=== PATIENT | female | born 1965 | race Caucasian/White ===

== ENCOUNTER 2019-06-07 14:12 | Emergency (ER) | payer OTHER, SELFPAY ==
--- NOTE | 2019-06-07 14:15 | ED.SKABFB ---
HPI - Skin/Abscess/Foreign Bdy General Chief complaint: Skin/Abscess/Foreign Body Stated complaint: Possible Shingles Time Seen by Provider: 06/07/19 14:25 Source: patient and RN notes reviewed Mode of arrival: ambulatory Limitations: no limitations History of Present Illness HPI narrative: 54-year-old female presents with concern for generalized itching. Reports rash to her groin area. Reports burning itching to the palms of her hands and the soles of her feet for 2 days. Reports some control with Benadryl that has stopped working. She denies nausea, vomiting, difficulty swallowing, swollen tongue, swollen lips, stridor, wheezing, difficulty breathing MD complaint: rash Related Data Home Medications Medication Instructions Recorded Confirmed hydrocodone-acetaminophen 1 tablet PO Q6H PRN 06/07/19 06/07/19 ustekinumab [Stelara] 260 mg IV ONCE 06/07/19 06/07/19 zolpidem [Ambien] 10 mg PO HS PRN 06/07/19 06/07/19 Allergies Allergy/AdvReac Type Severity Reaction Status Date / Time cholecalciferol (vitamin D3) Allergy Mild BROKE OUT Verified 11/25/17 19:25 WITH RASH folic acid Allergy Mild BROKE OUT Verified 11/25/17 19:25 WITH RASH codeine Allergy Unknown Verified 11/15/13 11:30 Penicillins Allergy Unknown Verified 11/15/13 11:30 pineapple AdvReac Severe THROAT Verified 11/25/17 19:25 CLOSED UP CALCIUM COMBINATION NO.1 Allergy Mild BROKE OUT Uncoded 11/25/17 19:25 WITH RASH CYANOCOBALAMIN Allergy Mild BROKE OUT Uncoded 11/25/17 19:25 WITH RASH PYRIDOXINE HCL Allergy Mild BROKE OUT Uncoded 11/25/17 19:25 WITH RASH Review of Systems Review of Systems: Narrative: CONSTITUTIONAL: Denies malaise, chills, sweats, or fever. ENT: Denies swollen lips, swollen tongue CARDIOVASCULAR: Denies chest pain, palpitations, or edema. RESPIRATORY: Denies cough or dyspnea. GASTROINTESTINAL: Denies abdominal pain, nausea, vomiting SKIN: Reports generalized itching, rash, burning palms of hands and soles of feet NEUROLOGIC: Denies headache. All systems reviewed & are unremarkable except as noted in HPI and below [facility] Social History Social History (Updated 01/28/19 @ 16:18 by Sebastien Rivers PA-C) Smoking status: Former smoker Alcohol intake: current Gender identity (if verbalized by the patient): Female Comments At time of signature, agree with nursing past medical, surgical, social and family history. There is no relevant family history pertinent to the presenting complaint Exam Narrative: Exam Narrative: GENERAL: Well-appearing, well-nourished, and in no acute distress. HEAD: Normocephalic EYES: PERRLA, conjunctivae clear ENT: Nares clear. Mucous membranes moist. Oropharynx without edema, erythema or lesions. NECK: Supple. CHEST: No respiratory distress. Clear to auscultation. No bony deformities, no asymmetry. Speaks in full sentences. HEART: Regular rate and rhythm. No murmur heard. SKIN: Warm, dry, no rash. Maculopapular rash noted to back, groin, arms NEURO: Alert and oriented x3. PSYCH: Normal mood and affect Course Course Emergency Course: Patient is aware of diagnosis, understands and agrees to treatment plan. Anticipatory guidance given. Patient agrees to follow-up as directed and is aware of reasons to seek care at the emergency department. Portions of this record may have been created with voice recognition software Vital Signs Vital signs: Vital Signs Temperature 98.2 F 06/07/19 14:21 Pulse Rate 81 06/07/19 14:21 Respiratory Rate 18 06/07/19 14:21 Blood Pressure 131/81 06/07/19 14:21 Pulse Oximetry 98 06/07/19 14:21 Temperature 98.2 F 06/07/19 14:21 Pulse Rate 81 06/07/19 14:21 Respiratory Rate 18 06/07/19 14:21 Blood Pressure 131/81 06/07/19 14:21 Pulse Oximetry 98 06/07/19 14:21 Reviewed. MDM - Skin/Abscess/Foreign Bdy MDM Narrative Medical decision making narrative: Does not appear at this time to be erythema multiforme,
[2019-06-07 14:21] VITALS: BP 131/81; PULSE 81; RESP 18; TEMP 36.8; O2SAT 98
== END 2019-06-07 14:41 | disposition home or self-care (01) ==
PROVIDERS: Emergency Provider Nurse Practitioner; PCP Family Medicine
DX: L50.9 Urticaria, unspecified (principal); Z87.891 Personal history of nicotine dependence; K50.90 Crohn's disease, unspecified, without complications
CPT/HCPCS: 99213; G0463

== ENCOUNTER 2019-06-09 06:15 | Emergency (ER) | payer OTHER, SELFPAY ==
--- NOTE | ~2019-06-09 | CT_ITS ---
EXAMINATION: CT abdomen pelvis w con DATE: 06/09/2019 07:31 INDICATION: Crohn's disease presenting with vomiting and abdominal pain TECHNIQUE: Computed tomography (CT) of the abdomen and pelvis was performed with 100 mL Omnipaque-350 intravenous contrast. Automated exposure control and iterative reconstruction technique were employe d. The dose-length product was 1512.57 mGy-cm. COMPARISON: 01/28/2019 and 12/11/2017 FINDINGS: Mild discoid atelectasis at the lingula. Heart size is normal. No pericardial or pleural effusion. Ch ronic wall thickening in the distal esophagus. Liver, gallbladder, spleen, pancreas, bilateral adrena l glands and right kidney are normal. 2 mm nonobstructing stone at a lower pole calyx of the left kid lucina. Change of likely prior terminal ileal and cecal resection with right lower quadrant ileocolic an astomosis. Remainder of the bowels are normal with no abnormal bowel wall thickening. Bladder, anteve rted uterus and bilateral adnexa are unremarkable. No free intraperitoneal gas or fluid. Unchanged mi ld likely reactive periportal lymphadenopathy. IMPRESSION: 1. Chronic wall thickening the distal esophagus which could be seen with esophagitis related to eithe r reflux or Crohn's disease. If not previously evaluated would consider endoscopy for further evaluat ion. 2. Nonobstructing left nephrolithiasis. Reviewed, dictated and finalized at location A. IMPRESSION: 1. Chronic wall thickening the distal esophagus which could be seen with esopha gitis related to either reflux or Crohn's disease. If not previously evaluated would consider endoscopy for further evaluation. 2. Nonobstructing left nephrolithiasis.
--- NOTE | 2019-06-09 06:21 | ED.ABDPAIN ---
HPI - Abdominal Pain General Chief Complaint: Abdominal Pain Stated Complaint: ABD PAIN Time Seen by Provider: 06/09/19 06:21 Source: patient Mode of arrival: ambulatory Limitations: no limitations History of Present Illness HPI narrative: Patient is a 54-year-old female with a history of Crohn's disease who presents for evaluation of upper abdominal pain. Pain has been severe this morning, sharp and stabbing in nature in the upper abdomen without radiation to the back, shoulder or lower abdomen. Patient reports a history of Crohn's disease, she follows with Dr. Roy at [facility], is taking Stelara, but has been unable to tolerate her medications this morning. Patient was seen yesterday at an urgent care for itching, hives and started on a steroid, but states she has been unable to take these medications due to the vomiting. No diarrhea, patient reports decreased amount of bowel movements. She denies abdominal distention. She denies fever, cough, congestion, chest pain or shortness of breath. Related Data Home Medications Medication Instructions Recorded Confirmed hydrocodone-acetaminophen 1 tablet PO Q6H PRN 06/07/19 06/07/19 ustekinumab [Stelara] 260 mg IV ONCE 06/07/19 06/07/19 zolpidem [Ambien] 10 mg PO HS PRN 06/07/19 06/07/19 Allergies Allergy/AdvReac Type Severity Reaction Status Date / Time folic acid Allergy Mild BROKE OUT Verified 11/25/17 19:25 WITH RASH codeine Allergy Unknown Rash Verified 06/09/19 06:28 Penicillins Allergy Unknown Rash Verified 06/09/19 06:28 pineapple AdvReac Severe THROAT Verified 11/25/17 19:25 CLOSED UP CALCIUM COMBINATION NO.1 Allergy Mild BROKE OUT Uncoded 11/25/17 19:25 WITH RASH PYRIDOXINE HCL Allergy Mild BROKE OUT Uncoded 11/25/17 19:25 WITH RASH Review of Systems Review of Systems: Narrative: CONSTITUTIONAL: Denies fever, chills, or sweats. ENT: Denies rhinorrhea, congestion, sore throat, or otalgia. CARDIOVASCULAR: Denies chest pain RESPIRATORY: Denies cough or dyspnea. GASTROINTESTINAL: Reports abdominal pain, nausea and vomiting GENITOURINARY: Denies dysuria or hematuria. SKIN: Denies rash, reports itching MUSCULOSKELETAL: Denies back pain, joint pain, or myalgia. NEUROLOGIC: Denies headache, numbness, or weakness. [facility] Past Medical History Medical History (Updated 06/09/19 @ 08:07 by Carol Freeman MD) Crohn's disease Normal colonoscopy Surgical History Surgical History (Updated 06/09/19 @ 06:29 by Carol Freeman MD) H/O colectomy Family History Family History Other Family history of arthritis Family history of mental disorder Social History Social History Smoking status: Former smoker Alcohol intake: current Gender identity (if verbalized by the patient): Female Exam Narrative: Exam Narrative: GENERAL: Awake, alert, conversant HEAD: Normocephalic, atraumatic. EYES: PERRLA and EOMI. ENT: Nares clear, no rhinorrhea or epistaxis. Mucous membranes dry NECK: Supple. CHEST: No acute distress, breathing even and nonlabored HEART: Regular rate, sinus rhythm ABDOMEN: Obese abdomen, nondistended, tender in the epigastric area EXTREMITIES: Normal range of motion. No edema. SKIN: Warm, dry, no rash. No urticaria appreciated to the arms, thorax, back, face today on exam. NEURO: No focal deficits. Alert and oriented x3 Course Course Emergency Course: Patient evaluated for abdominal pain in the setting of Crohn's disease. Patient with mild leukocytosis. On exam, she does have mild epigastric tenderness without EKG changes or other anginal equivalents. Lab and imaging evaluations are reviewed and patient is felt to be a reasonable candidate for outpatient management. Patient has no evidence of obstruction, abscess or perforation. Symptoms most consistent with esophagitis. Mild transaminitis, n
[2019-06-09 06:23] VITALS: BP 143/82; PULSE 76; RESP 18; TEMP 36.3; O2SAT 100
--- NOTE | 2019-06-09 06:28 | PC.NURSE ---
Patient attempted to urinate for sample, was not able to. Will retry.
[2019-06-09] MEDS: ONDANSETRON INJ 4 MG/2 ML VIAL IV PUSH (06:41)
[2019-06-09] MEDS: MORPHINE SULFATE 4 MG/ML INJ IV PUSH (06:41)
[2019-06-09] MEDS: SODIUM CHLORIDE 0.9% IV 1,000 ML 999 ML IV CONT (06:41)
[2019-06-09 06:46] LABS: Basophils Absolute Auto 0.1 K/mm3 (0.0-0.1); Basophils Percent Auto 0.5 % (0.2-1.2); Eosinophils Absolute Auto 0.2 K/mm3 (0-0.3); Eosinophils Percent Auto 1.2 % (0-4.4); Hematocrit 36.3 % (37.0-47.0); Hemoglobin 10.8 g/dL (12.0-15.0); Immature Granulocyte Absolute 0.07 K/mm3 (0.00-0.031); Immature Granulocyte Percent A 0.5 % (0-0.5); Lymphocytes Absolute Auto 2.78 K/mm3 (0.9-3.2); Lymphocytes Percent Auto 21.3 % (18.3-44.2); Mean Corpuscular HGB Conc 29.8 g/dl (32-36); Mean Corpuscular Hemoglobin 25.6 pg (26-34); Mean Platelet Volume 9.6 fl (7.4-10.4); Monocytes Absolute Auto 0.7 K/mm3 (0.1-0.6); Monocytes Percent Auto 5.4 % (2.6-8.5); Neutrophils Absolute Auto 9.3 K/mm3 (1.3-6.7); Neutrophils Percent Auto 71.1 % (45.5-73.1); Platelet Count Result 484 k/mm3 (150-375); Red Blood Count 4.22 M/mm3 (4.2-5.4); Red Cell Distribution Width 17.4 % (11.5-14.5); White Blood Count 13.1 K/mm3 (4.5-10.0)
[2019-06-09] MEDS: methylPREDNISolone SOD SUCC 125 MG VIAL IV PUSH (06:46)
[2019-06-09 06:48] LABS: Hypochromasia 1+ (NORMAL); Platelet Estimate Increased (Adequate)
[2019-06-09 07:00] LABS: Alkaline Phosphatase 72 U/L (38-126); Aspartate Amino Transferase 53 U/L (14-36); Bilirubin,Total 0.4 mg/dL (0.2-1.3); Blood Urea Nitrogen 10 mg/dL (7-17); Carbon Dioxide 24 mmol/L (22-30); Estimated CRCL calculation 129 ml/min; Estimated Glomerular Filt Rate > 60; Glucose 100 mg/dL (65-105)
[2019-06-09 07:37] LABS: Alanine Aminotransferase 61 U/L (4-35); Calcium 9.5 mg/dL (8.4-10.2); Chloride 110 mmol/L (98-107); Lipase 81 U/L (23-300); Sodium 140 mmol/L (137-145)
--- NOTE | 2019-06-09 08:08 | ECG_ITS ---
Measurements Intervals [place] Rate: 60 P: 10 PA: 167 QRS: -4 QRSD: 90 T: 26 QT: 402 QTc: 402 Interpretive Statements SINUS RHYTHM BASELINE WANDER- I, II NORMAL ECG Electronically Signed On 06-09-2019 9:00:57 CDT by Marcel Ortiz D.O.
[2019-06-09] MEDS: BELLADONNA ALK/PHENOB ELIX 10 ML, MAG HYDROX/ALUMINUM HYD/SIMETH 30 ML, LIDOCAINE HCL 2... PO (08:32)
[2019-06-09 08:35] VITALS: BP 137/81; PULSE 69; RESP 16; O2SAT 100
[2019-06-09 09:09] VITALS: BP 132/89
== END 2019-06-09 09:10 | disposition home or self-care (01) ==
PROVIDERS: Emergency Provider Emergency Medicine; PCP Family Medicine
DX: K20.9 Esophagitis, unspecified (principal); R10.10 Upper abdominal pain, unspecified; Z90.49 Acquired absence of other specified parts of digestive tract; K50.90 Crohn's disease, unspecified, without complications; Z87.891 Personal history of nicotine dependence; N20.0 Calculus of kidney
CPT/HCPCS: 36415; 74177; 80053; 83690; 85025; 93005; 96361; 96365; 96375; 99284; A9270; J0131; J2270; J2405; J2930; J7030; Q9967

== ENCOUNTER 2019-06-14 16:31 | Emergency (ER) | payer OTHER, SELFPAY ==
--- NOTE | ~2019-06-14 | CT_ITS ---
EXAMINATION: CT abdomen pelvis w con INDICATION: Abdominal pain, history of Crohn disease TECHNIQUE: Computed tomographic images of the abdomen and pelvis were obtained after the administrati on of 100 cc of Omnipaque 350 intravenous contrast. The dose-length product (DLP) was 1450.53 mGy-cm. Automated exposure control and iterative reconstruction technique were employed. COMPARISON: 06/09/2019 FINDINGS: Minimal dependent atelectasis is present in the lung bases. The heart size is normal. Circu mferential wall thickening of the distal esophagus is again noted. The liver, spleen, pancreas, gallb ladder, and adrenal glands are normal. The right kidney is unremarkable. There is a 2 mm nonobstructi ng stone of the left kidney. Surgical changes are noted near the terminal ileum. No pathologically en larged abdominal or pelvic lymph nodes are identified. Colonic diverticulosis is present without evid ence of diverticulitis. There is no free intraperitoneal gas or evidence of bowel obstruction. There is mild lumbar spondylosis. IMPRESSION: 1. No CT correlate for the patient's symptoms. 2. Unchanged mild wall thickening of the distal esophagus which could reflect esophagitis related to Crohn disease, consider follow-up endoscopy. 3. Nonobstructing left nephrolithiasis. Reviewed, dictated and finalized at location A. IMPRESSION: 1. No CT correlate for the patient's symptoms. 2. Unchanged mild wall thickening of the distal esophagus which could reflect e sophagitis related to Crohn disease, consider follow-up endoscopy. 3. Nonobstructing left nephrolithiasis.
[2019-06-14 16:40] VITALS: BP 127/115; PULSE 119; RESP 20; TEMP 36.4; O2SAT 98
--- NOTE | 2019-06-14 16:40 | ED_ITS ---
I attest that this documentation has been prepared under the direction and in the presence of . Osvaldo Munoz Scribe 06/14/19;16:40 HPI - Nausea/Vomiting/Diarrhea General Chief complaint: Abdominal Pain Stated complaint: vomiting and abdominal pain Time Seen by Provider: 06/14/19 16:34 History of Present Illness HPI Narrative: PCP said to come and titi bianchi- crohns doc cannot drink able to keep some things down no feve cough sore throat urinary sx diarrhea with mucous- had it before- unusual abd pain h/o pancreatitis no drinking drugs no smoking no blood thinners no cp sob swelling hives monday- went away slowly abd pain nml when she flares up Related Data Home Medications Medication Instructions Recorded Confirmed hydrocodone-acetaminophen 1 tablet PO Q6H PRN 06/07/19 06/07/19 ustekinumab [Stelara] 260 mg IV ONCE 06/07/19 06/07/19 zolpidem [Ambien] 10 mg PO HS PRN 06/07/19 06/07/19 Allergies Allergy/AdvReac Type Severity Reaction Status Date / Time folic acid Allergy Mild BROKE OUT Verified 06/14/19 16:46 WITH RASH codeine Allergy Unknown Rash Verified 06/14/19 16:46 Penicillins Allergy Unknown Rash Verified 06/14/19 16:46 pineapple AdvReac Severe THROAT Verified 06/14/19 16:46 CLOSED UP CALCIUM COMBINATION NO.1 Allergy Mild BROKE OUT Uncoded 11/25/17 19:25 WITH RASH PYRIDOXINE HCL Allergy Mild BROKE OUT Uncoded 11/25/17 19:25 WITH RASH PMFSH Past Medical History Medical History (Updated 06/10/19 @ 00:00 by Ashkan Borjas) Crohn's disease Normal colonoscopy Surgical History Surgical History (Updated 06/09/19 @ 06:29 by Carol Freeman MD) H/O colectomy Social History Social History Smoking status: Former smoker Alcohol intake: current Gender identity (if verbalized by the patient): Female Discharge Plan Discharge Prescriptions: No Action zolpidem [Ambien] 10 mg Tablet 10 mg PO HS PRN (Reason: Sleep) RF: 0 Stelara 130 mg/26 mL Solution 260 mg IV ONCE RF: 0 hydrocodone-acetaminophen 2.5-325 mg Tablet 1 tablet PO Q6H PRN (Reason: Pain, Moderate) RF: 0 prednisone 20 mg tablet 40 mg PO DAILY 5 Days Qty: 10 RF: 0 dicyclomine 20 mg tablet 20 mg PO BID Qty: 10 RF: 0 ondansetron HCl [Zofran] 4 mg tablet 4 mg PO Q8H PRN (Reason: nausea and vomiting) Qty: 7 RF: 0 methocarbamol [Robaxin-750] 750 mg tablet 750 mg PO TID Qty: 5 RF: 0 metoclopramide HCl [Reglan] 10 mg tablet 10 mg PO Q6H PRN (Reason: nausea and vomiting) Qty: 14 RF: 0
--- NOTE | 2019-06-14 16:47 | ED.ABDPAIN ---
HPI - Abdominal Pain General Chief Complaint: Abdominal Pain Stated Complaint: vomiting and abdominal pain Time Seen by Provider: 06/14/19 16:34 History of Present Illness HPI narrative: Pt is a 54 y/o female who presents to the ED with c/o generalized ABD pain that is consistent with her Crohn's disease. Her GI specialist, Dr. Roy talked to her on the phone and recommended she come to the ED. She states that she was in the ED 3 days ago with the same Sx and was Rx Zofran and D/C home. Pt notes that she has been having N/V/D, and is only able to keep some things down. She states that her BM's have mucous in them which is not unusual when she has a Crohn's flare up. Pt denies fever, cough, sore throat, urinary Sx, CP, SOB, or swelling. She notes that she had a hives breakout on Monday (5 days ago) that went away slowly. Pt has a H/O pancreatitis. She denies being on any blood thinners. MD elicited complaint: abdominal pain Pertinent past history: other (Crohn's disease) Location: diffuse Relieving factors: nothing Context: confirms history of similar episodes (Crohn's disease) Associated symptoms: nausea, vomiting and diarrhea Related Data Home Medications Medication Instructions Recorded Confirmed hydrocodone-acetaminophen 1 tablet PO Q6H PRN 06/07/19 06/07/19 ustekinumab [Stelara] 260 mg IV ONCE 06/07/19 06/07/19 zolpidem [Ambien] 10 mg PO HS PRN 06/07/19 06/07/19 Allergies Allergy/AdvReac Type Severity Reaction Status Date / Time folic acid Allergy Mild BROKE OUT Verified 06/14/19 16:46 WITH RASH codeine Allergy Unknown Rash Verified 06/14/19 16:46 Penicillins Allergy Unknown Rash Verified 06/14/19 16:46 pineapple AdvReac Severe THROAT Verified 06/14/19 16:46 CLOSED UP CALCIUM COMBINATION NO.1 Allergy Mild BROKE OUT Uncoded 11/25/17 19:25 WITH RASH PYRIDOXINE HCL Allergy Mild BROKE OUT Uncoded 11/25/17 19:25 WITH RASH Review of Systems Review of Systems: All systems reviewed & are unremarkable except as noted in HPI and below Constitutional: Constitutional: Denies fever(s) ENT: Denies sore throat Cardiovascular: Cardiovascular: Denies chest pain Respiratory: Respiratory: Denies cough and Denies dyspnea Gastrointestinal: Gastrointestinal: Reports abdominal pain, Reports diarrhea (with mucous), Reports nausea and Reports vomiting Genitourinary: Genitourinary: Denies other (urinary Sx) Integumentary/Breasts: Skin/Breast: Denies swelling and Reports rash (resolved) [facility] Past Medical History Medical History Anxiety Arthritis Bipolar 1 disorder Bronchitis Crohn's disease DDD (degenerative disc disease) Depression Fibromyalgia Normal colonoscopy Pancreatitis Shingles UTI (urinary tract infection) Surgical History Surgical History H/O bilateral cataract extraction H/O colectomy H/O dilation and curettage H/O tubal ligation History of bowel resection Hx of appendectomy Social History Social History Smoking status: Former smoker Alcohol intake: current Gender identity (if verbalized by the patient): Female Exam Narrative: Exam Narrative: GENERAL: Well-appearing, well-nourished, and in no acute distress. HEAD: Normocephalic, atraumatic. EYES: PERRLA and EOMI. ENT: Nares clear, no rhinorrhea or epistaxis. Mucous membranes moist. Oropharynx without tonsillar hypertrophy exudate or other lesions. NECK: Supple. No adenopathy or masses. CHEST: Clear to auscultation. No respiratory distress. No wheezes rales or rhonchi HEART: Regular rate and rhythm. No murmur heard. Normal peripheral pulses. ABDOMEN: Soft, diffusely tender with voluntary guarding, nondistended EXTREMITIES: Normal range of motion. No edema. SKIN: Warm, dry, no rash. NEURO: No focal deficits. Alert and oriented x3. Cranial nerves II th
[2019-06-14] MEDS: PROMETHAZINE HCL 25 MG/ML AMPUL 12.5 MG IV PUSH (17:09)
[2019-06-14] MEDS: FAMOTIDINE 20 MG/2 ML VIAL IV PUSH (17:10)
[2019-06-14] MEDS: SODIUM CHLORIDE 0.9% IV 1,000 ML 999 ML IV CONT ×2 (17:10→18:42)
[2019-06-14 17:23] LABS: Basophils Percent Auto 0.4 % (0.2-1.2); Eosinophils Absolute Auto 0.4 K/mm3 (0-0.3); Eosinophils Percent Auto 3.3 % (0-4.4); Hematocrit 38.5 % (37.0-47.0); Hemoglobin 11.7 g/dL (12.0-15.0); Immature Granulocyte Absolute 0.06 K/mm3 (0.00-0.031); Immature Granulocyte Percent A 0.5 % (0-0.5); Lymphocytes Absolute Auto 1.38 K/mm3 (0.9-3.2); Lymphocytes Percent Auto 12.3 % (18.3-44.2); Mean Corpuscular HGB Conc 30.4 g/dl (32-36); Mean Corpuscular Hemoglobin 25.3 pg (26-34); Mean Corpuscular Volume 83.3 fl (80-100); Mean Platelet Volume 9.2 fl (7.4-10.4); Monocytes Absolute Auto 0.7 K/mm3 (0.1-0.6); Monocytes Percent Auto 6.4 % (2.6-8.5); Neutrophils Absolute Auto 8.6 K/mm3 (1.3-6.7); Neutrophils Percent Auto 77.1 % (45.5-73.1); Platelet Count Result 437 k/mm3 (150-375); Red Blood Count 4.62 M/mm3 (4.2-5.4); Red Cell Distribution Width 17.2 % (11.5-14.5); White Blood Count 11.2 K/mm3 (4.5-10.0)
[2019-06-14 17:25] LABS: Add Urine Microscopic? NO; Appearance Urine Clear (Clear); Bilirubin Urine Negative (Negative); Blood Urine Negative (Negative); Color Urine Yellow (Yellow); Glucose Urine UA Negative (Negative); Ketones Urine Negative (Negative); Leukocyte Esterase Ur Negative LEU/UL (Negative); Nitrate Urine Negative (Negative); Protein Urine Negative (Negative); Specific Grav Ur 1.016 (1.001-1.035); Urobilinogen Urine Negative mg/dL (<2.0)
[2019-06-14 17:40] LABS: Alanine Aminotransferase 41 U/L (4-35); Albumin Level 4.2 g/dL (3.5-5.1); Alkaline Phosphatase 77 U/L (38-126); Aspartate Amino Transferase 51 U/L (14-36); Bilirubin,Total 0.7 mg/dL (0.2-1.3); Blood Urea Nitrogen 11 mg/dL (7-17); Calcium 9.3 mg/dL (8.4-10.2); Carbon Dioxide 24 mmol/L (22-30); Chloride 103 mmol/L (98-107); Estimated CRCL calculation 108 ml/min; Estimated Glomerular Filt Rate > 60; Glucose 136 mg/dL (65-105); Lactic Acid Reflex 2.4 mmol/L (0.7-2.1); Lipase 88 U/L (23-300); Potassium 4.1 mmol/L (3.4-5.0); Sodium 136 mmol/L (137-145)
[2019-06-14 18:13] LABS: Lactate Dehydrogenase 372 U/L (313-618)
[2019-06-14] MEDS: MORPHINE SULFATE 4 MG/ML INJ IV PUSH (18:49)
--- NOTE | 2019-06-14 18:56 | ECG_ITS ---
Measurements Intervals [place] Rate: 72 P: 31 [place]: 167 QRS: 2 QRSD: 90 T: 32 QT: 367 QTc: 404 Interpretive Statements SINUS RHYTHM NORMAL ECG Electronically Signed On 06-15-2019 7:58:12 CDT by Marcel Ortiz D.O.
[2019-06-14 19:05] VITALS: BP 116/72; PULSE 70; RESP 12; O2SAT 98
[2019-06-14 19:31] LABS: Troponin I < 0.012 ng/mL (0.000-0.034)
[2019-06-14 20:21] LABS: Reflex Lactic Acid Yes or No Add Lactic
== END 2019-06-14 20:00 | disposition home or self-care (01) ==
PROVIDERS: Emergency Medicine Emergency Medical Services; Emergency Provider Emergency Medicine; PCP Family Medicine
DX: R10.84 Generalized abdominal pain (principal); K50.90 Crohn's disease, unspecified, without complications; M19.90 Unspecified osteoarthritis, unspecified site; F41.9 Anxiety disorder, unspecified; F31.9 Bipolar disorder, unspecified; M79.7 Fibromyalgia; Z87.440 Personal history of urinary (tract) infections; Z98.42 Cataract extraction status, left eye; Z98.41 Cataract extraction status, right eye; Z90.49 Acquired absence of other specified parts of digestive tract; Z87.891 Personal history of nicotine dependence; N20.0 Calculus of kidney; R93.3 Abnormal findings on diagnostic imaging of other parts of digestive tract
CPT/HCPCS: 36415; 74177; 80053; 81003; 83605; 83615; 83690; 84484; 85025; 86140; 93005; 96361; 96365; 96375; 99284; J0131; J2270; J2550; J7030; Q9967

== ENCOUNTER 2019-08-01 08:41 | Emergency (ER) | payer OTHER, SELFPAY ==
--- NOTE | ~2019-08-01 | XR_ITS ---
EXAMINATION: XR shoulder LT min 2V DATE: 08/01/2019 09:12 INDICATION: Left shoulder pain and limited range of motion TECHNIQUE: AP internally and externally rotated, AP oblique externally rotated and transscapular Y vi ews of the left shoulder were obtained. COMPARISON: None FINDINGS: Normal alignment. No fracture.Mild osteoarthritis at the left acromioclavicular and glenohumeral yovany nts with small marginal osteophytes and minimal joint space narrowing. No erosions. Soft tissues are unremarkable. Visualized portions of the left lung are clear. IMPRESSION: Mild left acromioclavicular and glenohumeral osteoarthritis. Reviewed, dictated and finalized at location A.
[2019-08-01 08:52] VITALS: BP 128/81; PULSE 75; RESP 16; TEMP 36.6; O2SAT 99
--- NOTE | 2019-08-01 09:09 | ED.UPPEXIN ---
HPI - Extremity Injury (Upper) General Chief Complaint: Extremity Injury, Upper Stated Complaint: L arm pain/ headache Time Seen by Provider: 08/01/19 08:52 Source: patient Mode of arrival: ambulatory Limitations: no limitations History of Present Illness HPI narrative: This patient is a 54 year old female who presents with c/o left shoulder pain. She states she has been having pain to her left shoulder for over 1 month. She has pain with lifting her left arm. She denies focal numbness or weakness to left shoulder. She take chronic narcotics for chronic pain already. she takes ibuprofen once daily . She denies injury. Patient has been referred to physical therapy by her PCP. She has only gone to one treatment and she cancelled her treatment yesterday. complaint: injury to: left and shoulder Onset (ago): month(s) Related Data Home Medications Medication Instructions Recorded Confirmed hydrocodone-acetaminophen 1 tablet PO Q6H PRN 06/07/19 06/07/19 ustekinumab [Stelara] 260 mg IV ONCE 06/07/19 06/07/19 zolpidem [Ambien] 10 mg PO HS PRN 06/07/19 06/07/19 Allergies Allergy/AdvReac Type Severity Reaction Status Date / Time folic acid Allergy Mild BROKE OUT Verified 08/01/19 08:57 WITH RASH codeine Allergy Unknown Rash Verified 08/01/19 08:57 Penicillins Allergy Unknown Rash Verified 08/01/19 08:57 pineapple AdvReac Severe THROAT Verified 08/01/19 08:57 CLOSED UP CALCIUM COMBINATION NO.1 Allergy Mild BROKE OUT Uncoded 11/25/17 19:25 WITH RASH PYRIDOXINE HCL Allergy Mild BROKE OUT Uncoded 11/25/17 19:25 WITH RASH Review of Systems Review of Systems: All systems reviewed & are unremarkable except as noted in HPI and below PMFSH Social History Social History Smoking status: Former smoker Alcohol intake: current Gender identity (if verbalized by the patient): Female Exam Narrative: Exam Narrative: GENERAL: Well-appearing, well-nourished, and in no acute distress. HEAD: Normocephalic, atraumatic EYES: PERRLA and EOMI, conjunctiva clear without discharge THROAT:Mucous membranes moist, Oropharynx normal without erythema, exudate, peritonsillar swelling or fluctuance NECK: Supple, without lymphadenopathy or mass RESPIRATORY: No respiratory distress, Airway patent, Respirations non-labored, Clear to auscultation without rales, rhonchi or wheeze HEART: Regular rate and rhythm. No murmur heard. Normal peripheral pulses. ABDOMEN: Soft, nontender, nondistended, normal active bowel sounds. No masses. No rebound or guarding, No organomegaly. SKIN: Warm, dry, normal color without rash NEURO: Alert and oriented x3. CN 2-12 grossly intact. No focal deficits. PSYCH: Normal mood and affect. Cardio: Other: bilateral strong radial pulses Extrem: Other: TTP left anterior shoulder, no swelling, pain with abduction of left shoulder Course Vital Signs Vital signs: Vital Signs Temperature 97.8 F 08/01/19 08:52 Pulse Rate 75 08/01/19 08:52 Respiratory Rate 16 08/01/19 08:52 Blood Pressure 128/81 08/01/19 08:52 Pulse Oximetry 99 08/01/19 08:52 Temperature 97.8 F 08/01/19 08:52 Pulse Rate 75 08/01/19 08:52 Respiratory Rate 16 08/01/19 08:52 Blood Pressure 128/81 08/01/19 08:52 Pulse Oximetry 99 08/01/19 08:52 MDM - Extremity Injury (Upper) Imaging Data Radiologist's impression: ITS Impressions Shoulder X-Ray 08/01/19 09:14 IMPRESSION: Mild left acromioclavicular and glenohumeral osteoarthritis. Discharge Plan Discharge Clinical Impression: Acute pain of left shoulder Osteoarthritis Qualifiers: Osteoarthritis location: shoulder Osteoarthritis type: unspecified Laterality: left Qualified Code(s): M19.012 - Primary osteoarthritis, left shoulder Patient Disposition: Home, Self-Care Condition: Stable Instructions: Shoulder Pain (ED), Exercises for Shoulder Ab
[2019-08-01] MEDS: KETOROLAC (*BKC) 60 MG/2 ML VIAL IM (09:16)
== END 2019-08-01 11:02 | disposition home or self-care (01) ==
PROVIDERS: Emergency Provider General Practice; PCP Family Medicine
DX: M19.012 Primary osteoarthritis, left shoulder (principal); Z87.891 Personal history of nicotine dependence
CPT/HCPCS: 73030; 96372; 99283; A4565; J1885

== ENCOUNTER 2019-08-08 12:42 | Outpatient (CLI) | payer OTHER, SELFPAY ==
--- NOTE | ~2019-08-08 | XR_ITS ---
[id number] 08/08/2019 13:05 Indication: Cervicalgia. Pain radiating to left arm. Procedure: 3 views cervical spine Comparison: No prior studies for comparison. Findings: There is straightening of cervical lordosis. There is disc narrowing and endplate degenerat nathen change at C4-5, C5-6,, C6-7. No prevertebral soft tissue swelling. There is mild multilevel uncin ate hypertrophy. Lung apices are unremarkable. Odontoid process within normal limits. Impression: 1: Moderate cervical spondylosis. Reviewed, dictated and finalized at location A. Impression: 1: Moderate cervical spondylosis.
== END 2019-08-08 12:43 | disposition home or self-care (01) ==
PROVIDERS: PCP Family Medicine; Visit Provider Family Medicine
DX: M47.892 Other spondylosis, cervical region (principal)
CPT/HCPCS: 72040

== ENCOUNTER 2019-08-19 10:00 | Outpatient (RCR) | payer OTHER, SELFPAY ==
[2019-07-25 08:33] VITALS: BP_SYST 30
--- NOTE | 2019-07-25 09:37 | PTOPEVAL ---
PHYSICAL THERAPY EVALUATION AND PLAN OF CARE 07-25-2019 The PT evaluation was completed for the diagnosis of L shoulder pain. The plan of treatment is for 2x/week for 3 weeks. Thank you for referring Melania Laboy to [facility]. Please review, sign, date and return this plan of care [facility]. I agree with and certify that the following plan of care is medically necessary. Referring Physician Date Attending Provider: Melissa Connell, MD *PT Outpatient Evaluation Start: 07/25/19 08:33 Document 07/25/19 08:33 OSCAR (Rec: 07/25/19 09:29 OSCAR [id number]) Therapy Assessment Status Assessment Status Assessment Status Evaluation Outpatient Past Medical History Past Medical History Source of Past Medical History Patient Neurological History Hx Neurological Disorders No Significant History Cardiovascular History Hx Cardiac Disorders No Significant History Respiratory History Hx Respiratory Disorders No Significant History Gastrointestinal History Hx Crohn's Disease Yes: surgical removal of intestines Hx Ulcerative Colitis Yes: CHRONS DISEASE Genitourinary History Hx Genitourinary Disorders No Significant History Musculoskeletal History Hx Back Pain Yes: B hips Hx Fibromyalgia Yes Hx Other Musculoskeletal Disorders Yes: joint pain-UE and LE-pt reports ? due to meds Hematological History Hx Hematological Disorders No Significant History Endocrine History Hx Endocrine Disorders No Significant History HEENT History Hx HEENT Disorders No Significant History Reproductive History Hx Tubal Ligation Yes Psychosocial History Hx Anxiety Yes Hx Bipolar Disorder Yes: does not like how the meds make her feel-not taking Hx Other Psychiatric Disorders Yes: reports just try to stay away from people & do OK Evaluation Information Problem Diagnosis L shoulder pain Onset May 2019 Subjective Information just woke up one morning and Query Text:As Reported By Patient/ could not use arm; no trauma Family or injury to shoulder; no testing or imaging; Prior Level of Function Medications Home Meds (Include: OTC, RX, Vitamins, baclofen, folic acid, Herbals, Dose, Route,and Frequency) hydrocodone--back and joint Query Text:Home Med Entries Will No pain; ibuprofen, ambien Longer Recall From Past Visits. Home Meds Must Be Re-entered With Each Visit. Home Setting Living Situation With Friend Mobility Assistive Devices (Used Last 3 None,Cane,Walker, Standard Months) Comments Additional Prior Level of Function live with boy friend; have
--- NOTE | 2019-07-31 15:24 | PCPTNOTE ---
Patient called & cancelled scheduled appointment this date due to illness
[2019-08-16 10:00] VITALS: BP_SYST 45
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
--- NOTE | 2019-08-28 09:37 | PCPTNOTE ---
Patient did not show up for scheduled appointment this date.
--- NOTE | 2019-09-17 10:11 | PCPTNOTE ---
PHYSICAL THERAPY DISCHARGE 09-17-2019 Attending Provider: Melissa Connell MD Patient:Melania Laboy Date of :1965 Ms. Laboy has not returned for any further treatments since 08/19/2019, therefore she will be discharged at this time. She has received 5 PT sessions, from July 24 to August 18, for the diagnosis of neck and L shoulder pain. She then stopped attending therapy. The goals were not assessed. Thank you for referring Melania to [facility]. Please review, sign, date and return this discharge summary SHENA. I have been updated about the patient's current status and I agree with discharge from the above service at this time. Referring Physician Date
== END 2019-10-08 10:38 | disposition home or self-care (01) ==
LOC: ANHPT 10:00
PROVIDERS: PCP Family Medicine; Visit Provider Family Medicine
DX: M25.512 Pain in left shoulder (principal)
CPT/HCPCS: 97014; 97110; 97140; 97161; G0283

== ENCOUNTER 2019-09-29 12:58 | Outpatient (CLI) | payer OTHER, SELFPAY ==
--- NOTE | ~2019-09-29 | MR_ITS ---
EXAMINATION: MR shoulder LT wo con DATE: 09/29/2019 13:57 INDICATION: Left shoulder pain. TECHNIQUE: Magnetic resonance imaging (MRI) of the left shoulder was performed without intravenous co ntrast. Sequences included axial PD-weighted FS FSE, coronal oblique PD-weighted FS FSE and T2-weight ed FS FSE, and sagittal oblique T2-weighted FS FSE and T1-weighted FSE. COMPARISON: Left shoulder radiographs 08/01/2019 FINDINGS: Coracoacromial arch: The acromion undersurface is curved in morphology (type II). Subacromial spurring is noted. There is mild acromioclavicular joint osteoarthritis. There is mild subacromial/subdeltoid bursitis. Rotator cuff: Motion artifact decreases sensitivity. There is moderate supraspinatus and infraspinatus tendinopathy . Teres minor tendon is normal. There is mild subscapularis tendinopathy. There is no asymmetric fatt y atrophy of the rotator cuff muscle bellies. Biceps tendon and glenoid labrum: Biceps tendon is in bicipital groove. Intra-articular biceps tendon is normal. The glenoid labrum is intact, but motion artifact decreases sensitivity. Fluid: There is no glenohumeral joint effusion. Bones/cartilage: Glenoid cartilage is normal. Humeral head cartilage is normal. IMPRESSION: 1. Moderate rotator cuff tendinopathy. No tear. Motion artifact decreases sensitivity. 2. Mild subacromial/subdeltoid bursitis. 3. Mild acromioclavicular joint osteoarthritis. Reviewed, dictated and finalized at location A. IMPRESSION: 1. Moderate rotator cuff tendinopathy. No tear. Motion artifact decreases sensi tivity. 2. Mild subacromial/subdeltoid bursitis. 3. Mild acromioclavicular joint osteoarthritis.
== END 2019-09-29 12:59 | disposition home or self-care (01) ==
PROVIDERS: PCP Family Medicine; Visit Provider Orthopaedic Surgery
DX: M75.52 Bursitis of left shoulder (principal); M19.012 Primary osteoarthritis, left shoulder
CPT/HCPCS: 73221

== ENCOUNTER 2019-11-15 10:30 | Outpatient (RCR) | payer OTHER, SELFPAY ==
[2019-10-18 08:05] VITALS: BP_SYST 70
--- NOTE | 2019-10-18 08:53 | PTOPEVAL ---
PHYSICAL THERAPY EVALUATION AND PLAN OF CARE 10-18-2019 The PT evaluation was completed for the diagnosis of L shoulder pain. The plan of treatment is scheduled for 2x/wk for 4 weeks. Thank you for referring Melania Laboy to [facility]. Please review, sign, date and return this plan of care SHENA. I agree with and certify that the following plan of care is medically necessary. Referring Physician Date Attending Provider: Gregory Triana MD *PT Outpatient Evaluation Start: 10/18/19 08:12 Document 10/18/19 08:05 OSCAR (Rec: 10/18/19 08:48 OSCAR [id number]) Therapy Assessment Status Assessment Status Assessment Status Evaluation Outpatient Past Medical History Past Medical History Source of Past Medical History Patient Neurological History Hx Neurological Disorders No Significant History Cardiovascular History Hx Cardiac Disorders No Significant History Respiratory History Hx Respiratory Disorders No Significant History Gastrointestinal History Hx Crohn's Disease Yes: surgical removal of intestines Hx Ulcerative Colitis Yes: CHRONS DISEASE Genitourinary History Hx Genitourinary Disorders No Significant History Musculoskeletal History Hx Back Pain Yes: B hips Hx Fibromyalgia Yes Hx Other Musculoskeletal Disorders Yes: joint pain-UE and LE's; neck pain-L 3,4,5 fingers numb Hematological History Hx Hematological Disorders No Significant History Endocrine History Hx Endocrine Disorders No Significant History HEENT History Hx HEENT Disorders No Significant History Reproductive History Hx Tubal Ligation Yes Psychosocial History Hx Anxiety Yes Hx Bipolar Disorder Yes: does not like how the meds make her feel-not taking Hx Other Psychiatric Disorders Yes: reports just try to stay away from people & do OK Evaluation Information Problem Diagnosis L shoulder pain Onset May 2019 Subjective Information gradual increase in shoulder Query Text:As Reported By Patient/ pain; no trauma or injury to Family shoulder; Diagnostic Tests MRI For This Problem Yes: mod rot cuff tendonitis, mild subdeltoid bursitis,mild OA A-C jt Previous Treatments Previous Treatments For This Problem July 2019 to September 2019;doing band exercises at home from prev PT Prior Level of Function Activity Level (Last 3 Months) Occupation not working outside home Hand Dominance Right Activity of Daily Living Ability Independent Indoor/Home Mobility Indepe
--- NOTE | 2019-11-08 09:09 | PCPTNOTE ---
pt called and canceled due to not feeling well;
--- NOTE | 2019-11-12 11:49 | PCPTNOTE ---
pt did not show for today's treatment session.
--- NOTE | 2019-11-15 11:05 | PTOPEVAL ---
PHYSICAL THERAPY DISCHARGE 11-15-2019 Ms. Laboy has received 5 PT sessions, from October 17 to today, for the diagnosis of L shoulder pain. She called and canceled one and did not show for one appointment. The goals were achieved-- except reported tolerance for lying on her L side and posture of her L shoulder--she continues to have rounded positioning. Thank you for referring Melania Laboy to [facility] Please review, sign, date and return this discharge SHENA. I agree with and certify that the following plan of care is medically necessary. Referring Physician Date Attending Provider: Gregory Triana MD *PT Outpatient Discharge Start: 10/18/19 08:12 Document 11/15/19 10:36 OSCAR (Rec: 11/15/19 11:01 OSCAR [id number]) Subjective Information Melania reports:Chron's disease Query Text:As Reported By Patient/ is flaring up--about time for Family her injection; have been using heat and hand massager over shoulder- helps pain; doing exercises at home;doing everything that she normally does at home with her L arm; agrees to d/c from PT. Pain Assessment Timing of Pain Assessment Timing of Pain Assessment Assessment Pain Scale Pain Scale Used Numeric (1 - 10) Self Report Pain Assessment Left Shoulder(s) Reported Pain Level 3 Other Pain Description stabbing at anterior shoulder Lowest Pain Intensity 3 Greatest Pain Intensity 4 Pain Aggravating Factors Exercise/Activity Other Pain Aggravating Factors cooler weather; Additional Pain Comments been using arm,past few days hurting more- ? colder weather Pain Score Pain Score 3: Self Report Additional Pain Score Comments can lie on L shoulder for few minutes then pain increases; no headaches; Upper Extremity Range of Motion General Upper Extremity Range of Motion Gross Upper Extremity Range of Motion active L shoulder ROM in Comments standing: flexion 140', abduct 140', IR- reach behind back, fingers to lower edge scapula; ER- reach palm to back of head; Upper Extremity Muscle Strength Testing General Upper Extremity Strength Gross Upper Extremity Strength Comments standing L shoulder resisted with green theraband exercises : flexion, abduction, IR and ER motions, elbow flexion and extension motions; Palpation Assessment Palpation Palpation tenderness and pt jumped with light pressure over anterior
== END 2020-01-02 09:47 | disposition home or self-care (01) ==
LOC: ANHPT 10:30
PROVIDERS: PCP Family Medicine; Visit Provider Orthopaedic Surgery
DX: M25.512 Pain in left shoulder (principal)
CPT/HCPCS: 97035; 97110; 97140; 97161

== ENCOUNTER 2020-01-14 20:43 | Observation (INO) | payer OTHER, SELFPAY ==
--- NOTE | ~2020-01-14 | CT_ITS ---
EXAMINATION: CT abdomen pelvis w con DATE: 01/14/2020 22:14 INDICATION: Epigastric abdominal pain. TECHNIQUE: Computed tomography (CT) of the abdomen and pelvis was performed with 100 mL Omnipaque 350 intravenous contrast. Automated exposure control and iterative reconstruction technique were employe d. The dose-length product was 1480.64 mGy-cm. COMPARISON: CT abdomen and pelvis 06/14/19 FINDINGS: The visualized portions of the lung bases demonstrate minimal atelectasis. A calcified left lung nodule is consistent with old granulomatous disease. No pleural effusion. The heart size is nor mal. No pericardial effusion. There is a small sliding hiatal hernia. The liver and spleen are normal . The gallbladder is distended. The pancreas, adrenal glands, and kidneys are normal. There are surgi connor changes at the ileocolic junction. There are changes of ileocolic anastomosis. 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 There is mild periportal lymphadenopathy . There is no free intraperitoneal fluid. There is severe degenerative disc disease at L5-S1. There i s bilateral sacroiliitis, consistent with inflammatory bowel disease associated arthritis. IMPRESSION: 1. Small sliding hiatal hernia. 2. Gallbladder distention, which may secondary to fasting or acute cholecystitis. Correlate with phys ical exam. 3. 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 4. Mild periportal lymphadenopathy, likely reactive. Reviewed, dictated and finalized at location A. OTAPE OPERATOR IMPRESSION: 1. Small sliding hiatal hernia. 2. Gallbladder distention, which may secondary to fasting or acute cholecystiti s. Correlate with physical exam. 3. 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 4. Mild periportal lymphadenopathy, likely reactive.
--- NOTE | ~2020-01-14 | US_ITS ---
EXAMINATION: US right upper quadrant DATE: 01/15/2020 07:38 INDICATION: Right upper quadrant pain TECHNIQUE: Multiple grayscale and Doppler ultrasound images of the abdomen were obtained. COMPARISON: 09/07/[address] from yesterday FINDINGS: The head and body of the pancreas are normal. The pancreatic tail is obscured by bowel gas. The liver demonstrates increased echogenicity, heterogenous echotexture, and decreased through trans mission. No surface nodularity. Normal hepatopetal flow in the main portal vein. The gallbladder is d istended. There is sludge in the gallbladder. No gallbladder wall thickening or pericholecystic fluid are identified. The normal common bile duct measures 6 mm. There was no sonographic Newton sign. IMPRESSION: 1. Gallbladder distention and gallbladder sludge without additional findings of cholecystitis. 2. Diffuse hepatic steatosis. Reviewed, dictated and finalized at location A. ING CREW SUPERVISOR
--- NOTE | 2020-01-14 20:47 | ED.ABDPAIN ---
HPI - Abdominal Pain General Chief Complaint: Abdominal Pain Stated Complaint: abd pain Time Seen by Provider: 01/14/20 20:47 Source: patient and EMS Mode of arrival: EMS Limitations: no limitations History of Present Illness HPI narrative: Patient is a 54-year-old female with a history of Crohn's disease, pancreatitis who presents for evaluation of upper abdominal pain. Patient reports generalized abdominal pain around the past 4 to 5 days, worsening in severity tonight after the patient had a milkshake. She states pain is epigastric in nature without radiation to the chest. No lower abdominal pain. Pain is sharp, stabbing in nature. She reports associated nausea and multiple episodes of vomiting. Patient denies fever, chills, cough. Pt with Stelara injection at her GI physician's office yesterday. Related Data Home Medications Medication Instructions Recorded Confirmed hydrocodone-acetaminophen 1 tablet PO Q6H PRN 06/07/19 12/30/19 ustekinumab [Stelara] 260 mg IV ONCE 06/07/19 12/30/19 zolpidem [Ambien] 10 mg PO HS PRN 06/07/19 12/30/19 Allergies Allergy/AdvReac Type Severity Reaction Status Date / Time folic acid Allergy Mild BROKE OUT Verified 12/30/19 09:44 WITH RASH codeine Allergy Unknown Rash Verified 12/30/19 09:44 Penicillins Allergy Unknown Rash Verified 12/30/19 09:44 pyridoxine Allergy Unknown Rash Verified 01/14/20 21:29 pineapple AdvReac Severe THROAT Verified 12/30/19 09:44 CLOSED UP CALCIUM COMBINATION NO.1 Allergy Mild BROKE OUT Uncoded 12/30/19 09:44 WITH RASH PYRIDOXINE HCL Allergy Mild BROKE OUT Uncoded 12/30/19 09:44 WITH RASH Review of Systems Review of Systems: Narrative: CONSTITUTIONAL: Denies fever, chills, or sweats. ENT: Denies rhinorrhea, congestion, sore throat, or otalgia. CARDIOVASCULAR: Denies chest pain, palpitations, or edema. RESPIRATORY: Denies cough or dyspnea. GASTROINTESTINAL: Reports abdominal pain, nausea and vomiting GENITOURINARY: Denies dysuria or hematuria. SKIN: Denies rash or itching. MUSCULOSKELETAL: Denies back pain, joint pain, or myalgia. NEUROLOGIC: Denies headache, numbness, or weakness. [facility] Past Medical History Medical History (Updated 01/15/20 @ 01:00 by Carol Freeman MD) Anxiety Arthritis Bipolar 1 disorder Bronchitis Crohn's disease DDD (degenerative disc disease) Depression Diarrhea Fibromyalgia Nausea & vomiting Normal colonoscopy Pancreatitis Shingles Sleep disorder Stomach pain Stomach ulcer UTI (urinary tract infection) Weight gain Surgical History Surgical History H/O bilateral cataract extraction H/O colectomy H/O dilation and curettage H/O tubal ligation History of bowel resection Hx of appendectomy Family History Family History Other Family history of arthritis Family history of mental disorder Hypertension Nerve disorder Social History Social History Smoking status: Former smoker Alcohol intake: never Gender identity (if verbalized by the patient): Female Exam Narrative: Exam Narrative: GENERAL: Awake, alert, actively vomiting in the room HEAD: Normocephalic, atraumatic. EYES: PERRLA and EOMI. ENT: Nares clear, no rhinorrhea or epistaxis. Mucous membranes moist. NECK: Supple. CHEST: No respiratory distress, breathing even and non labored HEART: Regular rate, sinus rhythm ABDOMEN: Obese, Non distended, tender in the epigastric area, RUQ tenderness, LLQ tenderness, positive guarding, no rebound, non rigid EXTREMITIES: Normal range of motion. No edema. SKIN: Warm, dry, no rash. NEURO:No focal deficits. Alert and oriented x3 Course Vital Signs Vital signs: Vital Signs Temperature 36.9 C 01/14/20 20:48 Pulse Rate 91 01/14/20 20:48 Respiratory Rate 22 H 01/14/20 20:48 Blood Pressure 139/87 01/14/20
[2020-01-14 20:48] VITALS: BP 139/87; PULSE 91; RESP 22; TEMP 36.9; O2SAT 94
--- NOTE | 2020-01-14 21:09 | ECG_ITS ---
Measurements Intervals [place] Rate: 71 P: 39 WA: 180 QRS: -1 QRSD: 91 T: 31 QT: 380 QTc: 415 Interpretive Statements SINUS RHYTHM BASELINE ARTIFACT- I, II NORMAL ECG Electronically Signed On 01-15-2020 6:58:56 TRUST ADMINISTRATIVE ASSISTANT by Marcel Ortiz D.O.
[2020-01-14 21:30] LABS: Basophils Absolute Auto 0.1 K/mm3 (0.0-0.1); Basophils Percent Auto 0.6 % (0.2-1.2); Eosinophils Absolute Auto 0.5 K/mm3 (0-0.3); Eosinophils Percent Auto 5.6 % (0-4.4); Hematocrit 37.2 % (37.0-47.0); Hemoglobin 12.4 g/dL (12.0-15.0); Immature Granulocyte Absolute 0.03 K/mm3 (0.00-0.031); Immature Granulocyte Percent A 0.4 % (0-0.5); Lymphocytes Absolute Auto 1.62 K/mm3 (0.9-3.2); Mean Corpuscular HGB Conc 33.3 g/dl (32-36); Mean Corpuscular Hemoglobin 28.7 pg (26-34); Mean Corpuscular Volume 86.1 fl (80-100); Mean Platelet Volume 9.3 fl (7.4-10.4); Monocytes Absolute Auto 0.5 K/mm3 (0.1-0.6); Monocytes Percent Auto 5.7 % (2.6-8.5); Neutrophils Absolute Auto 5.5 K/mm3 (1.3-6.7); Neutrophils Percent Auto 67.7 % (45.5-73.1); Platelet Count Result 285 k/mm3 (150-375); Red Blood Count 4.32 M/mm3 (4.2-5.4); Red Cell Distribution Width 14.9 % (11.5-14.5); White Blood Count 8.1 K/mm3 (4.5-10.0)
[2020-01-14] MEDS: FAMOTIDINE 20 MG/2 ML VIAL IV PUSH (21:37)
[2020-01-14] MEDS: ONDANSETRON INJ 4 MG/2 ML VIAL IV PUSH (21:37)
[2020-01-14] MEDS: MORPHINE SULFATE (*CRX) 4 MG/ML INJ IV PUSH (21:37)
[2020-01-14] MEDS: SODIUM CHLORIDE 0.9% IV 2,000 ML 999 ML IV CONT (21:38)
[2020-01-14 21:41] LABS: Prothrombin Time 14.2 Seconds (11.1-14.7)
[2020-01-14 21:42] LABS: Partial Thromboplastin Time 33.7 SECONDS (22.3-36.8)
[2020-01-14 21:43] LABS: Alanine Aminotransferase 19 U/L (4-35); Albumin Level 4.2 g/dL (3.5-5.1); Alkaline Phosphatase 76 U/L (38-126); Anion Gap 10 mmol/L (8-16); Aspartate Amino Transferase 30 U/L (14-36); Bilirubin,Total 0.5 mg/dL (0.2-1.3); Blood Urea Nitrogen 13 mg/dL (7-17); Calcium 9.1 mg/dL (8.4-10.2); Carbon Dioxide 29 mmol/L (22-30); Chloride 104 mmol/L (98-107); Estimated CRCL calculation 107 ml/min; Estimated Glomerular Filt Rate > 60; Glucose 104 mg/dL (65-105); Lipase 169 U/L (23-300); Potassium 3.8 mmol/L (3.4-5.0); Sodium 143 mmol/L (137-145)
[2020-01-14 21:55] LABS: Troponin I < 0.012 ng/mL (0.000-0.034)
[2020-01-14 22:33] VITALS: BP 130/71; PULSE 73; RESP 20; O2SAT 95
[2020-01-14] MEDS: HYDROmorphone HCL INJ (*CRX) 1 MG/ML SYR 0.5 MG IV PUSH (22:50)
[2020-01-14 23:17] VITALS: BP 122/78; PULSE 79; RESP 20; O2SAT 97
[2020-01-14 23:32] LABS: Add Urine Microscopic? NO; Appearance Urine Clear (Clear); Bilirubin Urine Negative (Negative); Blood Urine Negative (Negative); Color Urine Yellow (Yellow); Glucose Urine UA Negative (Negative); Ketones Urine Negative (Negative); Leukocyte Esterase Ur Negative LEU/UL (Negative); Nitrate Urine Negative (Negative); Protein Urine Negative (Negative); Urobilinogen Urine Negative mg/dL (<2.0)
[2020-01-14 23:39] LABS: Specific Grav Ur > 1.060 (1.001-1.035)
[2020-01-14 23:54] LABS: CRP 0.8 mg/dL (<1.0)
[2020-01-15] MEDS: METOCLOPRAMIDE HCL INJ 10 MG/2 ML VIAL IV PUSH (01:07)
[2020-01-15 01:10] VITALS: BP 132/79; PULSE 79; RESP 20; O2SAT 96
[2020-01-15] MEDS: HYDROmorphone HCL INJ (*CRX) 1 MG/ML SYR 0.5 MG IV PUSH ×6 (01:19→20:38)
[2020-01-15] MEDS: SODIUM CHLORIDE 0.9% IV 1,000 ML 999 ML IV CONT (01:24)
[2020-01-15] MEDS: DICYCLOMINE HCL INJ 20 MG/2 ML VIAL IM (01:24)
--- NOTE | 2020-01-15 01:45 | ADMGEN ---
This patient, Melania Laboy, was admitted to Medical Room 250-01. Patient/family oriented to hospital policies and general routines including ID bracelet, bed and alarms, visiting hours, pain management, procedures, bathroom and other care routines, personal items, smoking policy, room service/diet, and visiting hours. Information on how to activate the Rapid Response Team has been discussed. Patient/Family are encouraged to report perceived risks to care and to ask questions if they do not understand what they are told or what they should do.
[2020-01-15] MEDS: SODIUM CHLORIDE 0.9% IV 1,000 ML 125 ML IV CONT ×3 (02:13→18:27)
[2020-01-15 02:27] VITALS: BP 117/63; PULSE 69; RESP 18; TEMP 36.2; O2SAT 97
[2020-01-15 02:28] VITALS: BMI 41.6
--- NOTE | 2020-01-15 05:02 | PM.IMHP ---
H&P: HPI History of Present Illness Date/Time: 01/15/20 05:02 Chief complaint: RUQ abd pain, intractable nausea and vomiting Narrative: Melania Laboy is a 54 year old female with past medical history of Crohn's disease, bipolar disorder, anxiety/ depression who presents to the ED with complaints of nausea/ vomiting /abdominal pain. She states the symptom onset was after having a milkshake. She does not lactose intolerant and can have cheese and milk in small quantities however this large quantity milkshake pushed over the edge. patient is unsure if her abdominal pain episodes are associated with fatty meals , she still has her gallbladder. Patient is noncompliant with her psych psychiatric medications and does not take anything currently. Patient also has a lot of anxiety /depression, recently many neighbors have left her neighborhood. She is also concerned about a lady that lives next door that she may fall and break a hip. patient's anxiety is untreated Previously was on Ativan and Xanax. 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 ER doctor discussed with GI primary who asked to hold off on steroids and give Reglan. ER doc discussed with surgery for consult for possible cholecystectomy and ordered limited abdominal ultrasound to rule out cholecystitis. Patient has IV pain medication and IV fluids while being kept NPO. Patient admitted for observation. Review of Systems Review of Systems: Narrative: Constitutional: No Fever, No Chills, No Night Sweats, No Fatigue, No Malaise ENT/Mouth: No Hearing Changes, No Ear Pain, No Nasal Congestion, No Sinus Pain, No Hoarseness, No sore throat, No Rhinorrhea, No Swallowing Difficulty Eyes: No Eye Pain, No Redness, No Vision Changes Cardiovascular: No Chest Pain, No Palpitations, No Dyspnea on Exertion, No Orthopnea, No Claudication, No Edema Respiratory: No Cough, No Sputum, No Wheezing, No Shortness of Breath Gastrointestinal: endorses abdominal pain, nausea /vomiting. Patient states she has chronic loose stools and bowels are at baseline from crohns Genitourinary: No Dysuria, No Urinary Frequency, No Hematuria, No Urinary Incontinence, No Urgency Musculoskeletal: No Arthralgias, No Myalgias, No Joint Swelling, No Joint Stiffness, No Back Pain Skin: No Skin Lesions, No Pruritis, No Hair Changes Neuro: No Weakness, No Numbness, No Paresthesias, No Loss of Consciousness, No Syncope, No Dizziness, No Headache Psych: No Anxiety/Panic, No Depression, No Insomnia Heme: No Bruising, No Bleeding Lymph: No Adenopathy Endocrine: No Polyuria, No Polydipsia, No Temperature Intolerance [facility] Past Medical History Medical History (Updated 01/15/20 @ 05:07 by Tristan Armstrong DO) Anxiety Arthritis Bipolar 1 disorder Bronchitis Crohn's disease DDD (degenerative disc disease) Depression Diarrhea Fibromyalgia Nausea & vomiting Normal colonoscopy Pancreatitis Shingles Sleep disorder Stomach pain Stomach ulcer UTI (urinary tract infection) Weight gain Surgical History Surgical History H/O bilateral cataract extraction H/O colectomy H/O dilation and curettage H/O tubal ligation History of bowel resection Hx of appendectomy Family History Family History (Updated 01/15/20 @ 05:40 by Tristan Armstrong DO) Mother Depression Suicide Father Gastric artery aneurysm Other Family history of arthritis Family history of mental disorder Hypertension Nerve disorder Social History Social History Smoking status: Current some day smoker Tobacco type: cigarettes Alcohol intake: former Substance use: never Substance use type: does not use Gender identity (if verbalized by the patient): Female Spiritual care concerns: No Meds Home Medications and Allergies Home Medications Medicatio
[2020-01-15 08:04] VITALS: RESP 16; O2SAT 98
[2020-01-15] MEDS: ONDANSETRON INJ 4 MG/2 ML VIAL IV PUSH ×4 (08:04→20:40)
[2020-01-15] MEDS: diphenhydrAMINE HCl CAP 25 MG CAPSULE PO (08:11)
[2020-01-15] MEDS: ENOXAPARIN 40 MG/0.4 ML SYRINGE SUB-Q (08:28)
[2020-01-15 09:30] VITALS: BP 117/68; PULSE 57; RESP 16; TEMP 36.3; O2SAT 98
--- NOTE | 2020-01-15 09:49 | PM.IMPN ---
Progress Note: A&P Assessment and Plan (1) Intractable nausea and vomiting: Code(s): R11.2 - Nausea with vomiting, unspecified Status: Acute Assessment and Plan: Continue zofran as needed. Begin reglan per GI recommendations. Add protonix IV. Discussed with Dr. Martin. Will allow pt to advance diet as tolerated to clear liquids if her nausea improves. She has not had any vomiting today. Continue supportive care with IV fluid hydration and antiemetics. Continue to monitor. (2) Right upper quadrant abdominal pain: Code(s): R10.11 - Right upper quadrant pain Status: Acute Assessment and Plan: The patient has abdominal tenderness to light palpation with guarding in anticipation of palpation. CT abd/pelvis demonstrated gallbladder distention, chronic fistula between terminal ileum and ileocolonic anastomosis, likely reactive periportal lymphadenopathy. Lipase is normal. LFTs and bilirubin are normal. RUQ US was ordered and shows gallbladder distention and sludge without acute findings of cholecystitis. WBC is normal today and she is afebrile so antibiotics are not felt indicated. Dr. Martin was consulted and input is greatly appreciated. Continue supportive care with antiemetics and analgesics as needed, bentyl for spasms, and protonix. Begin trial of reglan to see if this offers any benefit. Await further recommendations from general surgery. (3) Gallbladder sludge: Onset Date: ~01/15/20 Code(s): K82.8 - Other specified diseases of gallbladder Status: Acute Assessment and Plan: Visualized on RUQ US. General surgery has been consulted and input is greatly appreciated. (4) Crohn's disease: Onset Date: ~2007 Qualifiers: Digestive disease complication type: with fistula Gastrointestinal tract location: small and large intestine Qualified Code(s): K50.813 - Crohn's disease of both small and large intestine with fistula Code(s): K50.90 - Crohn's disease, unspecified, without complications Status: Chronic Assessment and Plan: She follows with Dr. Kaela Roy, GI at [facility]. Her imaging findings do not suggest acute Chron's flare. The ER provider spoke with [facility] GI who did not recommend steroids as this does not appear to be Chron's flare. She has a chronic fistula, stable and unchanged from prior imaging. She received her stelara injection 01/12. [facility] GI recently recommended reglan during her last follow-up as gastroparesis was felt to be contributing to her sx but she had not filled the prescription yet. Continue GI recommendations. (5) Insomnia: Code(s): G47.00 - Insomnia, unspecified Status: Chronic Assessment and Plan: Continue prior to admission ambkristie. (6) Bipolar 1 disorder: Onset Date: Unknown Code(s): F31.9 - Bipolar disorder, unspecified Status: Chronic Assessment and Plan: She reports a hx of bipolar disorder, anxiety, and depression. She is not currently taking any medications as she felt that the medications were making things worse. She no longer follows with psychiatry. She will need to follow-up outpatient with her PCP. Subjective Date/time seen: 01/15/20 09:49 Mrs. Laboy is a 54 y.o. female with PMH significant Chron's disease, bipolar disorder, anxiety, and depression who is seen in follow-up for nausea, vomiting, and abdominal pain. She reports several episodes of vomiting yesterday. She has not had any further vomiting today. She reports mild nausea. She is still having epigastric and RUQ discomfort. She has not eaten anything yet. She denies subjective fever and chills. She had one loose bowel movement today which is regular for her with Chron's disease. She is established with Kaela Roy GI at [facility]. She had a hx of bowel resection at [facility]. She had her stelara injection yesterday per GI 01/12. Review of Systems Review of Systems: All systems
[2020-01-15] MEDS: METOCLOPRAMIDE HCL INJ 10 MG/2 ML VIAL 5 MG IV PUSH ×3 (12:06→23:58)
--- NOTE | 2020-01-15 13:40 | PM.CNGS ---
Assessment and Plan Assessment and plan (1) Epigastric abdominal pain: Onset Date: ~01/14/20 Code(s): R10.13 - Epigastric pain Status: Acute Assessment and Plan: Patient presented to the emergency room last night with this. She is known to have gastritis from a recent upper GI endoscopy. She is also known to have Crohn's disease and follows with a leadlighter at [facility]. I have discussed my recommendations with both the patient and hospitalist. Since there is no signs of acute cholecystitis I would recommend consideration for Actigall once the patient's nausea and vomiting is under control. For now the patient needs to get on the recommended medications from her gastrologist which includes Reglan and Bentyl to control what was felt to be some element of gastritis and possible moderate gastroparesis. She may benefit from a proton pump inhibitor. ( apparently gets itching to H2 blockers --- Pepcid) . She may have to be monitored closely when given the 1st dose of this. This is because she thinks that she is allergic to multiple different drugs used for reflux. I have discussed with her that I believe that the Actigall should not specifically interact with the immune modulating biologic (Srelara) that she takes for her Crohn's disease but that she should discuss this thoroughly with her GI doctor at her next visit. Since our CT scan did show a chronic fistula at her old ileocolonic anastomotic site she may be fisher to consider surgical consultation in concert with a GI surgeon who her leadlighter feels comfortable will with at [facility]. We should provide her with a disc containing the images of the CT scan from last night in the ultrasound from today when she is discharged. If surgical intervention is considered then they may be able to do laparoscopic cholecystectomy at the same time that they operate on her area of inflammation related to her Crohn's disease at the old ileocolic colonic anastomotic site. I believe that if this is to be done she would be best served by being at [facility] with both her leadlighter and the GI surgeon working in concert. She seems understand and believes this is a good plan. We will try to get her nausea, vomiting, and abdominal pain under control and see if we can discharge her to be followed up by them as outpatient. Will follow with you for few days as we try to control this problem for her. (2) Gallbladder sludge: Onset Date: ~01/15/20 Code(s): K82.8 - Other specified diseases of gallbladder Status: Acute Assessment and Plan: As recommended above under epigastric abdominal pain. (3) Bipolar 1 disorder: Onset Date: Unknown Code(s): F31.9 - Bipolar disorder, unspecified Status: Chronic Assessment and Plan: Will leave this to hospitalist discretion as to her resuming meds for this since it may be serious of the patient is now off of these without MD consent. (4) Crohn's disease: Onset Date: ~2007 Qualifiers: Gastrointestinal tract location: small and large intestine Digestive disease complication type: with fistula Qualified Code(s): K50.813 - Crohn's disease of both small and large intestine with fistula Code(s): K50.90 - Crohn's disease, unspecified, without complications Status: Chronic Assessment and Plan: Patient has had 1 previous surgery for this which sounds as if it was a standard right hemicolectomy for Crohn's disease which included the appendix back in 2007 at [facility]. She could not remember the surgeon's name the did it. She now has evidence for some continuing inflammation at the ileocolonic anastomotic site with a possible fistula between bowel loops. (5) Rotator cuff tendinitis: Onset Date: ~11/2019 Qualifiers: Laterality: left Qualified Code(s): M75.82 - Other shoulder lesions, left shoulder Code(s): M75.80 - Othe
[2020-01-15 14:12] VITALS: BP 101/58; PULSE 60; RESP 16; TEMP 36.5; O2SAT 99
--- NOTE | 2020-01-15 15:03 | PC.NURSE ---
On 01/15/20, the student, Luisana Lemon, provided care and completed [facility] documentation on this patient. I have reviewed the student's documentation and agree with the findings.
[2020-01-15] MEDS: DICYCLOMINE HCL 10 MG CAPSULE 20 MG PO ×2 (17:58→20:40)
[2020-01-15 20:00] VITALS: BP 107/54; PULSE 58; RESP 18; TEMP 36.3; O2SAT 95
[2020-01-15] MEDS: ZOLPIDEM TARTRATE (*CRX) 5 MG TABLET 10 MG PO (20:39)
[2020-01-15] MEDS: PANTOPRAZOLE SODIUM IV 40 MG VIAL IV PUSH (20:40)
[2020-01-16] MEDS: SODIUM CHLORIDE 0.9% IV 1,000 ML 125 ML IV CONT (02:29)
[2020-01-16] MEDS: HYDROmorphone HCL INJ (*CRX) 1 MG/ML SYR 0.5 MG IV PUSH ×2 (02:30→06:28)
[2020-01-16] MEDS: ONDANSETRON INJ 4 MG/2 ML VIAL IV PUSH ×2 (02:33→06:28)
[2020-01-16 04:00] VITALS: BP 91/40; PULSE 77; RESP 20; TEMP 36.6; O2SAT 93
[2020-01-16 06:01] LABS: Basophils Percent Auto 0.7 % (0.2-1.2); Eosinophils Absolute Auto 0.3 K/mm3 (0-0.3); Eosinophils Percent Auto 5.3 % (0-4.4); Hematocrit 31.1 % (37.0-47.0); Hemoglobin 9.7 g/dL (12.0-15.0); Immature Granulocyte Absolute 0.03 K/mm3 (0.00-0.031); Immature Granulocyte Percent A 0.5 % (0-0.5); Lymphocytes Absolute Auto 1.26 K/mm3 (0.9-3.2); Lymphocytes Percent Auto 20.8 % (18.3-44.2); Mean Corpuscular HGB Conc 31.2 g/dl (32-36); Mean Corpuscular Volume 89.9 fl (80-100); Mean Platelet Volume 9.5 fl (7.4-10.4); Monocytes Absolute Auto 0.4 K/mm3 (0.1-0.6); Monocytes Percent Auto 6.1 % (2.6-8.5); Neutrophils Absolute Auto 4.1 K/mm3 (1.3-6.7); Neutrophils Percent Auto 66.6 % (45.5-73.1); Platelet Count Result 192 k/mm3 (150-375); Red Blood Count 3.46 M/mm3 (4.2-5.4); Red Cell Distribution Width 15.2 % (11.5-14.5); White Blood Count 6.1 K/mm3 (4.5-10.0)
[2020-01-16 06:13] LABS: Alanine Aminotransferase 13 U/L (4-35); Albumin Level 3.1 g/dL (3.5-5.1); Alkaline Phosphatase 60 U/L (38-126); Anion Gap 3 mmol/L (8-16); Aspartate Amino Transferase 27 U/L (14-36); Bilirubin,Total 0.5 mg/dL (0.2-1.3); Blood Urea Nitrogen 9 mg/dL (7-17); Calcium 8.2 mg/dL (8.4-10.2); Carbon Dioxide 28 mmol/L (22-30); Chloride 108 mmol/L (98-107); Estimated CRCL calculation 94 ml/min; Estimated Glomerular Filt Rate > 60; Glucose 88 mg/dL (65-105); Lipase 107 U/L (23-300); Potassium 3.9 mmol/L (3.4-5.0); Sodium 139 mmol/L (137-145)
[2020-01-16] MEDS: METOCLOPRAMIDE HCL INJ 10 MG/2 ML VIAL 5 MG IV PUSH (06:27)
[2020-01-16] MEDS: DICYCLOMINE HCL 10 MG CAPSULE 20 MG PO ×2 (08:21→12:57)
[2020-01-16] MEDS: ENOXAPARIN 40 MG/0.4 ML SYRINGE SUB-Q (08:21)
[2020-01-16] MEDS: PANTOPRAZOLE SODIUM IV 40 MG VIAL IV PUSH (08:21)
[2020-01-16 09:00] VITALS: BP 120/62
--- NOTE | 2020-01-16 10:14 | PM.PNGS ---
Progress Note: A&P Assessment and Plan (1) Epigastric abdominal pain: Onset Date: ~01/14/20 Code(s): R10.13 - Epigastric pain Status: Acute Assessment and Plan: This seems to be improving with the use of Reglan, Bentyl, and Protonix. Have discussed with her hospitalist's, Reina, and we will plan to switch all these to oral and see if we can get the patient discharged. She would then follow up with her usual [facility] doctor [facility] and discuss further steps. Since she has a chronic fistula rlated to Crohn's, I think she should consider having a consultation at [facility] with a GI surgeon who might be able to do both laparoscopic cholecystectomy and a resection of the area of fistulization at her ileal-colic anastomotic site in the future if necessary. For now I would suggest sending her home on Actigall with these other medications and then be seen by her usual GI MD over there. for now continue a low-fat diet upon discharge to avoid problems with her gallbladder sludge. Home with a disc containing the CT scan and ultrasound images to be shared with her nursing care partner at [facility]. (2) Gallbladder sludge: Onset Date: ~01/15/20 Code(s): K82.8 - Other specified diseases of gallbladder Status: Acute Assessment and Plan: Start Actigall upon discharge and continue with permission from her GI doctor at [facility] then consider consultation with the GI physician at [facility] regarding whether not combined surgery for the gallbladder and ileocolic inflammation is reasonable. (3) Bipolar 1 disorder: Onset Date: Unknown Code(s): F31.9 - Bipolar disorder, unspecified Status: Chronic (4) Crohn's disease: Onset Date: ~2007 Qualifiers: Gastrointestinal tract location: small and large intestine Digestive disease complication type: with fistula Qualified Code(s): K50.813 - Crohn's disease of both small and large intestine with fistula Code(s): K50.90 - Crohn's disease, unspecified, without complications Status: Chronic Assessment and Plan: continue her usual biologic on schedule for this. Subjective Subjective Date/Time Seen: 01/16/20 09:14 Patient states she is having no abdominal pain right now. She was lying in bed when I entered the room. She did take some IV pain medicine earlier this morning because she could not tell whether she was going to have pain or not. She has had breakfast now with a full liquid breakfast tolerated that well. She has not yet had a bowel movement today but did have 1 yesterday. She is feeling significantly better than when she came to the ER. Review of Systems Constitutional: Constitutional: Reports no additional constitutional complaints ENT: Reports other (Mucous Membranes moist.) Cardiovascular: Cardiovascular: Denies dyspnea Respiratory: Respiratory: Denies pain on inspiration and Denies dyspnea Gastrointestinal: Gastrointestinal: Denies abdominal pain, Denies bloating and Denies vomiting Musculoskeletal: Musculoskeletal: Reports other (No calf swelling or edema) Integumentary/Breasts: Skin/Breast: Reports system reviewed and no additional complaints, except as docu Exam Const: General: cooperative, no acute distress, alert and awake Orientation/consciousness: patient oriented x3 HENMT: Mouth: Yes moist mucous membranes Neck: Neck: normal visual inspection Chest: Chest palpation & inspection: normal inspection of the chest Resp: Effort & Inspection: normal respiratory effort Auscultation: clear to auscultation bilaterally Cardio: Jugular venous distension: no JVD Rate: regular rate Rhythm: regular rhythm GI: Inspection: scar ( Supraumbilical without hernia) GI Palp: No abdominal tenderness, Yes Soft to palpation and No Tenderness to palpation present (GI) Rectal Exam: deferred Neuro: General: patient oriented x3 and moves all extremities Speech: normal speech Extrem: General: normal exam except as n
[2020-01-16] MEDS: ACETAMINOPHEN 325 MG TABLET 650 MG PO (12:56)
[2020-01-16] MEDS: METOCLOPRAMIDE HCL 5 MG TABLET PO (12:56)
[2020-01-16 14:29] VITALS: BP 126/68; PULSE 63; RESP 14; TEMP 36.8; O2SAT 97
--- NOTE | 2020-01-16 15:57 | PM.DS ---
DS: Admitting Diagnosis Admitting Diagnosis Admitting Diagnosis: RUQ abd pain, intractable nausea and vomiting DS: Discharge Diagnosis Discharge Diagnosis (1) Right upper quadrant abdominal pain: Code(s): R10.11 - Right upper quadrant pain Status: Acute Assessment and Plan: Discharge Summary (Date of service 01/16/20): Mrs. Laboy is a 54 y.o. female with PMH significant Chron's disease, bipolar disorder, anxiety, and depression who presented to the emergency department for the evaluation of nausea, vomiting, Initial workup in the emergency department included CT abd/pelvis which showed gallbladder distention, which may secondary to fasting or acute cholecystitis and chronic fistula between the terminal ileum and the ileocolic anastomosis, consistent with Crohn disease. She was admitted to the hospitalist service under observation and general surgery was consulted. She is established with RIVAS Mccall at [facility]. She had a hx of bowel resection at [facility] due to her Chron's disease. She had her stelara injection yesterday per GI 01/12. RUQ US was ordered and showed gallbladder distention and sludge without acute findings of cholecystitis. Hepatic steatosis was present. Bentyl and reglan were initiated and her symptoms resolved. Dr. Martin recommended she follow-up with her GI team at [facility] outpatient for consideration of laparoscopic cholecystectomy and resection of her fistula at the ileo-colic anastomosis. She was discharged on actigall. I did call her GI office to ensure they were aware of this as well. She felt much better and was tolerating her diet. She requested to go home. She was discharged on reglan, bentyl, and actigall per GI and general surgery recommendations. I advised close follow-up with Dr. Roy's office within 1 week. She verbalized understanding. She was discharged in stable condition on the afternoon of 01/16/20. (2) Intractable nausea and vomiting: Code(s): R11.2 - Nausea with vomiting, unspecified Status: Acute Assessment and Plan: Resolved. She was given zofran as needed and reglan was initiated per GI and general surgery recommendations. Her diet was advanced and she tolerated this well. She did not have any further nausea or vomiting. (3) Gallbladder sludge: Onset Date: ~01/15/20 Code(s): K82.8 - Other specified diseases of gallbladder Status: Acute Assessment and Plan: Visualized on RUQ US. General surgery was consulted and recommended supportive care. Dr. Martin recommended she follow-up with her GI team at [facility] outpatient for consideration of laparoscopic cholecystectomy and resection of her fistula at the ileo-colic anastomosis. She was discharged on actigall. I did call her GI office to ensure they were aware of this as well. (4) Crohn's disease: Onset Date: ~2007 Qualifiers: Gastrointestinal tract location: small and large intestine Digestive disease complication type: with fistula Qualified Code(s): K50.813 - Crohn's disease of both small and large intestine with fistula Code(s): K50.90 - Crohn's disease, unspecified, without complications Status: Chronic Assessment and Plan: She follows with Dr. Kaela Roy, GI at [facility]. Her imaging findings did not suggest acute Chron's flare. The ER provider spoke with [facility] GI who did not recommend steroids as this does not appear to be Chron's flare. She has a chronic fistula, stable and unchanged from prior imaging. She received her stelara injection 01/12. [facility] GI recently recommended reglan during her last follow-up as gastroparesis was felt to be contributing to her sx but she had not filled the prescription yet. GI recommendations were continued. (5) Insomnia: Code(s): G47.00 - Insomnia, unspecified Status: Chronic Assessment and Plan: Prior to admission ambien was continued. (6) Bipolar 1 disorder: Onset Date: Unknown
[2020-01-16 19:12] LABS: Iron 64 ug/dL (37-170)
[2020-01-16 19:21] LABS: Percent Iron Saturation 14 % (20-50)
[2020-01-16 20:19] LABS: Folic Acid 7.9 ng/mL (2.76->20)
== END 2020-01-16 16:26 | disposition home or self-care (01) ==
LOC: ANHED 01-15 01:00 → ANH2MED 01-15 01:13
PROVIDERS: Physician Assistant; Admitting Provider Student in an Organized Health Care Education/Training Program; Emergency Provider Emergency Medicine; PCP Family Medicine; Visit Provider Family Medicine
DX: R10.13 Epigastric pain (principal); R10.11 Right upper quadrant pain; K50.813 Crohn's disease of both small and large intestine with fistula; R11.2 Nausea with vomiting, unspecified; F41.9 Anxiety disorder, unspecified; F31.9 Bipolar disorder, unspecified; M79.7 Fibromyalgia; K85.90 Acute pancreatitis without necrosis or infection, unspecified; K44.9 Diaphragmatic hernia without obstruction or gangrene; R59.0 Localized enlarged lymph nodes; K82.8 Other specified diseases of gallbladder; K29.70 Gastritis, unspecified, without bleeding; F17.210 Nicotine dependence, cigarettes, uncomplicated; K76.0 Fatty (change of) liver, not elsewhere classified; G47.00 Insomnia, unspecified; M75.82 Other shoulder lesions, left shoulder; Z90.49 Acquired absence of other specified parts of digestive tract
CPT/HCPCS: 36415; 74177; 76705; 80053; 81003; 82607; 82728; 82746; 83540; 83550; 83690; 84484; 85025; 85610; 85730; 86140; 93005; 96361; 96372; 96374; 96375; 96376; 99285; A9270; C9113; G0378; G0379; J0500; J1170; J1650; J2270; J2405; J2765; J7030; Q9967

== ENCOUNTER 2020-11-22 00:05 | Emergency (ER) | payer OTHER, SELFPAY ==
--- NOTE | ~2020-11-22 | XR_ITS ---
EXAMINATION: XR ankle RT min 3V EXAM DATE: 11/22/2020 00:36 INDICATION: Initial encounter following injury, with pain of the right ankle. TECHNIQUE: Right ankle frontal, lateral and oblique projections obtained and reviewed. Comparison is made to prior examination from 07/09/2013. FINDINGS: The right ankle mortise appears intact. There are no acute small inferior calcaneal spur. fractures or dislocations identified. There is no subcutaneous gas. The soft tissue is unremarkabl e. There are no radiopaque foreign bodies. IMPRESSION: No acute osseous findings. Reviewed, dictated and finalized at location A. IMPRESSION: No acute osseous findings.
[2020-11-22 00:11] VITALS: BP 121/81; PULSE 101; RESP 16; TEMP 36.3; O2SAT 96
--- NOTE | 2020-11-22 01:13 | ED.GENADULT ---
HPI - General Adult General Chief complaint: Extremity Injury, Lower Stated complaint: fell down steps, right foot pain Time Seen by Provider: 11/22/20 00:49 History of Present Illness HPI narrative: Patient is a 55-year-old female presents the emerge department chief complaint of right ankle and foot pain. Patient reports that her foot gave out on her recently and she fell today she had the same episode happened and she fell down several steps. Patient reports she has abrasions on her other extremities but reports that she has pain in her right ankle and the dorsum of the foot. The patient denies loss of consciousness denies head injury. Related Data Home Medications Medication Instructions Recorded Confirmed Stelara 260 mg IV ONCE 06/07/19 04/20/20 hydrocodone-acetaminophen 1 tablet PO Q6H PRN 06/07/19 04/20/20 zolpidem [Ambien] 10 mg PO HS PRN 06/07/19 04/20/20 Allergies Allergy/AdvReac Type Severity Reaction Status Date / Time folic acid Allergy Mild BROKE OUT Verified 11/22/20 00:27 WITH RASH pyridoxine Allergy Mild Rash Verified 11/22/20 00:27 codeine Allergy Unknown Rash Verified 11/22/20 00:27 Penicillins Allergy Unknown Rash Verified 11/22/20 00:27 famotidine [From Pepcid] Allergy Itching Verified 11/22/20 00:27 pineapple AdvReac Severe THROAT Verified 11/22/20 00:27 CLOSED UP CALCIUM COMBINATION NO.1 Allergy Mild BROKE OUT Uncoded 11/22/20 00:27 WITH RASH Review of Systems Review of Systems: A 10 system review of systems was completed on the patient and is negative except for what is stated in the HPI. Nursing and ancillary documentation was reviewed. [facility] Past Medical History Medical History Anxiety Arthritis Bipolar 1 disorder (Unknown) Bronchitis Crohn's disease (~2007) DDD (degenerative disc disease) Depression Diarrhea Fibromyalgia Nausea & vomiting Normal colonoscopy Pancreatitis Shingles Sleep disorder Stomach pain Stomach ulcer UTI (urinary tract infection) Weight gain Surgical History Surgical History H/O bilateral cataract extraction H/O colectomy H/O dilation and curettage H/O tubal ligation History of bowel resection Hx of appendectomy Family History Family History Mother Depression Suicide Father Gastric artery aneurysm Other Family history of arthritis Family history of mental disorder Hypertension Nerve disorder Social History Social History Tobacco type: cigarettes Alcohol intake: former Substance use: never Substance use type: does not use Gender identity (if verbalized by the patient): Female Spiritual care concerns: No Exam Narrative: GENERAL: Well-appearing, well-nourished, and in no acute distress. HEAD: Normocephalic, atraumatic. EYES: PERRLA and EOMI. ENT: Nares clear, no rhinorrhea or epistaxis. Mucous membranes moist. NECK: Supple. CHEST: Clear to auscultation. No respiratory distress. HEART: Regular rate and rhythm. No murmur heard. Normal peripheral pulses. ABDOMEN: Soft, nontender, nondistended, normal active bowel sounds. EXTREMITIES: Normal range of motion. No edema. There is tenderness to palpation in the right ankle and the anterior portion of the right ankle SKIN: Warm, dry, no rash. NEURO: No focal deficits. Alert and oriented x3. PSYCH: Normal mood and affect. Course Vital Signs Vital signs: Vital Signs Temperature 36.3 C L 11/22/20 00:11 Pulse Rate 101 H 11/22/20 00:11 Respiratory Rate 16 11/22/20 00:11 Blood Pressure 121/81 11/22/20 00:11 Pulse Oximetry 96 11/22/20 00:11 Temperature 36.3 C L 11/22/20 00:11 Pulse Rate 101 H 11/22/20 00:11 Respiratory Rate 16 11/22/20 00:11 Blood Pressure 121/81 11/22/20 00:11 Pulse
[2020-11-22 01:35] VITALS: BP 136/78; RESP 18; O2SAT 100
[2020-11-22] MEDS: HYDROcodone/acetaminophen (*CRX) 5-325 MG TABLET 1 TAB PO (01:35)
== END 2020-11-22 01:36 | disposition home or self-care (01) ==
LOC: ANHED 01:18
PROVIDERS: Emergency Provider Emergency Medicine; PCP Family Medicine
DX: S93.401A Sprain of unspecified ligament of right ankle, initial encounter (principal); M19.90 Unspecified osteoarthritis, unspecified site; M79.7 Fibromyalgia; Z87.891 Personal history of nicotine dependence; F41.9 Anxiety disorder, unspecified; F31.9 Bipolar disorder, unspecified; W10.9XXA Fall (on) (from) unspecified stairs and steps, initial encounter
CPT/HCPCS: 73610; 99283; A9270

== ENCOUNTER 2021-09-09 19:05 | Emergency (ER) | payer OTHER, SELFPAY ==
--- NOTE | ~2021-09-09 | XR_ITS ---
EXAMINATION: XR ankle LT min 3V DATE: 09/09/2021 19:58 INDICATION: Left ankle pain TECHNIQUE: Anteroposterior, lateral, mortise, and additional oblique view of the ankle were obtained. COMPARISON: None. FINDINGS: Bone alignment is normal. There is no fracture. There is mild soft tissue swelling of ankle . The ankle mortise is intact. No osteochondral lesion is identified. IMPRESSION: 1. Soft tissue swelling without acute osseous abnormality. Reviewed, dictated and finalized at location F.
[2021-09-09 19:24] VITALS: BP 132/76; PULSE 80; RESP 16; TEMP 36.8; O2SAT 99
--- NOTE | 2021-09-09 20:19 | ED.LOWEXIN ---
HPI - Extremity Injury (Lower) General Chief Complaint: Extremity Injury, Lower Stated Complaint: L ankle pain Time Seen by Provider: 09/09/21 19:28 Source: patient Mode of arrival: ambulatory Limitations: no limitations History of Present Illness HPI Narrative: 56-year-old with a history of fibromyalgia, bipolar disorder here with complaints of left ankle pain and swelling. Patient states that she was sitting on the porch chair when she got up from the chair she felt a pop in her left ankle she states that she is unable to bear weight she denies any other injuries MD complaint: ankle injury Onset (ago): minute(s) (45) Injury: Left: ankle Type of Injury: unknown Place: home Severity: moderate Relieving factors: nothing Exacerbating factors: weight bearing Context: other (Unsure) Associated symptoms: snap/pop sensation and swelling Related Data Home Medications Medication Instructions Recorded Confirmed hydrocodone 2.5 mg-acetaminophen 1 tablet PO Q6H PRN Pain, Moderate 06/07/19 01/05/21 325 mg tablet ustekinumab 130 mg/26 mL 260 mg IV ONCE 06/07/19 01/05/21 intravenous solution (Stelara) zolpidem 10 mg tablet (Ambien) 10 mg PO HS PRN Sleep 06/07/19 01/05/21 Allergies Allergy/AdvReac Type Severity Reaction Status Date / Time folic acid Allergy Mild BROKE OUT Verified 01/05/21 10:52 WITH RASH pyridoxine Allergy Mild Rash Verified 01/05/21 10:52 codeine Allergy Unknown Rash Verified 01/05/21 10:52 Penicillins Allergy Unknown Rash Verified 01/05/21 10:52 famotidine [From Pepcid] Allergy Itching Verified 01/05/21 10:52 pineapple AdvReac Severe THROAT Verified 01/05/21 10:52 CLOSED UP CALCIUM COMBINATION NO.1 Allergy Mild BROKE OUT Uncoded 01/05/21 10:52 WITH RASH Review of Systems Review of Systems: All systems reviewed & are unremarkable except as noted in HPI and below Constitutional: Constitutional: Reports no additional constitutional complaints Eyes: Eyes: Reports no additional eye complaints ENT: Reports system reviewed and no additional complaints, except as documented Cardiovascular: Cardiovascular: Reports no additional cardiovascular complaints Respiratory: Respiratory: Reports no additional respiratory complaints Musculoskeletal: Musculoskeletal: Reports as per HPI Neurologic: Reports system reviewed and no additional complaints, except as documented Psychiatric: Psychiatric: Reports no additional psychiatric complaints Endocrine: Endocrine: Reports no additional endocrine complaints PMFSH Past Medical History Medical History Anxiety Arthritis Bipolar 1 disorder (Unknown) Bronchitis Crohn's disease (~2007) DDD (degenerative disc disease) Depression Diarrhea Fibromyalgia Nausea & vomiting Normal colonoscopy Pancreatitis Right ankle sprain Shingles Sleep disorder Stomach pain Stomach ulcer UTI (urinary tract infection) Weight gain Surgical History Surgical History H/O bilateral cataract extraction H/O colectomy H/O dilation and curettage H/O tubal ligation History of bowel resection Hx of appendectomy Family History Family History Mother Depression Suicide Father Gastric artery aneurysm Other Family history of arthritis Family history of mental disorder Hypertension Nerve disorder Social History Social History Tobacco type: cigarettes Alcohol intake: former Substance use: never Substance use type: does not use Gender identity (if verbalized by the patient): Female Spiritual care concerns: No Exam Narrative: GENERAL: Well-appearing, well-nourished, and in no acute distress. HEAD: Normocephalic, atraumatic. EYES: PERRLA and EOMI. NECK: Supple. CHEST: Clear to auscultation. No respiratory distress. HEART: Regular
== END 2021-09-09 21:05 | disposition home or self-care (01) ==
PROVIDERS: Emergency Provider Family Medicine
DX: S93.402A Sprain of unspecified ligament of left ankle, initial encounter (principal); K50.90 Crohn's disease, unspecified, without complications; G47.9 Sleep disorder, unspecified; M79.7 Fibromyalgia; M19.90 Unspecified osteoarthritis, unspecified site; F41.9 Anxiety disorder, unspecified; F31.9 Bipolar disorder, unspecified; Z87.440 Personal history of urinary (tract) infections; Z98.42 Cataract extraction status, left eye; Z98.41 Cataract extraction status, right eye; Z90.49 Acquired absence of other specified parts of digestive tract; F17.200 Nicotine dependence, unspecified, uncomplicated; X50.9XXA Other and unspecified overexertion or strenuous movements or postures, initial encounter
CPT/HCPCS: 73610; 99283

== ENCOUNTER 2022-05-29 00:27 | Inpatient (IN) | payer OTHER, SELFPAY ==
[2022-05-29] VITALS (30 sets, daily range): BP systolic 109–167; BP diastolic 58–132; PULSE 74–141; RESP 12–24; TEMP 36.4–36.8; O2SAT 93–100; BMI 46.0
--- NOTE | ~2022-05-29 | XR_ITS ---
XR ankle RT min 3V 05/29/2022 03:41 Indication: Right ankle fracture post reduction Procedure: 2 views right ankle performed in the fiberglass cast Comparison: 05/29/2022 Findings: There is significantly improved alignment of trimalleolar fracture post reduction. Talar do me is unremarkable. There is degenerative calcaneal enthesophyte. Impression: 1: Significantly improved alignment of displaced trimalleolar fracture post reduction. Reviewed, dictated and finalized at location A. Impression: 1: Significantly improved alignment of displaced trimalleolar fracture post red uction.
--- NOTE | ~2022-05-29 | XR_ITS ---
XR ankle RT min 3V 05/29/2022 03:40 Indication: Right ankle pain and swelling Procedure: 2 views right ankle Comparison: Comparison to multiple prior studies sequentially, with oldest reviewed study dated 07/09. Findings: There is a displaced trimalleolar fracture with posterior-lateral displacement. There are d egenerative calcaneal enthesophytes. Talar dome is grossly normal. Impression: 1: Displaced trimalleolar fracture. Reviewed, dictated and finalized at location A. Impression: 1: Displaced trimalleolar fracture.
--- NOTE | ~2022-05-29 | XR_ITS ---
EXAMINATION: XR surgery orthopedic DATE: 05/30/2022 12:25 INDICATION: ORIF right ankle fracture TECHNIQUE: 4 fluoroscopic spot images of the right ankle were obtained during procedure performed by Dr. Ryan. Radiologist was not present for the imaging or procedure. The amount of fluoroscopy time used during this procedure was 0.7 minutes. COMPARISON: Right ankle radiographs dated 05/29/2022 FINDINGS: Interval open reduction and internal fixation of a trimalleolar fracture of the right ankle. This inc ludes a lateral plate and screw fixation of the lateral malleolar fracture, fixation of the medial ma lleolar fracture with a pair of cannulated lag screws. There is also a tightrope type syndesmotic fix ation with metallic buttons along the medial side of a pair of lucent tunnels extend across the dista l metaphyses of the tibia and fibula. The posterior malleolar fracture remains without fixation. Alig nment appears near-anatomic with a congruent ankle mortise joint spaces appear normal. Small amount o f enthesopathic ossification at the distal Achilles tendon. IMPRESSION: 1. Near-anatomic alignment post open reduction internal fixation of a right ankle trimalleolar fractu re. See procedure note for further detail. Reviewed, dictated and finalized at location A. IMPRESSION: 1. Near-anatomic alignment post open reduction internal fixation of a right ank le trimalleolar fracture. See procedure note for further detail.
[2022-05-29] MEDS: SODIUM CHLORIDE 0.9% IV 1,000 ML 999 ML (02:29)
--- NOTE | 2022-05-29 02:35 | ED.GENADULT ---
HPI - General Adult General Chief complaint: Extremity Injury, Lower <Frank Streeter PA-C - Last Filed: 05/29/22 04:38> Stated complaint: RIGHT ankle pain <RAIZA Jay Last Filed: 05/29/22 04:38> Time Seen by Provider: 05/29/22 02:01 <RAIZA Jay Last Filed: 05/29/22 04:38> Source: patient <RAIZA Jay Last Filed: 05/29/22 04:38> Mode of arrival: wheelchair <Frank Streeter PA-C - Last Filed: 05/29/22 04:38> Limitations: no limitations <RAIZA Jay Last Filed: 05/29/22 04:38> History of Present Illness HPI narrative: This is a 57-year-old female with PMH of Crohn's presents the ED with chief complaint of right ankle injury occurring just prior to arrival in the ED. Patient reports she has been drinking since about 1230 yesterday. Patient reports she got up from her chair and started to walk and her foot slipped and she went down. Reports pain, swelling, deformity to the ankle. Denies any further sites of pain or injury. Denies LOC. Denies alteration in sensation. She has been taking Stelara for Crohn's. <RAIZA Jay Last Filed: 05/29/22 04:38> Related Data Home medications: Home Medications Medication Instructions Recorded Confirmed ustekinumab 90 mg/mL subcutaneous See Rx Instructions .Route .COMPLEX 05/29/22 05/29/22 syringe (Stelara) <RAIZA Jay Last Filed: 05/29/22 04:38> Allergies/adverse reactions: Allergies Allergy/AdvReac Type Severity Reaction Status Date / Time folic acid Allergy Mild BROKE OUT Verified 05/29/22 06:30 WITH RASH pyridoxine Allergy Mild Rash Verified 05/29/22 06:30 codeine Allergy Unknown Rash Verified 05/29/22 06:30 Penicillins Allergy Unknown Rash Verified 05/29/22 06:30 famotidine [From Pepcid] Allergy Itching Verified 05/29/22 06:30 pineapple AdvReac Severe THROAT Verified 05/29/22 06:30 CLOSED UP CALCIUM COMBINATION NO.1 Allergy Mild BROKE OUT Uncoded 05/29/22 00:28 WITH RASH <RAIZA Jay Last Filed: 05/29/22 04:38> Review of Systems Review of Systems: CONSTITUTIONAL: Denies fever, chills, or sweats. EYES: Denies visual changes, redness, or discharge. ENT: Denies rhinorrhea, congestion, sore throat, or otalgia. CARDIOVASCULAR: Denies chest pain, palpitations, or edema. RESPIRATORY: Denies cough or dyspnea. GASTROINTESTINAL: Denies abdominal pain, nausea, vomiting, or diarrhea. GENITOURINARY: Denies dysuria or hematuria. SKIN: Denies rash or itching. MUSCULOSKELETAL: Endorses right ankle pain and swelling. Denies back pain, other joint pain, or myalgia. NEUROLOGIC: Denies headache, numbness, dizziness, or weakness. PSYCHIATRIC: Denies anxiety or depression. <RAIZA Jay Last Filed: 05/29/22 04:38> [facility] Past Medical History Medical History: Medical History Anxiety Arthritis Bipolar 1 disorder (Unknown) Bronchitis Crohn's disease (~2007) DDD (degenerative disc disease) Depression Diarrhea Fibromyalgia Nausea & vomiting Normal colonoscopy Pancreatitis Right ankle sprain Shingles Sleep disorder Stomach pain Stomach ulcer UTI (urinary tract infection) Weight gain <RAIZA Jay Last Filed: 05/29/22 04:38> Surgical History Surgical History: Surgical History H/O bilateral cataract extraction H/O colectomy H/O dilation and curettage H/O tubal ligation History of bowel resection Hx of appendectomy <RAIZA Jay Last Filed: 05/29/22 04:38> Family History Family History: Family History Mother Depression Suicide Nerve disorder Family history of mental disorder Bipolar disorder Father Gastric artery aneurysm Hypertension Sibling Hypertension <Frank Streeter PA-C - Last Filed: 03/19/23 04:38> Social History So
[2022-05-29] MEDS: fentaNYL CITRATE INJ (*CRX) 100 MCG/2 ML VIAL 50 MCG IV PUSH ×2 (02:43→04:35)
[2022-05-29] MEDS: ETOMIDATE 20 MG/10 ML AMPUL 17.1 MG IV PUSH (03:02)
[2022-05-29] MEDS: ETOMIDATE 40 MG/20 ML VIAL 10 MG IV PUSH (03:06)
[2022-05-29] MEDS: SODIUM CHLORIDE 0.9% IV 1,000 ML 999 ML IV CONT (03:41)
[2022-05-29] MEDS: MORPHINE SULFATE (*CRX) 4 MG/ML INJ IV PUSH ×3 (06:26→11:11)
--- NOTE | 2022-05-29 06:30 | ADMGEN ---
This patient, Melania Laboy, was admitted to Medical Room 251-01. Patient/family oriented to hospital policies and general routines including ID bracelet, bed and alarms, visiting hours, pain management, procedures, bathroom and other care routines, personal items, smoking policy, room service/diet, and visiting hours. Information on how to activate the Rapid Response Team has been discussed. Patient/Family are encouraged to report perceived risks to care and to ask questions if they do not understand what they are told or what they should do.
[2022-05-29 06:31] LABS: Basophils Absolute Auto 0.1 K/mm3 (0.0-0.1); Basophils Percent Auto 0.5 % (0.2-1.2); Eosinophils Absolute Auto 0.1 K/mm3 (0-0.3); Eosinophils Percent Auto 0.9 % (0-4.4); Hematocrit 36.3 % (37.0-47.0); Hemoglobin 11.9 g/dL (12.0-15.0); Immature Granulocyte Absolute 0.05 K/mm3 (0.00-0.031); Immature Granulocyte Percent A 0.4 % (0-0.5); Lymphocytes Absolute Auto 2.16 K/mm3 (0.9-3.2); Lymphocytes Percent Auto 15.9 % (18.3-44.2); Mean Corpuscular HGB Conc 32.8 g/dl (32-36); Mean Corpuscular Hemoglobin 29.7 pg (26-34); Mean Corpuscular Volume 90.5 fl (80-100); Mean Platelet Volume 9.1 fl (7.4-10.4); Monocytes Percent Auto 7.6 % (2.6-8.5); Neutrophils Absolute Auto 10.2 K/mm3 (1.3-6.7); Neutrophils Percent Auto 74.7 % (45.5-73.1); Platelet Count Result 328 k/mm3 (150-375); Red Blood Count 4.01 M/mm3 (4.2-5.4); Red Cell Distribution Width 13.8 % (11.5-14.5); White Blood Count 13.6 K/mm3 (4.5-10.0)
[2022-05-29 06:40] LABS: Ethanol 98 mg/dL (<10)
[2022-05-29 06:42] LABS: Alanine Aminotransferase 22 U/L (6-35); Albumin Level 4.1 g/dL (3.5-5.1); Alkaline Phosphatase 67 U/L (38-126); Anion Gap 10 mmol/L (8-16); Aspartate Amino Transferase 41 U/L (14-36); Bilirubin,Total 0.7 mg/dL (0.2-1.3); Blood Urea Nitrogen 6 mg/dL (7-17); Calcium 7.8 mg/dL (8.4-10.2); Carbon Dioxide 19 mmol/L (22-30); Chloride 111 mmol/L (98-107); Estimated CRCL calculation 130 ml/min; Estimated Glomerular Filt Rate > 60; Glucose 123 mg/dL (65-110); INR 1.2; Potassium 4.1 mmol/L (3.4-5.0); Prothrombin Time 15.1 Seconds (11.1-14.7); Sodium 140 mmol/L (137-145)
[2022-05-29 06:43] LABS: Partial Thromboplastin Time 32.7 SECONDS (22.3-36.8)
[2022-05-29] MEDS: SODIUM CHLORIDE 0.9% IV 1,000 ML 100 ML IV CONT (08:23)
--- NOTE | 2022-05-29 12:32 | PM.IMHP ---
H&P: HPI History of Present Illness Date/Time: 05/29/22 12:32 Chief Complaint: Right ankle fracture Narrative: This is a 57-year-old female with a past medical history significant for Crohn's disease and bipolar disorder presented to the ED on 05/29/2022 Which is complaint right ankle pain. Patient was had gotten up out of a chair and a couple steps when her ankle twisted. She states that she was not using any stairs or tripped over anything. She has had multiple ankle sprains and attributes this to her Crohn's disease medication, Stelara. Patient states that she did have 2 alcoholic beverages before this happened and when asking her about drinking she states that she drinks maybe once a year. Patient states that after she twisted her ankle it had immediately swelled and bruised. Patient unable to walk after this happen. When patient fell she denies hitting her head or losing consciousness. X-rays of the right ankle revealed distal tibia -fibular fracture with significant dorsal displacement. Patient was given fentanyl for pain control followed by procedural sedation and the ankle was reduced in the ED. repeat x-ray showed successful reduction. Orthopedics consulted. Patient denies other muscular/ joint pain. Patient does have chronic abdominal pain due to Crohn's disease. patient's only complaint is right ankle pain and she is receiving analgesics for this. Review of Systems Review of Systems: All systems reviewed & are unremarkable except as noted in HPI and below PMFSH Past Medical History Medical History Anxiety Arthritis Bipolar 1 disorder (Unknown) Bronchitis Crohn's disease (~2007) DDD (degenerative disc disease) Depression Diarrhea Fibromyalgia Nausea & vomiting Normal colonoscopy Pancreatitis Right ankle sprain Shingles Sleep disorder Stomach pain Stomach ulcer UTI (urinary tract infection) Weight gain Surgical History Surgical History H/O bilateral cataract extraction H/O colectomy H/O dilation and curettage H/O tubal ligation History of bowel resection Hx of appendectomy Family History Family History (Updated 05/29/22 @ 06:41 by Louis Gutierres RN) Mother Depression Suicide Nerve disorder Family history of mental disorder Bipolar disorder Father Gastric artery aneurysm Hypertension Sibling Hypertension Social History Social History (Updated 05/29/22 @ 12:43 by Julianne Richardson PA-C) Social History: Patient currently lives with her boyfriend, daughter and grand kid at home. Patient states that she smokes a half a pack a day and has smoked since she has been 13 years old. She really uses alcohol and denies drug use. Smoking packs per day: 1 Smoking cigarettes per day: 20.0 Years smoked: 46 Smoking pack-years: 46.00 Smoking status: Current every day smoker Tobacco type: cigarettes Alcohol intake: current Drinks per week: 1 Substance use: never Substance use type: does not use Lack of Transportation: No Lack of Food: Never True Current Housing: I Have Housing Concerned About Future Housing: No Difficulty Paying Gas/Electric Bills: No Difficulty Paying for Meds: No Currently Unemployed: No Education: High School Diploma/GED Difficulty w/ Childcare or Family Care: No Gender identity (if verbalized by the patient): Female Spiritual care concerns: No Meds Home Medications and Allergies Home Medications Medication Instructions Recorded Confirmed Type ustekinumab 90 mg/mL subcutaneous See Rx Instructions .Route .COMPLEX 05/29/22 05/29/22 History syringe (Stelara) Allergies Allergy/AdvReac Type Severity Reaction Status Date / Time folic acid Allergy Mild BROKE OUT Verified 05/29/22 06:30 WITH RASH pyridoxine Allergy Mild Rash Verified 05/29/22 06:30 codeine Allergy Unknown Rash Verifie
--- NOTE | 2022-05-29 14:22 | PCPTNOTE ---
has orders, but no weight bearing restrictions or note from ortho doc. Will wait to see tomorrow
[2022-05-29] MEDS: ONDANSETRON INJ 4 MG/2 ML VIAL IV PUSH (15:30)
[2022-05-29] MEDS: MORPHINE SULFATE (*CRX) 2 MG/ML INJ IV PUSH ×2 (15:50→19:59)
[2022-05-30] VITALS (15 sets, daily range): BP systolic 102–131; BP diastolic 48–84; PULSE 61–76; RESP 12–20; TEMP 35.6–36.9; O2SAT 92–100
[2022-05-30] MEDS: MORPHINE SULFATE (*CRX) 2 MG/ML INJ IV PUSH ×5 (00:01→21:49)
--- NOTE | 2022-05-30 07:07 | PCOTNOTE ---
Will complete OT evaluation following ortho consult/recommendations and WB status.
--- NOTE | 2022-05-30 08:02 | PCPTNOTE ---
Will complete PT evaluation following ortho consult/recommendations and WB status.
--- NOTE | 2022-05-30 08:52 | PM.CNOR ---
Assessment and Plan Assessment and plan (1) Closed trimalleolar fracture of ankle: Qualifiers: Encounter type: initial encounter Laterality: right Qualified Code(s): S82.851A - Displaced trimalleolar fracture of right lower leg, initial encounter for closed fracture <Coleen Rivero, PLACEMENT COORDINATOR - Last Filed: 05/30/22 09:06> Code(s): S82.853A - Displaced trimalleolar fracture of unspecified lower leg, initial encounter for closed fracture <Coleen Rivero, PLACEMENT COORDINATOR - Last Filed: 05/30/22 09:06> Status: Acute <Coleen Rivero, PLACEMENT COORDINATOR - Last Filed: 05/30/22 09:06> Assessment and Plan: History, exam and radiographs reviewed with the patient. Radiographs of the right ankle reveal a post reduction trimalleolar ankle fracture. The fracture type and injury as well as radiographs discussed with the patient. Operative and nonoperative treatment options reviewed. The patient elects for operative treatment. Discussed Closed Reduction vs. ORIF of the Right Ankle Risks of surgery including but not limited to neurovascular damage, wound complications, blood clot, pulmonary embolus, stroke, myocardial infarction, anesthetic risks up to and including were reviewed. Continued pain and possible dysfunction were explained. No guarantees were offered. Definitive surgical intervention will be determined based on the level of swelling at the time of surgery. Patient may require return to the OR in 1 weeks time if the extent of swelling poses risk for poor incisional wound healing. The patient understands and wishes to proceed. Plan: Closed Reduction Vs. ORIF of the Right Ankle Fracture NPO at this time pending surgery scheduling. Pain control. Ice. Elevate. Maintain Splint. Keep Dry. Hold anticoagulation. <Coleen Rivero, PLACEMENT COORDINATOR - Last Filed: 05/30/22 09:06> (2) Bipolar 1 disorder: Onset Date: Unknown <OSCAR WeissP - Last Filed: 05/30/22 09:06> Code(s): F31.9 - Bipolar disorder, unspecified <Coleen Rivero, PLACEMENT COORDINATOR - Last Filed: 05/30/22 09:06> Status: Chronic <Coleen Rivero, PLACEMENT COORDINATOR - Last Filed: 05/30/22 09:06> (3) Crohn's disease: Onset Date: ~2007 <Coleen DeeMoon JordonDAMON sidhu - Last Filed: 05/30/22 09:06> Qualifiers: Digestive disease complication type: with fistula Gastrointestinal tract location: small and large intestine Qualified Code(s): K50.813 - Crohn's disease of both small and large intestine with fistula <Coleen DeeDAMON Gilbert - Last Filed: 05/30/22 09:06> Code(s): K50.90 - Crohn's disease, unspecified, without complications <Coleen DeeMoon JordonDAMON sidhu - Last Filed: 05/30/22 09:06> Status: Chronic <Coleen DeeDAMON Gilbert - Last Filed: 05/30/22 09:06> Assessment and Plan: Patient seen and examined. Chart reviewed. agree with orthopedic consultation. Radiographs reviewed with patient. Unstable right ankle trimalleolar fracture dislocation. Operative and non operative treatment options including risks, benefits and alternatives discussed in detail. Patient desires operative treatment. Plan for open reduction internal fixation of right ankle fracture versus closed reduction and splint if soft tissue does not allow operative treatment at this time. <Romie Ryan MD - Last Filed: 05/30/22 10:37> History of Present Illness HPI Consult date: 05/30/22 <DAMON Weiss - Last Filed: 05/30/22 09:06> 05/30/22 <Romie Ryan MD - Last Filed: 05/30/22 10:37> Chief complaint: trimalleolar fracture <ColeenDAMON Holland - Last Filed: 05/30/22 09:06> Narrative: 57-year-old female admitted after a fall which she reports occurred at a bar where she was playing pool. Patient states she went to stand up out of a chair and take a couple of steps when her right ankle gave way and she fell. Patient is known to the orthopedic service for an ankle sprain of the ATFL in December of 2020. She progressed well at
--- NOTE | 2022-05-30 09:32 | PM.IMPN ---
Progress Note: A&P Assessment and Plan (1) Closed trimalleolar fracture of ankle: Qualifiers: Encounter type: initial encounter Laterality: right Qualified Code(s): S82.851A - Displaced trimalleolar fracture of right lower leg, initial encounter for closed fracture Code(s): S82.853A - Displaced trimalleolar fracture of unspecified lower leg, initial encounter for closed fracture Status: Acute Assessment and Plan: x-ray of right ankle revealed distal to be filled the fracture with significant dorsal displacement. Ankle was reduced in the ED and repeat x-ray with successful reduction. Patient's right ankle splinted Orthopedics consulted and appreciate recommendations PT consulted Analgesics as needed, ice and elevate Patient elected for surgical intervention is planned to have ORIF right ankle fracture on 05/30/2022 (2) Crohn's disease: Onset Date: ~2007 Qualifiers: Digestive disease complication type: with fistula Gastrointestinal tract location: small and large intestine Qualified Code(s): K50.813 - Crohn's disease of both small and large intestine with fistula Code(s): K50.90 - Crohn's disease, unspecified, without complications Status: Chronic Assessment and Plan: Patient taking Stelara. Subjective Date/time seen: 05/30/22 09:32 Interval history: Patient lying in bed with at bedside. Patient consented to discussing medical treatment in front of the . Patient with minimal complaints other than right ankle pain. patient scheduled for surgery today. Review of Systems Review of Systems: All systems reviewed & are unremarkable except as noted in HPI and below Exam Narrative: GENERAL: Comfortable, no acute distress HENMT: moist mucous membranes EYES: EOM intact b/l RESPIRATORY: clear to auscultation CARDIO: RRR GI: Tender, soft, bowel sounds present SKIN: no rashes EXTREMITIES: Splint over the right ankle present Objective Data Vital Signs Vital Signs: Vital Signs - 24 hr 05/29/22 14:00 05/29/22 19:54 05/30/22 04:57 Temperature 98.1 F 97.8 F 98.2 F Pulse Rate 80 74 70 Respiratory Rate 20 16 16 Blood Pressure 143/78 H 121/58 L 128/58 L Pulse Oximetry 93 96 96 Intake/Output Intake/Output: Intake & Output 05/27/22 05/28/22 05/29/22 05/30/22 23:59 23:59 23:59 23:59 Intake Total 2890 400 Output Total 200 650 Balance 2690 -250 Meds/Results Medications: Active Medications Generic Name Dose Route Start Last Admin Trade Name Freq PRN Reason Stop Dose Admin Hydrocodone Bitart/Acetaminophen 1 tab 05/29/22 12:47 Hydrocodone/Acetaminophen (*Crx) 5-325 Mg Tablet PO Q6H PRN Pain Rated 4-6 Docusate Sodium 100 mg 05/29/22 12:48 Docusate Sodium 100 Mg Capsule PO Q12H PRN Constipation Acetaminophen 1,000 mg in 100 mls @ 400 mls/hr 05/29/22 18:00 05/30/22 05:47 Ofirmev 1,000 Mg Ivpb IVPB 05/30/22 17:59 Infused Q6HR [facility] Infusion Morphine Sulfate 2 mg 05/29/22 12:47 05/30/22 08:29 Morphine Sulfate (*Crx) 2 Mg/Ml Inj IV PUSH 2 mg Q4H PRN Administration Pain Rated 7-10 Ondansetron HCl 4 mg 05/29/22 04:28 05/29/22 15:30 Ondansetron Inj 4 Mg/2 Ml Vial IV PUSH 4 mg Q4H PRN Administration Nausea Polyethylene Glycol 17 gm 05/30/22 09:00 05/30/22 08:38 Polyethylene Glycol 3350 17 Gm Powd.Pack PO Not Given [facility] Radiology Results: ITS Impressions Ankle X-Ray 05/29/22 07:53 Impression: 1: Displaced trimalleolar fracture.
--- NOTE | 2022-05-30 09:54 | PCPTNOTE ---
Pt to have an Ortho surgery. Therapy to see pt post-op when weight bearing status is given. Will follow.
--- NOTE | 2022-05-30 10:37 | WPDHPUPDATE1 ---
History and Physical Update Update Date/Time: 05/30/22 10:37 History and Physical has been reviewed, including an updated exam of the patient. There are NO changes in the patient's condition. Risks, benefits, and alternatives have been discussed and questions answered. Patient agrees to proceed with procedure.
--- NOTE | 2022-05-30 10:48 | WPDANESEPPF ---
Anes - Initial Pre Proc Eval Procedure: Operation Date: 05/30/22 10:00 Proposed Procedures p Closed Reduction, Possible Open Reduction Internal Fixation Right Ankle Fracture - Romie Ryan MD Date/Time: 05/30/22 10:48 Surgeon: Jammie Jon DO Pre Op Diagnosis: trimalleolar fracture Patient Data Age: 57 Gender: F Height: 1.63 m Weight: 121.6 kg Last Vital Signs Temp 36.8 C 05/30/22 04:57 Pulse 70 05/30/22 04:57 Resp 16 05/30/22 04:57 BP 128/58 L 05/30/22 04:57 Pulse Ox 96 05/30/22 04:57 O2 Del Method Room Air 05/30/22 08:00 O2 Flow Rate 2 05/29/22 03:45 Allergies Allergy/AdvReac Type Severity Reaction Status Date / Time folic acid Allergy Mild BROKE OUT Verified 05/29/22 06:30 WITH RASH pyridoxine Allergy Mild Rash Verified 05/29/22 06:30 codeine Allergy Unknown Rash Verified 05/29/22 06:30 Penicillins Allergy Unknown Rash Verified 05/29/22 06:30 famotidine [From Pepcid] Allergy Itching Verified 05/29/22 06:30 pineapple AdvReac Severe THROAT Verified 05/29/22 06:30 CLOSED UP CALCIUM COMBINATION NO.1 Allergy Mild BROKE OUT Uncoded 05/29/22 00:28 WITH RASH Home Medications Medication Instructions Recorded Confirmed Type ustekinumab 90 mg/mL subcutaneous See Rx Instructions .Route .COMPLEX 05/29/22 05/29/22 History syringe (Stelara) Patient hx anesthesia problems: none Family hx anesthesia problems: none Results Review: All pre-operative results and documents have been reviewed as part of the pre-operative evaluation. [facility] Past Medical History Medical History Anxiety Arthritis Bipolar 1 disorder (Unknown) Bronchitis Crohn's disease (~2007) DDD (degenerative disc disease) Depression Diarrhea Fibromyalgia Nausea & vomiting Normal colonoscopy Pancreatitis Right ankle sprain Shingles Sleep disorder Stomach pain Stomach ulcer UTI (urinary tract infection) Weight gain Surgical History Surgical History H/O bilateral cataract extraction H/O colectomy H/O dilation and curettage H/O tubal ligation History of bowel resection Hx of appendectomy Family History Family History Mother Depression Suicide Nerve disorder Family history of mental disorder Bipolar disorder Father Gastric artery aneurysm Hypertension Sibling Hypertension Social History Social History Social History: Patient currently lives with her boyfriend, daughter and grand kid at home. Patient states that she smokes a half a pack a day and has smoked since she has been 13 years old. She reports rarely using alcohol but when she does drink she drinks [employer] [place] and orange juice. She denies drug use. Smoking packs per day: 1 Smoking cigarettes per day: 20.0 Years smoked: 46 Smoking pack-years: 46.00 Smoking status: Current every day smoker Tobacco type: cigarettes Alcohol intake: current Drinks per week: 1 Substance use: never Substance use type: does not use Lack of Transportation: No Lack of Food: Never True Current Housing: I Have Housing Concerned About Future Housing: No Difficulty Paying Gas/Electric Bills: No Difficulty Paying for Meds: No Currently Unemployed: No Education: High School Diploma/GED Difficulty w/ Childcare or Family Care: No Gender identity (if verbalized by the patient): Female Spiritual care concerns: No Anes - Eval Final PreProcedure Day of Procedure 05/30/22 10:48 Patient weight: morbidly obese Heart: regular rate and rhythm Lungs: clear to auscultation Airway: Mallampati scale class II and other (dentures) Neurological: alert and oriented Last oral intake: >/= 8 hours Emergent: no Anesthetic plan: proceed Anesthesia type and monitoring: general ETT and standard mo
[2022-05-30] MEDS: LACTATED RINGERS 1,000 ML 30 ML IV CONT (10:58)
[2022-05-30] MEDS: ceFAZolin 3 GM/D5W 100 ML 100 ML IVPB (11:04)
[2022-05-30] MEDS: KETOROLAC 15 MG/ML VIAL (*BKC) IV PUSH (11:04)
[2022-05-30] MEDS: ACETAMINOPHEN 500 MG TABLET 1000 MG PO (11:04)
[2022-05-30] MEDS: BUPIVACAINE/EPINEPHRINE 0.25% 50 ML VIAL INFILTRATE (12:30)
--- NOTE | 2022-05-30 13:05 | W.PM.PROC2 ---
Procedure Note - Detailed Date of Procedure 05/30/22 Pre-op Diagnosis trimalleolar fracture Post-op Diagnosis Same Procedure Performed Open reduction internal fixation right trimalleolar ankle fracture with with fixation of medial and lateral malleolus. Surgeon Romie Ryan MD Program Checker 1St assistant drafter Anesthesia General Indications 57-year-old woman who fell and sustained right ankle fracture with dislocation. Presents now for operative stabilization. Description of Procedure After informed consent, the operative extremity was marked in the preoperative holding area. Patient received intravenous antibiotics. Patient was then taken to the operating room and underwent general anesthesia by the anesthesia team. Positioned supine on the operating room table with a soft bump under the ipsilateral hip. A time-out was performed confirming the patient, site of the surgery, operative plan. right Lower extremity then prepped and draped in the usual sterile surgical fashion using ChloraPrep skin solution. Foot and ankle exsanguinated and a thigh tourniquet inflated to 250 mmHg. Longitudinal incision made over the lateral ankle distal fibula with a 15 blade knife. Hemostasis controlled with electrocautery. Full-thickness soft tissue flaps developed and the fascia was incised in line with the skin incision. Fracture identified and cleared with a dental pick, irrigation and rongeur. Fracture reduced and held with bone-holding clamp. Image intensification confirmed reduction of the fracture and the ankle mortise. Fixation achieved with Neutralization with a lateral plate with unicortical screws distal to fracture and bicortical screws proximal to the fracture. Good alignment and stability of the fracture noted. Image intensification used to confirm reduction of the fracture and placement of the hardware. Medial side then addressed. Longitudinal incision made with a 15 blade knife over the medial malleolus fracture. Hemostasis controlled with electrocautery. Fascia incised in line with skin incision. Periosteum cleared from the medial malleolus fracture. Medial side of the joint inspected and noted to have mild amount of trauma to the chondral surface. Thorough irrigation of the ankle joint and suctioned out. Fracture reduced and provisionally pinned. Fixation achieved with 4.0 mm partially threaded cancellous screws x2 placed in cannulated screw fashion. Image intensification confirmed reduction of the fracture and placement of the hardware. Stress of the ankle performed with instability of the ankle mortise and syndesmosis noted. Posterior malleolus noted to be reduced and stable. syndesmosis fixation then achieved with the Arthrex tight rope assistant drafter. Guide through the lateral plate across the syndesmosis into the tibia verified with image intensification. This was then drilled. Tight rope past and tight laterally. 2 of these systems utilized through the 2 open holes in the plate. Final image intensification show good alignment and stability of the ankle mortise And syndesmosis. Wounds thoroughly irrigated with antibiotic solution. Fascia repaired with 00 Vicryl interrupted suture. Subcutaneous tissue repaired with 000 Monocryl interrupted suture and Skin approximated with 3-0 nylon interrupted suture. Sterile dressings applied followed by bulky dressing and splint. Patient awoken from anesthesia, extubated and taken to the recovery room in stable condition. All sponge, needle and instrument counts correct at the end of the case. Palpable dorsalis pedis pulse noted prior to dressing. Implants Arthrex distal fibular plate with 2.7 mm locking screws distally, 3.5 and 4.0 mm screws proximally. Syndesmosis tightrope x2. Medial 4.0 mm cannulated screw x2 Estimated Blood Loss 20 Tourniquet Time 4 Urine Output 650 Drains No Packing No Pathology None sent Complications None Condition Stable Disposition PACU [facility] Surgery - Charge
[2022-05-30] MEDS: fentaNYL CITRATE INJ (*CRX) 100 MCG/2 ML VIAL 25 MCG IV PUSH (13:47)
[2022-05-30] MEDS: SENNA/DOCUSATE SODIUM TABLET 2 TAB PO (17:13)
[2022-05-30] MEDS: ceFAZolin 2 GM/D5W 50 ML 2 GM/50 ML BAG IVPB (18:16)
[2022-05-30] MEDS: diazePAM (*CRX) 5 MG TABLET PO (20:04)
[2022-05-31] VITALS (8 sets, daily range): BP systolic 100–136; BP diastolic 49–76; PULSE 61–69; RESP 19–20; TEMP 35.6–35.8; O2SAT 96–100
[2022-05-31] MEDS: MORPHINE SULFATE (*CRX) 2 MG/ML INJ IV PUSH ×4 (02:02→18:57)
[2022-05-31] MEDS: ceFAZolin 2 GM/D5W 50 ML 2 GM/50 ML BAG IVPB ×2 (02:02→10:38)
[2022-05-31 05:38] LABS: Hematocrit 30.6 % (37.0-47.0); Hemoglobin 9.6 g/dL (12.0-15.0); Mean Corpuscular HGB Conc 31.4 g/dl (32-36); Mean Corpuscular Hemoglobin 28.5 pg (26-34); Mean Corpuscular Volume 90.8 fl (80-100); Mean Platelet Volume 9.5 fl (7.4-10.4); Platelet Count Result 235 k/mm3 (150-375); Red Blood Count 3.37 M/mm3 (4.2-5.4); Red Cell Distribution Width 13.8 % (11.5-14.5); White Blood Count 11.3 K/mm3 (4.5-10.0)
[2022-05-31 05:54] LABS: Anion Gap -1 mmol/L (8-16); Blood Urea Nitrogen 14 mg/dL (7-17); Calcium 8.2 mg/dL (8.4-10.2); Carbon Dioxide 31 mmol/L (22-30); Chloride 107 mmol/L (98-107); Estimated CRCL calculation 130 ml/min; Estimated Glomerular Filt Rate > 60; Glucose 136 mg/dL (65-110); Potassium 4.2 mmol/L (3.4-5.0); Sodium 137 mmol/L (137-145)
--- NOTE | 2022-05-31 07:43 | WPDANESPN ---
Anes - Prog Note Post-Op Date/Time: 05/31/22 07:43 Cardiovascular status: normal Respiratory status: normal Airway patency: baseline Mental status: baseline Post-Op hydration status: normal Vital Signs: Last Vital Signs Temp 35.6 C L 05/31/22 03:12 Pulse 61 05/31/22 03:12 Resp 20 05/31/22 03:12 BP 100/49 L 05/31/22 03:12 Pulse Ox 97 05/31/22 03:12 O2 Del Method Room Air 05/30/22 15:08 O2 Flow Rate 3 05/30/22 14:14 Pain Score (VAS): 04/22 I/O: Intake & Output 05/30/22 05/30/22 05/31/22 15:59 23:59 07:59 Intake Total 900 50 540 Output Total 650 Balance 250 50 540 Laboratory Tests 05/31/22 05:24 05/31/22 05:24 05/31/22 05/31/22 05:24 05:24 WBC 11.3 H RBC 3.37 L Hgb 9.6 L Hct 30.6 L MCV 90.8 MCH 28.5 MCHC 31.4 L RDW 13.8 Plt Count 235 MPV 9.5 Sodium 137 Potassium 4.2 Chloride 107 Carbon Dioxide 31 H Anion Gap -1 L BUN 14 D Creatinine 0.50 L Estim Creat Clear Calc 130 Estimated GFR > 60 Glucose 136 H Calcium 8.2 L Post-procedural complaints: none Patient Feedback: Patient satisfied with anesthetic care.
[2022-05-31] MEDS: HYDROcodone/acetaminophen (*CRX) 5-325 MG TABLET 1 TAB PO ×2 (09:17→16:47)
[2022-05-31] MEDS: polyethylene glycoL 3350 17 GM POWD.PACK PO (09:18)
[2022-05-31] MEDS: SENNA/DOCUSATE SODIUM TABLET 2 TAB PO ×2 (09:18→16:43)
--- NOTE | 2022-05-31 15:29 | PM.PNORT ---
Progress Note: A&P Assessment and Plan (1) Closed trimalleolar fracture of ankle: Qualifiers: Encounter type: subsequent encounter Laterality: right Fracture healing: with routine healing Qualified Code(s): S82.851D - Displaced trimalleolar fracture of right lower leg, subsequent encounter for closed fracture with routine healing Code(s): S82.853A - Displaced trimalleolar fracture of unspecified lower leg, initial encounter for closed fracture Status: Acute Assessment and Plan: Postoperative day 1 open reduction internal fixation right ankle fracture. Splint in place. Pain relatively well controlled. Tolerating regular diet. Continue PT/ OT with nonweightbearing. Crutch/ walker training and stairs. Disposition home versus penitentiary when medically stable. Subjective Subjective Date/Time Seen: 05/31/22 15:29 Post Op day: 1 Principal diagnosis: Right ankle fracture Interval history: patient awake and alert. Complains of lateral ankle pain right side. Tolerating regular food. Exam Const: General: comfortable; No acute distress Resp: Effort & Inspection: normal respiratory effort and no audible wheezes Extrem: Left lower extremity: normal to inspection, ankle Details: normal ROM and foot Details: vascular exam Details: dorsalis pedis pulse present and normal capillary refill and motor-sensory exam light-touch normal in all toes; no edema Other: Splint in place right ankle. Toes with good capillary refill. Able to move toes, good sensation to touch. Objective Data Vital Signs Vital Signs: Vital Signs - 24 hr 05/30/22 16:15 05/30/22 19:43 05/30/22 23:41 Temperature 96.2 F L 96.4 F L 96.0 F L Pulse Rate 67 64 61 Respiratory Rate 16 20 20 Blood Pressure 120/55 L 113/58 L 112/75 Pulse Oximetry 97 98 95 Oxygen Delivery 05/31/22 03:12 05/31/22 08:04 05/31/22 09:18 Temperature 96.0 F L 96.1 F L Pulse Rate 61 62 Respiratory Rate 20 20 20 Blood Pressure 100/49 L 118/60 Pulse Oximetry 97 96 96 Oxygen Delivery Room Air 05/31/22 12:59 Temperature Pulse Rate Respiratory Rate Blood Pressure Pulse Oximetry 99 Oxygen Delivery Room Air Intake/Output Intake/Output: Intake & Output 05/28/22 05/29/22 05/30/22 05/31/22 23:59 23:59 23:59 23:59 Intake Total 2890 1350 946 Output Total 200 1300 Balance 2690 50 946 Meds/Results Medications: Active Medications Generic Name Dose Route Start Last Admin Trade Name Freq PRN Reason Stop Dose Admin Acetaminophen 650 mg 05/30/22 14:19 Acetaminophen 325 Mg Tablet PO Q6H PRN Fever Hydrocodone Bitart/Acetaminophen 1 tab 05/29/22 12:47 05/31/22 09:17 Hydrocodone/Acetaminophen (*Crx) 5-325 Mg Tablet PO 1 tab Q6H PRN Administration Pain Rated 4-6 Diazepam 5 mg 05/30/22 14:19 05/30/22 20:04 Diazepam (*Crx) 5 Mg Tablet PO 5 mg Q8H PRN Administration Muscle Spasm Docusate Sodium 100 mg 05/29/22 12:48 Docusate Sodium 100 Mg Capsule PO Q12H PRN Constipation Heparin Sodium (Porcine) 5,000 units 05/31/22 21:00 Heparin Sodium 5,000 Units/Ml Vial SUB-Q Q12HR [facility] Morphine Sulfate 2 mg 05/29/22 12:47 05/31/22 10:40 Morphine Sulfate (*Crx) 2 Mg/Ml Inj IV PUSH 2 mg Q4H PRN Administration Pain Rated 7-10 Naloxone HCl 0.1 mg 05/30/22 14:19 Naloxone Hcl 0.4 Mg/Ml Vial IV PUSH Q2M PRN Opiate Reversal Ondansetron HCl 4 mg 05/29/22 04:28 05/29/22 15:30 Ondansetron Inj 4 Mg/2 Ml Vial IV PUSH 4 mg Q4H PRN Administration Nausea Polyethylene Glycol 17 gm 05/30/22 09:00 05/31/22 09:18 Polyethylene Glycol 3350 17 Gm Powd.Pack PO 17 gm QAM MARIANN Administration Senna/Docusate Sodium 2 tab 05/30/22 17:00 05/31/22 09:18 Senna/Docusate Sodium Tablet PO 2 tab BID MARIANN Administration Radiology Results: ITS Impressions Ankle X-Ray 05/29/22 07:53 Impression: 1: Displaced
--- NOTE | 2022-05-31 16:13 | PM.IMPN ---
Progress Note: A&P Assessment and Plan (1) Closed trimalleolar fracture of ankle: Qualifiers: Encounter type: subsequent encounter Fracture healing: with routine healing Laterality: right Qualified Code(s): S82.851D - Displaced trimalleolar fracture of right lower leg, subsequent encounter for closed fracture with routine healing Code(s): S82.853A - Displaced trimalleolar fracture of unspecified lower leg, initial encounter for closed fracture Status: Acute Assessment and Plan: x-ray of right ankle revealed distal to be filled the fracture with significant dorsal displacement. Ankle was reduced in the ED and repeat x-ray with successful reduction. Patient's right ankle splinted Orthopedics consulted and appreciate recommendations PT consulted Analgesics as needed, ice and elevate Patient elected for surgical intervention is planned to have ORIF right ankle fracture on 05/30/2022 05/31/2022 patient continue to work with therapy. Per Ortho does recommendations patient's stay 1 more day and if unable to walk up stairs, maintain pain control, etcetera she will need to go to acute rehab rehab. (2) Crohn's disease: Onset Date: ~2007 Qualifiers: Gastrointestinal tract location: small and large intestine Digestive disease complication type: with fistula Qualified Code(s): K50.813 - Crohn's disease of both small and large intestine with fistula Code(s): K50.90 - Crohn's disease, unspecified, without complications Status: Chronic Assessment and Plan: Patient taking Stelara. Subjective Date/time seen: 05/31/22 16:13 Interval history: Patient up to the chair and just got done working with therapy when I walked in the room. Patient still having pretty significant right ankle pain. Patient with no other complaints at this time. Patient is continue to work with therapy. Orthopedics wanting patient to stay 1 more day to work with therapy although if she is unable to succeed with that she will have to be sent to an acute rehab. Review of Systems Review of Systems: All systems reviewed & are unremarkable except as noted in HPI and below Exam Narrative: GENERAL: Comfortable, no acute distress HENMT: moist mucous membranes EYES: EOM intact b/l RESPIRATORY: clear to auscultation CARDIO: RRR GI: Tender, soft, bowel sounds present SKIN: no rashes EXTREMITIES: Splint over the right ankle present Objective Data Vital Signs Vital Signs: Vital Signs - 24 hr 05/30/22 16:15 05/30/22 19:43 05/30/22 23:41 Temperature 96.2 F L 96.4 F L 96.0 F L Pulse Rate 67 64 61 Respiratory Rate 16 20 20 Blood Pressure 120/55 L 113/58 L 112/75 Pulse Oximetry 97 98 95 Oxygen Delivery 05/31/22 03:12 05/31/22 08:04 05/31/22 09:18 Temperature 96.0 F L 96.1 F L Pulse Rate 61 62 Respiratory Rate 20 20 20 Blood Pressure 100/49 L 118/60 Pulse Oximetry 97 96 96 Oxygen Delivery Room Air 05/31/22 12:59 05/31/22 14:00 Temperature 96.4 F L Pulse Rate 63 Respiratory Rate 19 Blood Pressure 120/62 Pulse Oximetry 99 96 Oxygen Delivery Room Air Intake/Output Intake/Output: Intake & Output 05/28/22 05/29/22 05/30/22 05/31/22 23:59 23:59 23:59 23:59 Intake Total 2890 1350 946 Output Total 200 1300 Balance 2690 50 946 Meds/Results Medications: Active Medications Generic Name Dose Route Start Last Admin Trade Name Freq PRN Reason Stop Dose Admin Acetaminophen 650 mg 05/30/22 14:19 Acetaminophen 325 Mg Tablet PO Q6H PRN Fever Hydrocodone Bitart/Acetaminophen 1 tab 05/29/22 12:47 05/31/22 09:17 Hydrocodone/Acetaminophen (*Crx) 5-325 Mg Tablet PO 1 tab Q6H PRN Administration Pain Rated 4-6 Diazepam 5 mg 05/30/22 14:19 05/30/22 20:04 Diazepam (*Crx) 5 Mg Tablet PO 5 mg Q8H PRN Administration Muscle Spasm Docusate Sodium 100 mg 05/29/22 12:48 Docusate Sodium 100 Mg Capsule PO
[2022-05-31] MEDS: diazePAM (*CRX) 5 MG TABLET PO (20:27)
[2022-05-31] MEDS: HEPARIN SODIUM 5,000 UNITS/ML VIAL 5000 UNITS SUB-Q (20:27)
[2022-06-01] VITALS: BP 114/63; PULSE 69; RESP 20; TEMP 35.8; O2SAT 99
[2022-06-01] MEDS: MORPHINE SULFATE (*CRX) 2 MG/ML INJ IV PUSH (00:22)
[2022-06-01 02:49] VITALS: BP 130/66; PULSE 64; RESP 20; TEMP 36.1; O2SAT 98
[2022-06-01 05:54] LABS: Hematocrit 29.4 % (37.0-47.0); Hemoglobin 9.2 g/dL (12.0-15.0); Mean Corpuscular HGB Conc 31.3 g/dl (32-36); Mean Corpuscular Hemoglobin 28.9 pg (26-34); Mean Corpuscular Volume 92.5 fl (80-100); Mean Platelet Volume 9.5 fl (7.4-10.4); Platelet Count Result 251 k/mm3 (150-375); Red Blood Count 3.18 M/mm3 (4.2-5.4); Red Cell Distribution Width 13.9 % (11.5-14.5); White Blood Count 7.4 K/mm3 (4.5-10.0)
[2022-06-01 06:08] LABS: Alanine Aminotransferase 14 U/L (6-35); Albumin Level 3.3 g/dL (3.5-5.1); Alkaline Phosphatase 58 U/L (38-126); Anion Gap 3 mmol/L (8-16); Aspartate Amino Transferase 22 U/L (14-36); Bilirubin,Total 0.5 mg/dL (0.2-1.3); Blood Urea Nitrogen 16 mg/dL (7-17); Calcium 7.9 mg/dL (8.4-10.2); Carbon Dioxide 30 mmol/L (22-30); Chloride 107 mmol/L (98-107); Estimated CRCL calculation 130 ml/min; Estimated Glomerular Filt Rate > 60; Glucose 88 mg/dL (65-110); Potassium 3.8 mmol/L (3.4-5.0); Sodium 140 mmol/L (137-145)
[2022-06-01] MEDS: HYDROcodone/acetaminophen (*CRX) 5-325 MG TABLET 1 TAB PO ×2 (06:11→11:43)
[2022-06-01] MEDS: polyethylene glycoL 3350 17 GM POWD.PACK PO (08:13)
[2022-06-01] MEDS: SENNA/DOCUSATE SODIUM TABLET 2 TAB PO (08:13)
[2022-06-01] MEDS: HEPARIN SODIUM 5,000 UNITS/ML VIAL 5000 UNITS SUB-Q (08:13)
[2022-06-01 10:00] VITALS: BP 147/78; PULSE 62; RESP 19; TEMP 36.4; O2SAT 100
--- NOTE | 2022-06-01 13:02 | PCPTNOTE ---
Attempted to see patient for PT, however patient declined at this time due to patient wanting to wait until her pain medication starts working. Patient's pain 08/20.
--- NOTE | 2022-06-01 14:04 | PM.DS ---
DS: Admitting Diagnosis Discharge Date 06/01/2022 Admitting Diagnosis closed right trimalleolar fracture h/o Crohn's disease DS: Discharge Diagnosis Discharge Diagnosis (1) Closed trimalleolar fracture of ankle: Qualifiers: Encounter type: subsequent encounter Fracture healing: with routine healing Laterality: right Qualified Code(s): S82.851D - Displaced trimalleolar fracture of right lower leg, subsequent encounter for closed fracture with routine healing Code(s): S82.853A - Displaced trimalleolar fracture of unspecified lower leg, initial encounter for closed fracture Status: Acute Assessment and Plan: x-ray of right ankle revealed distal fracture with significant dorsal displacement. Ankle was reduced in the ED and repeat x-ray with successful reduction. Patient's right ankle splinted Orthopedics consulted and appreciate recommendations. Patient elected for surgical intervention is planned to have ORIF right ankle fracture on 05/30/2022 PT consulted- patient had some difficulty with therapy and going upstairs. Patient adamant about not going to rehab. She reported having her spouse and daughter available at home. She does not know her PCP's name, but has it at home and will contact the office to arrange home health. Analgesics as needed, ice and elevate NWB RLE (2) Crohn's disease: Onset Date: ~2007 Qualifiers: Digestive disease complication type: with fistula Gastrointestinal tract location: small and large intestine Qualified Code(s): K50.813 - Crohn's disease of both small and large intestine with fistula Code(s): K50.90 - Crohn's disease, unspecified, without complications Status: Chronic Assessment and Plan: Patient taking Stelara. DS: Summary Hospital Course Reason for hospitalization: Right ankle pain Hospital Course: Melania Laboy is a 57-year-old female with Crohn's disease and bipolar disorder who presented to the ED on 05/29/2022?for evaluation of right ankle pain.? She reported twisting her ankle after getting up from her chair and taking a few steps on the day of admission. She denied using stairs or tripped over anything.? She has had multiple ankle sprains and?attributes this to her Crohn's disease medication, Stelara. ?She reported having 2 alcoholic beverages before this happened and when asking her about drinking she states that she drinks maybe once a year.? She had immediate swelling and bruising to her ankle.? Patient was unable to walk after this happened.? No head injury or losing consciousness.? X-rays of the right ankle revealed distal tibia -fibular fracture with significant dorsal displacement.? Patient was given fentanyl for pain control followed by procedural sedation and the ankle was reduced in the ED. repeat x-ray showed successful reduction.? Orthopedics was consulted.? She was admitted to the medical floor for further management and elected to have right ankle ORIF on 05/30/22. She participated in PT following surgery, however, was noted to have difficulty with weight bearing restrictions and stairs. The patient was adamant about not going to rehab. I discussed with PT and the patient was able to scoot herself up stairs and stand with 2 person assistance during therapy. The patient reported her spouse and daughter would be available for assistance almost all day at home. She was discharged home in stable condition. Pain was treated with oral Dustin PRN. Attempts to arrange home health were made, however, the patient did not know her PCP's name. She reported the information was at home and she would contact the office to have home health arranged. She verbalized understanding of need for home health. She will follow up with Ortho outpatient. Status at Discharge Cognitive/behavioral status at discharge: AOx4, pleasant. Functional status at discharge: uses cane/walker Overall status at discharge: patient is progressing back to
[2022-06-01 14:10] VITALS: BP 130/60; PULSE 68; RESP 18; TEMP 36.4; O2SAT 99
== END 2022-06-01 15:29 | disposition home or self-care (01) | DRG 313 ==
LOC: ANHED 04:34 → ANH2MED 05:56
PROVIDERS: Internal Medicine Critical Care Medicine; Orthopaedic Surgery; Admitting Provider Internal Medicine; Emergency Provider Physician Assistant; Visit Provider Nurse Practitioner Family
PROC: 0QSJ04Z Reposition Right Fibula with Internal Fixation Device, Open Approach (ICD-10-PCS; principal; 2022-05-30 10:00)
DX: S82.851A Displaced trimalleolar fracture of right lower leg, initial encounter for closed fracture (principal); K50.813 Crohn's disease of both small and large intestine with fistula; Z88.0 Allergy status to penicillin; Z88.5 Allergy status to narcotic agent; Z87.891 Personal history of nicotine dependence; W01.0XXA Fall on same level from slipping, tripping and stumbling without subsequent striking against object, initial encounter
CPT/HCPCS: 27818; 36415; 73610; 80048; 80053; 80307; 85025; 85027; 85610; 85730; 96361; 96365; 96374; 96375; 96376; 97110; 97116; 97161; 97165; 97530; 97535; 99199; 99285; A9270; C1713; C1769; G0378; G0379; J0131; J0330; J0690; J1100; J1170; J1644; J1885; J2250; J2270; J2405; J2704; J3010; J7030; J7120

== ENCOUNTER 2022-09-20 21:42 | Emergency (ER) | payer OTHER, SELFPAY ==
[2022-09-20 21:55] VITALS: BP 122/84; PULSE 98; RESP 16; TEMP 36.5; O2SAT 100
[2022-09-21] VITALS: BP 145/84; PULSE 70; RESP 14; O2SAT 99
[2022-09-21 01:06] VITALS: BP 135/82; PULSE 71; RESP 14; O2SAT 99
--- NOTE | 2022-09-21 01:11 | ED.GENADULT ---
HPI - General Adult General Chief complaint: Extremity Problem,Nontraumatic Stated complaint: right ankle issue Time Seen by Provider: 09/21/22 00:08 History of Present Illness HPI narrative: This is a 57-year-old female presenting ED for a wound check. Patient was seen earlier today at Dr. Ryan's office. She has a nickel sized ulceration on the medial aspect of her right ankle. Mild erythema around wound. She was started on Bactrim and silver carbonate 0.11%. She was able to fill the Bactrim but has not been able to get the silver carbonate. She tried to call the office but it was closed. She then came here to be evaluated. Patient is scheduled for a surgical debridement on . She denies fever chills nausea vomiting diarrhea. No significant change from this morning. Related Data Home Medications Medication Instructions Recorded Confirmed ustekinumab 90 mg/mL subcutaneous See Rx Instructions .Route .COMPLEX 05/29/22 09/20/22 syringe (Stelara) Allergies Allergy/AdvReac Type Severity Reaction Status Date / Time folic acid Allergy Mild BROKE OUT Verified 09/20/22 21:43 WITH RASH pyridoxine Allergy Mild Rash Verified 09/20/22 21:43 codeine Allergy Unknown Rash Verified 09/20/22 21:43 Penicillins Allergy Unknown Rash Verified 09/20/22 21:43 famotidine [From Pepcid] Allergy Itching Verified 09/20/22 21:43 pineapple AdvReac Severe THROAT Verified 09/20/22 21:43 CLOSED UP CALCIUM COMBINATION NO.1 Allergy Mild BROKE OUT Uncoded 09/20/22 21:43 WITH RASH PMFSH Past Medical History Medical History Anxiety Arthritis Bipolar 1 disorder (Unknown) Bronchitis Crohn's disease (~2007) DDD (degenerative disc disease) Depression Diarrhea Fibromyalgia Nausea & vomiting Normal colonoscopy Pancreatitis Right ankle sprain Shingles Sleep disorder Stomach pain Stomach ulcer Ulcer of ankle UTI (urinary tract infection) Weight gain Surgical History Surgical History H/O bilateral cataract extraction H/O colectomy H/O dilation and curettage H/O tubal ligation History of bowel resection History of right hip replacement (~2006) Hx of appendectomy Family History Family History Mother Depression Suicide Nerve disorder Family history of mental disorder Bipolar disorder Father Gastric artery aneurysm Hypertension Sibling Hypertension Social History Social History Social History: Patient currently lives with her boyfriend, daughter and grand kid at home. Patient states that she smokes a half a pack a day and has smoked since she has been 13 years old. She reports rarely using alcohol but when she does drink she drinks [place] and orange juice. She denies drug use. Smoking packs per day: 1 Smoking cigarettes per day: 20.0 Years smoked: 46 Smoking pack-years: 46.00 Smoking status: Current every day smoker Tobacco type: cigarettes Alcohol intake: current Drinks per week: 1 Substance use: never Substance use type: does not use Lack of Transportation: No Lack of Food: Never True Current Housing: I Have Housing Concerned About Future Housing: No Difficulty Paying Gas/Electric Bills: No Difficulty Paying for Meds: No Currently Unemployed: No Education: High School Diploma/GED Difficulty w/ Childcare or Family Care: No Gender identity (if verbalized by the patient): Female Spiritual care concerns: No Exam Narrative: APPEARANCE: No apparent distress. Head: atraumatic. EYES: EOMI, NOSE: Atraumatic NECK: Trachea midline RESPIRATORY: No increased rate of breathing CARDIOVASCULAR: RRR, ABDOMINAL: Non-distended MUSCULOSKELETAl: No obvious deformities NEURO: Alert. Moving 4/4 extremities SKIN:: Nickel sized area of ulceration
== END 2022-09-21 01:20 | disposition home or self-care (01) ==
PROVIDERS: Emergency Provider Emergency Medicine
DX: L98.499 Non-pressure chronic ulcer of skin of other sites with unspecified severity (principal); K50.90 Crohn's disease, unspecified, without complications; M19.90 Unspecified osteoarthritis, unspecified site; M79.7 Fibromyalgia; Z96.641 Presence of right artificial hip joint; Z87.440 Personal history of urinary (tract) infections; Z98.42 Cataract extraction status, left eye; Z98.41 Cataract extraction status, right eye; Z90.49 Acquired absence of other specified parts of digestive tract; F17.210 Nicotine dependence, cigarettes, uncomplicated
CPT/HCPCS: 99281

== ENCOUNTER 2022-09-22 03:30 | Day surgery (SDC) | payer OTHER, SELFPAY ==
[2022-09-21 08:34] VITALS: BMI 44.6
--- NOTE | 2022-09-21 08:43 | PC.NURSE ---
Report to the Outpatient Waiting Room, entrance under the green pavilion located off [facility], at time 1030 on date 09/22/22. Planned Procedure Time: 1230. Time changes happen often and if your time is changed the preop area will call you the afternoon before. - You and your visitor will be asked to self-screen and do not enter if you have any COVID symptoms. - A mask is optional within the hospital at this time. Patients may have clear liquids (water, carbonated beverages, clear teas, apple juice) until 3 hours prior to surgery with a maximum of 20 ounces. - No food from midnight until time of surgery Take the following medications with a SIP of water the morning of surgery: ANTIBIOTIC, PAIN PILL IF NEEDED DO NOT STOP ANY OF YOUR OTHER PRESCRIPTION MEDICATIONS PRIOR TO SURGERY ?EXCEPT THE FOLLOWING Medications to discontinue per physician: N/A Date to take last dose: N/A Please no make-up, nail latvian, hairspray, perfume, deodorant, or body powder the day of surgery. No jewelry (including any body piercings) or valuables the day of surgery, leave them at home. Please take a shower or bath the night before, or the morning of, surgery with an antibacterial soap. Wear comfortable, loose fitting clothing. - Jewelry must be removed prior to entering the operating room. Rings and piercings that are not removed may be cut off. - The hospital will not accept responsibility for valuables. - Please leave all valuables, including medications, at home the day of surgery. If you are going home after surgery, a licensed dedicated local truck driver must drive you home. - NO public transportation without another adult if you receive anesthesia. - We recommend that an adult stay with you for 24 hours following discharge. - We also recommend that you do not drive, make important decision, drink alcoholic beverages, or take any drugs that were not prescribed by your health care provider for at least 24 hours after your discharge time. Follow any additional instructions given to you from your surgeon. If you or anyone in your household have experienced Covid symptoms in the past week, please notify your surgeon or the nurse liaison at the phone number below for possible testing. Telephone instructions given to DILEEP BEE and asked if any additional questions and then verbalized understanding. Patient advised to call surgeon office or pre surgery nurse liaison [phone] if any additional questions.
[2022-09-22] VITALS (8 sets, daily range): BP systolic 114–136; BP diastolic 56–89; PULSE 64–94; RESP 14–19; TEMP 36.3–36.4; O2SAT 95–99
--- NOTE | ~2022-09-22 | XR_ITS ---
EXAMINATION: XR surgery orthopedic DATE: 09/22/2022 14:20 INDICATION: Right ankle debridement and grafting TECHNIQUE: 3 fluoroscopic images of the right ankle were obtained during procedure performed by Dr. Phillip rosario. Radiologist was not present for the imaging or procedure. The amount of fluoroscopy time used during this procedure was 0.1 minutes. COMPARISON: Radiographs dated between 09/20/2022 and 05/29/2022 FINDINGS: Images demonstrate no interval change in a lateral and screw fixation along the distal fibula or a pa ir of cannulated lag screws spanning the medial malleolus. There is been associated tightrope type sy ndesmotic fixation with the cephalad most of the 2 previously seen metallic buttons along the medial side of the distal tibia remaining in place. The second more caudal button lung with overlying small bone fragment appear to have been resected. The medial and lateral malleolar fractures. Healing in es sentially anatomic alignment. Unchanged minimal posterior displacement of a small posterior malleolar fragment which is not included within the fixation. IMPRESSION: 1. Internal fixation of a trimalleolar fracture at the right ankle which is in near-anatomic alignmen t with removal of one of the two medial sided buttons for a distal tibiofibular syndesmotic fixation as well as of a small overlying bone fragment. Correlate with procedure note for further detail. Reviewed, dictated and finalized at location A. IMPRESSION: 1. Internal fixation of a trimalleolar fracture at the right ankle which is in near-anatomic alignment with removal of one of the two medial sided buttons for a distal tibiofibular syndesmotic fixation as well as of a small overlying bon e fragment. Correlate with procedure note for further detail.
--- NOTE | 2022-09-22 07:03 | WPDHPUPDATE1 ---
History and Physical Update Update Date/Time: 09/22/22 07:03 History and Physical has been reviewed, including an updated exam of the patient. There are NO changes in the patient's condition. Risks, benefits, and alternatives have been discussed and questions answered. Patient agrees to proceed with procedure.
--- NOTE | 2022-09-22 11:16 | ECG_ITS ---
Measurements Intervals [place] Rate: 72 P: 43 MN: 167 QRS: -1 QRSD: 94 T: 48 QT: 375 QTc: 412 Interpretive Statements SINUS RHYTHM BASELINE WANDER- I, II, AVR, AVF NORMAL ECG COMPARED TO ECG 01/14/2020 22:40:40 NO SIGNIFICANT CHANGES Electronically Signed On 09-22-2022 11:58:17 CDT by Marcel Ortiz D.O.
[2022-09-22] MEDS: KETOROLAC 15 MG/ML VIAL (*BKC) IV PUSH (11:24)
[2022-09-22] MEDS: ACETAMINOPHEN 500 MG TABLET 1000 MG PO (11:24)
[2022-09-22] MEDS: LACTATED RINGERS 1,000 ML 30 ML IV CONT ×2 (11:34→14:45)
--- NOTE | 2022-09-22 12:04 | WPDANESEPPF ---
Anes - Initial Pre Proc Eval Procedure: Operation Date: 09/22/22 12:30 Proposed Procedures p Debridement of Right Ankle with Graft Application - Romie Ryan MD Date/Time: 09/22/22 12:04 Surgeon: Romie Ryan MD Pre Op Diagnosis: Right Ankle Ulcer Patient Data Age: 57 Gender: F Height: 1.63 m Weight: 110.6 kg Last Vital Signs Temp 36.4 C 09/22/22 11:28 Pulse 83 09/22/22 11:28 Resp 14 09/22/22 11:28 BP 136/78 09/22/22 11:28 Pulse Ox 97 09/22/22 11:28 O2 Del Method Room Air 09/22/22 11:28 Allergies Allergy/AdvReac Type Severity Reaction Status Date / Time folic acid Allergy Mild BROKE OUT Verified 09/22/22 11:35 WITH RASH pyridoxine Allergy Mild Rash Verified 09/22/22 11:35 codeine Allergy Unknown Rash Verified 09/22/22 11:35 Penicillins Allergy Unknown Rash Verified 09/22/22 11:35 famotidine [From Pepcid] Allergy Itching Verified 09/22/22 11:35 pineapple AdvReac Severe THROAT Verified 09/22/22 11:35 CLOSED UP CALCIUM COMBINATION NO.1 Allergy Mild BROKE OUT Uncoded 09/22/22 11:35 WITH RASH Home Medications Medication Instructions Recorded Confirmed Type ustekinumab 90 mg/mL subcutaneous See Rx Instructions .Route .COMPLEX 05/29/22 09/21/22 History syringe (Stelara) docusate sodium 100 mg capsule 100 mg PO Q12H PRN Constipation 30 05/31/22 09/21/22 Rx days #60 caps gabapentin 300 mg capsule 300 mg PO QHS #30 caps 07/04/22 09/21/22 Rx hydrocodone 7.5 mg-acetaminophen 1 tablet PO Q6H PRN pain #30 tabs 09/20/22 09/21/22 Rx 325 mg tablet sulfamethoxazole 800 1 tablet PO Q12H #10 tabs 09/20/22 09/21/22 Rx mg-trimethoprim 160 mg tablet (Bactrim DS) silver carbonate 0.11 % topical 1 applic topical BID #45 grams 09/21/22 Rx gel (Normlgel Ag) Patient hx anesthesia problems: none Family hx anesthesia problems: none Results Review: All pre-operative results and documents have been reviewed as part of the pre-operative evaluation. [facility] Past Medical History Medical History Anxiety Arthritis Bipolar 1 disorder (Unknown) Bronchitis Crohn's disease (~2007) DDD (degenerative disc disease) Depression Diarrhea Fibromyalgia Nausea & vomiting Normal colonoscopy Pancreatitis Right ankle sprain Shingles Sleep disorder Stomach pain Stomach ulcer Ulcer of ankle UTI (urinary tract infection) Weight gain Surgical History Surgical History H/O bilateral cataract extraction H/O colectomy H/O dilation and curettage H/O tubal ligation History of bowel resection History of right hip replacement (~2006) Hx of appendectomy Family History Family History Mother Depression Suicide Nerve disorder Family history of mental disorder Bipolar disorder Father Gastric artery aneurysm Hypertension Sibling Hypertension Social History Social History Social History: Patient currently lives with her boyfriend, daughter and grand kid at home. Patient states that she smokes a half a pack a day and has smoked since she has been 13 years old. She reports rarely using alcohol but when she does drink she drinks [place] and orange juice. She denies drug use. Smoking packs per day: 1 Smoking cigarettes per day: 20.0 Years smoked: 30 Smoking pack-years: 30.00 Smoking status: Current every day smoker Tobacco type: cigarettes Alcohol intake: never Drinks per week: 1 Substance use: never Substance use type: does not use Lack of Transportation: No Lack of Food: Never True Current Housing: I Have Housing Concerned About Future Housing: No Difficulty Paying Gas/Electric Bills: No Difficulty Paying for Meds: No Currently Unemployed: No Education: High School Diploma/GED Difficulty w/ Childcare or Fam
[2022-09-22] MEDS: ceFAZolin 2 GM/D5W 50 ML 2 GM/50 ML BAG IVPB (13:34)
[2022-09-22] MEDS: BUPivacaine HCL 0.5% 10 ML AMP INFILTRATE (14:08)
[2022-09-22] MEDS: VANCOMYCIN HCL 1,000 MG VIAL 1000 MG TOPICAL (14:09)
[2022-09-22] MEDS: fentaNYL CITRATE INJ (*CRX) 100 MCG/2 ML VIAL 25 MCG IV PUSH ×8 (14:50→15:25)
--- NOTE | 2022-09-22 14:51 | W.PM.PROC2 ---
Procedure Note - Detailed Date of Procedure 09/22/22 Pre-op Diagnosis Right Ankle abscess, painful orthopedic hardware Post-op Diagnosis Same Procedure Performed excisional debridement right ankle abscess, removal of deep hardware , application graft Surgeon Romie Ryan MD Asset Protection Officer 1st management assistant Anesthesia General Indications so 57-year-old woman with previous right ankle fracture treated with internal fixation. Has now developed an ulcer over the medial aspect of the tibia. Also with pain noted with the internal fixation. Presents for operative treatment. Findings Abscess with bony material medial distal tibia. Suture button on the periosteum of the medial tibia. Description of Procedure Patient identified in the preoperative holding. Informed consent given. Operative extremity marked. Patient received intravenous antibiotics. Patient brought to the operating room where underwent general anesthetic by anesthesia team. Positioned supine on operating room table. Time-out performed confirming the patient, site of the surgery and the plan. Right ankle prepped draped usual sterile surgical fashion using Betadine prep solution. The ulcer measured 2.5 cm in diameter over the medial distal tibial. There was a central necrotic area with drainage. 15 blade knife was then used to ellipse the ulcer. Skin, subcutaneous tissue, muscle and bone were all sharply excised and passed off. 15 blade knife was used to resect tissue medially laterally proximal and distally until good viable tissue encountered. [place] used to sharply excise bone from the wound bed. The ulcer measured 3.5 cm x 1 cm at the end of debridement. Wound was then thoroughly irrigated with vancomycin solution. The proximal distal and were closed with 2-0 Monocryl interrupted suture. Micro matrix 500 mg powder was then prepared on the back table with saline and placed into the wound does graft. The skin was then closed proximally distally with 0 Prolene interrupted suture. This left an open central area which was covered with the bilayer wound matrix xenograft skin. This was attached with 3-0 Monocryl interrupted suture. 15 blade knife was used to make incision over the hardware. Dissection carried down to the medial tibia. The suture button from the tight rope was found on the medial cortex of the tibia suture was sharply released with a 15 blade knife. The button and tissue were released with a rongeur. Wound irrigated and closed with 3-0 Monocryl interrupted suture and 0 Prolene. Sterile dressing applied. The patient was then woken from anesthesia, extubated and taken to the recovery room in stable condition. All sponge, needle, instrument counts were correct at the end of the case. Estimated Blood Loss 20 Tourniquet Time 0 Drains No Packing No Pathology None sent Complications None Condition Stable Disposition PACU [facility] Billing Surgery - Charge Forward: Surgery Billing ([id number], [id number], [id number])
== END 2022-09-22 16:38 | disposition home or self-care (01) ==
PROVIDERS: Visit Provider Orthopaedic Surgery
PROC: (CPT 20680; principal; 2022-09-22 12:30)
DX: T84.84XA Pain due to internal orthopedic prosthetic devices, implants and grafts, initial encounter (principal); L02.415 Cutaneous abscess of right lower limb; S82.851D Displaced trimalleolar fracture of right lower leg, subsequent encounter for closed fracture with routine healing; M25.571 Pain in right ankle and joints of right foot; W01.0XXD Fall on same level from slipping, tripping and stumbling without subsequent striking against object, subsequent encounter; Y83.8 Other surgical procedures as the cause of abnormal reaction of the patient, or of later complication, without mention of misadventure at the time of the procedure; K50.90 Crohn's disease, unspecified, without complications; F31.9 Bipolar disorder, unspecified; M79.7 Fibromyalgia; Z79.620 Long term (current) use of immunosuppressive biologic; Z90.49 Acquired absence of other specified parts of digestive tract; F17.210 Nicotine dependence, cigarettes, uncomplicated; E66.01 Morbid (severe) obesity due to excess calories; Z68.41 Body mass index [BMI] 40.0-44.9, adult
CPT/HCPCS: 20680; 11044; 15271; 88304; 93005; 99199; A9270; C9363; J0690; J1100; J1170; J1885; J2250; J2405; J2704; J3010; J3370; J7120; Q4118

== ENCOUNTER 2022-12-16 07:13 | Outpatient (RCR) | payer OTHER, SELFPAY ==
[2022-11-10 08:50] VITALS: BMI 41.2
--- NOTE | 2022-11-18 09:39 | PM.IMHP ---
H&P: HPI History of Present Illness Date/Time: 11/18/22 09:39 Chief Complaint: Right ankle ulcer Narrative: [facility] outpatient wound clinic visit for right ankle ulcer. 6 months status post open reduction internal fixation right ankle fracture dislocation. Wound treated with debridement and graft application. We now doing dressing changes at home. No interim complaints. Review of Systems Constitutional: Constitutional: Reports no additional constitutional complaints, Denies chills, Denies fatigue, Denies fever(s), Denies headache(s) and Denies weakness Eyes: Eyes: Denies change in vision ENT: Reports Normal hearing present and Denies headache(s) Cardiovascular: Cardiovascular: Denies chest pain and Denies dyspnea Respiratory: Respiratory: Denies cough, Denies dyspnea and Denies wheezing Gastrointestinal: Gastrointestinal: Denies constipation, Denies diarrhea, Denies nausea and Denies vomiting Genitourinary: Genitourinary: Denies hematuria, Denies dysuria and Denies urinary urgency Musculoskeletal: Musculoskeletal: Reports as per HPI, Denies numbness and Denies tingling Integumentary/Breasts: Skin/Breast: Reports as per HPI Neurologic: Reports as per HPI, Reports Normal hearing present, Denies headache(s), Denies numbness, Denies tingling and Denies weakness Psychiatric: Psychiatric: Reports no additional psychiatric complaints Endocrine: Endocrine: Reports no additional endocrine complaints and Denies fatigue Hematologic/Lymphatic: Hematologic/Lymphatic: Reports no additional hematologic/lymphatic complaints Allergic/Immunologic: Allergic/Immunologic: Reports no additional allergic/immunologic complaints and Denies wheezing PMFSH Past Medical History Medical History Anxiety Arthritis Bipolar 1 disorder (Unknown) Bronchitis Crohn's disease (~2007) DDD (degenerative disc disease) Depression Diarrhea Encounter for postoperative care Fibromyalgia Nausea & vomiting Normal colonoscopy Pancreatitis Right ankle sprain Shingles Sleep disorder Stomach pain Stomach ulcer Ulcer of ankle UTI (urinary tract infection) Weight gain Surgical History Surgical History H/O bilateral cataract extraction H/O colectomy H/O dilation and curettage H/O tubal ligation History of bowel resection History of right hip replacement (~2006) Hx of appendectomy Family History Family History Mother Depression Suicide Nerve disorder Family history of mental disorder Bipolar disorder Father Gastric artery aneurysm Hypertension Sibling Hypertension Social History Social History Social History: Patient currently lives with her boyfriend, daughter and grand kid at home. Patient states that she smokes a half a pack a day and has smoked since she has been 13 years old. She reports rarely using alcohol but when she does drink she drinks [place] and orange juice. She denies drug use. Smoking packs per day: 1 Smoking cigarettes per day: 20.0 Years smoked: 30 Smoking pack-years: 30.00 Smoking status: Current every day smoker Tobacco type: cigarettes Alcohol intake: never Drinks per week: 1 Substance use: never Substance use type: does not use Lack of Transportation: No Lack of Food: Never True Current Housing: I Have Housing Concerned About Future Housing: No Difficulty Paying Gas/Electric Bills: No Difficulty Paying for Meds: No Currently Unemployed: No Education: High School Diploma/GED Difficulty w/ Childcare or Family Care: No Living arrangements: with family Gender identity (if verbalized by the patient): Female Spiritual care concerns: No Meds Home Medications and Allergies Home Medications Medication Instructions Recorded Con
--- NOTE | 2022-11-25 10:01 | PM.PNORT ---
Progress Note: A&P Assessment and Plan (1) Ulcer of ankle: Qualifiers: Laterality: right Non-pressure ulcer stage: with necrosis of muscle Qualified Code(s): L97.313 - Non-pressure chronic ulcer of right ankle with necrosis of muscle Code(s): L97.309 - Non-pressure chronic ulcer of unspecified ankle with unspecified severity Status: Acute Assessment and Plan: Follow-up visit [facility] wound clinic. Patient states she stopped smoking in the interim. She has been 6 days without tobacco. Continuing with silver rope for the wound. Noted improvement in dimensions and appearance. Continue with silver rope and daily dressing changes. Pain control reviewed. Follow-up in 1 week. (2) Closed trimalleolar fracture of ankle: Qualifiers: Encounter type: subsequent encounter Fracture healing: with routine healing Laterality: right Qualified Code(s): S82.851D - Displaced trimalleolar fracture of right lower leg, subsequent encounter for closed fracture with routine healing Code(s): S82.853A - Displaced trimalleolar fracture of unspecified lower leg, initial encounter for closed fracture Status: Acute Subjective Subjective Date/Time Seen: 11/25/22 10:01 Post Op day: 2mos Principal diagnosis: Right ankle ulcer Interval history: follow-up [facility] outpatient wound clinic for right ankle ulcer. Patient states stopped smoking in the interim. Daily dressing changes with silver rope. No interim complaints or changes. Review of Systems Constitutional: Constitutional: Reports no additional constitutional complaints, Denies chills, Denies fatigue, Denies fever(s), Denies headache(s) and Denies weakness Eyes: Eyes: Denies change in vision ENT: Reports Normal hearing present and Denies headache(s) Cardiovascular: Cardiovascular: Denies chest pain and Denies dyspnea Respiratory: Respiratory: Denies cough, Denies dyspnea and Denies wheezing Gastrointestinal: Gastrointestinal: Denies constipation, Denies diarrhea, Denies nausea and Denies vomiting Genitourinary: Genitourinary: Denies hematuria, Denies dysuria and Denies urinary urgency Musculoskeletal: Musculoskeletal: Reports as per HPI, Denies numbness and Denies tingling Integumentary/Breasts: Skin/Breast: Reports as per HPI Neurologic: Reports as per HPI, Reports Normal hearing present, Denies headache(s), Denies numbness, Denies tingling and Denies weakness Psychiatric: Psychiatric: Reports no additional psychiatric complaints Endocrine: Endocrine: Reports no additional endocrine complaints and Denies fatigue Hematologic/Lymphatic: Hematologic/Lymphatic: Reports no additional hematologic/lymphatic complaints Allergic/Immunologic: Allergic/Immunologic: Reports no additional allergic/immunologic complaints and Denies wheezing Exam Const: General: comfortable; No acute distress Resp: Effort & Inspection: normal respiratory effort and no audible wheezes Neuro: Cranial nerves: Yes Normal hearing present Extrem: Left lower extremity: normal to inspection, ankle Details: normal ROM and foot Details: vascular exam Details: dorsalis pedis pulse present and normal capillary refill and motor-sensory exam light-touch normal in all toes; no edema Other: Right ankle wound measures 0.8 by 0.6 x 0.7 cm. 80% granulation noted. No purulence or surrounding erythema. Mild serous drainage. Does not probe to bone. Objective Data Meds/Results Medications: Active Medications Generic Name Dose Route Start Last Admin Trade Name Freq PRN Reason Stop Dose Admin Silver Nitrate 1 each 11/10/22 10:11 Aquacel Ag Advantage Bandage (*Bkc) TOPICAL 02/10/23 23:55 PRN PRN Wound Care [facility] Follow-up Billing Hospital Follow-up Hospital Follow-up: [id number] Estab Pt Lvl 3
--- NOTE | 2022-12-02 09:17 | PM.IMHP ---
H&P: HPI History of Present Illness Date/Time: 12/02/22 09:17 Chief Complaint: Right ankle ulcer Narrative: [facility] outpatient wound clinic visit for right ankle ulcer. 6 months status post open reduction internal fixation right ankle fracture dislocation. Wound treated with debridement and graft application. No interim complaints. Review of Systems Constitutional: Constitutional: Reports no additional constitutional complaints, Denies chills, Denies fatigue, Denies fever(s), Denies headache(s) and Denies weakness Eyes: Eyes: Denies change in vision ENT: Reports Normal hearing present and Denies headache(s) Cardiovascular: Cardiovascular: Denies chest pain and Denies dyspnea Respiratory: Respiratory: Denies cough, Denies dyspnea and Denies wheezing Gastrointestinal: Gastrointestinal: Denies constipation, Denies diarrhea, Denies nausea and Denies vomiting Genitourinary: Genitourinary: Denies hematuria, Denies dysuria and Denies urinary urgency Musculoskeletal: Musculoskeletal: Reports as per HPI, Denies numbness and Denies tingling Integumentary/Breasts: Skin/Breast: Reports as per HPI Neurologic: Reports as per HPI, Reports Normal hearing present, Denies headache(s), Denies numbness, Denies tingling and Denies weakness Psychiatric: Psychiatric: Reports no additional psychiatric complaints Endocrine: Endocrine: Reports no additional endocrine complaints and Denies fatigue Hematologic/Lymphatic: Hematologic/Lymphatic: Reports no additional hematologic/lymphatic complaints Allergic/Immunologic: Allergic/Immunologic: Reports no additional allergic/immunologic complaints and Denies wheezing PMFSH Past Medical History Medical History Anxiety Arthritis Bipolar 1 disorder (Unknown) Bronchitis Crohn's disease (~2007) DDD (degenerative disc disease) Depression Diarrhea Encounter for postoperative care Fibromyalgia Nausea & vomiting Normal colonoscopy Pancreatitis Right ankle sprain Shingles Sleep disorder Stomach pain Stomach ulcer Ulcer of ankle UTI (urinary tract infection) Weight gain Surgical History Surgical History H/O bilateral cataract extraction H/O colectomy H/O dilation and curettage H/O tubal ligation History of bowel resection History of right hip replacement (~2006) Hx of appendectomy Family History Family History Mother Depression Suicide Nerve disorder Family history of mental disorder Bipolar disorder Father Gastric artery aneurysm Hypertension Sibling Hypertension Social History Social History Social History: Patient currently lives with her boyfriend, daughter and grand kid at home. Patient states that she smokes a half a pack a day and has smoked since she has been 13 years old. She reports rarely using alcohol but when she does drink she drinks [place] and orange juice. She denies drug use. Smoking packs per day: 1 Smoking cigarettes per day: 20.0 Years smoked: 30 Smoking pack-years: 30.00 Smoking status: Current every day smoker Tobacco type: cigarettes Alcohol intake: never Drinks per week: 1 Substance use: never Substance use type: does not use Lack of Transportation: No Lack of Food: Never True Current Housing: I Have Housing Concerned About Future Housing: No Difficulty Paying Gas/Electric Bills: No Difficulty Paying for Meds: No Currently Unemployed: No Education: High School Diploma/GED Difficulty w/ Childcare or Family Care: No Living arrangements: with family Gender identity (if verbalized by the patient): Female Spiritual care concerns: No Meds Home Medications and Allergies Home Medications Medication Instructions Recorded Confirmed Type ustekinumab 90 mg/mL subcutaneous S
--- NOTE | 2022-12-16 08:23 | PM.IMHP ---
H&P: HPI History of Present Illness Date/Time: 12/16/22 08:23 Chief Complaint: Right ankle ulcer Narrative: [facility] outpatient wound clinic visit for right ankle ulcer. 6 months status post open reduction internal fixation right ankle fracture dislocation. Wound treated with debridement and graft application. No interim complaints. Review of Systems Constitutional: Constitutional: Reports no additional constitutional complaints, Denies chills, Denies fatigue, Denies fever(s), Denies headache(s) and Denies weakness Eyes: Eyes: Denies change in vision ENT: Reports Normal hearing present and Denies headache(s) Cardiovascular: Cardiovascular: Denies chest pain and Denies dyspnea Respiratory: Respiratory: Denies cough, Denies dyspnea and Denies wheezing Gastrointestinal: Gastrointestinal: Denies constipation, Denies diarrhea, Denies nausea and Denies vomiting Genitourinary: Genitourinary: Denies hematuria, Denies dysuria and Denies urinary urgency Musculoskeletal: Musculoskeletal: Reports as per HPI, Denies numbness and Denies tingling Integumentary/Breasts: Skin/Breast: Reports as per HPI Neurologic: Reports as per HPI, Reports Normal hearing present, Denies headache(s), Denies numbness, Denies tingling and Denies weakness Psychiatric: Psychiatric: Reports no additional psychiatric complaints Endocrine: Endocrine: Reports no additional endocrine complaints and Denies fatigue Hematologic/Lymphatic: Hematologic/Lymphatic: Reports no additional hematologic/lymphatic complaints Allergic/Immunologic: Allergic/Immunologic: Reports no additional allergic/immunologic complaints and Denies wheezing PMFSH Past Medical History Medical History Anxiety Arthritis Bipolar 1 disorder (Unknown) Bronchitis Chronic low back pain with bilateral sciatica Crohn's disease (~2007) DDD (degenerative disc disease) Depression Diarrhea Encounter for postoperative care Encounter to establish care Fibromyalgia Nausea & vomiting Normal colonoscopy Pancreatitis Right ankle sprain Shingles Skin tag Sleep disorder Stomach pain Stomach ulcer Ulcer of ankle UTI (urinary tract infection) Weight gain Surgical History Surgical History H/O bilateral cataract extraction H/O colectomy H/O dilation and curettage H/O tubal ligation History of bowel resection History of right hip replacement (~2006) Hx of appendectomy Family History Family History Mother Depression Suicide Nerve disorder Family history of mental disorder Bipolar disorder Father Gastric artery aneurysm Hypertension Sibling Hypertension Social History Social History Social History: Patient currently lives with her boyfriend, daughter and grand kid at home. Patient states that she smokes a half a pack a day and has smoked since she has been 13 years old. She reports rarely using alcohol but when she does drink she drinks [place] and orange juice. She denies drug use. Smoking packs per day: 1 Smoking cigarettes per day: 20.0 Years smoked: 30 Smoking pack-years: 30.00 Smoking status: Former smoker Tobacco type: cigarettes Alcohol intake: never Drinks per week: 1 Substance use: never Substance use type: does not use Lack of Transportation: No Lack of Food: Never True Current Housing: I Have Housing Concerned About Future Housing: No Difficulty Paying Gas/Electric Bills: No Difficulty Paying for Meds: No Currently Unemployed: No Education: High School Diploma/GED Difficulty w/ Childcare or Family Care: No Living arrangements: with family Gender identity (if verbalized by the patient): Female Spiritual care concerns: No Meds Home Medications and Allergies Home Medications Medication I
== END 2023-01-30 08:58 | disposition home or self-care (01) ==
LOC: ANHWOC 07:13
PROVIDERS: Visit Provider Nurse Practitioner Family
DX: Z48.89 Encounter for other specified surgical aftercare (principal); L97.309 Non-pressure chronic ulcer of unspecified ankle with unspecified severity
CPT/HCPCS: 99212; 99213; G0463

== ENCOUNTER 2022-12-30 08:00 | Outpatient (RCR) | payer OTHER, SELFPAY ==
--- NOTE | 2022-12-21 15:56 | PTOPEVAL1 ---
Assessment and note entered by Good Escobedo Evaluation Information Assessment Status Evaluation Diagnosis displaced trimalleolar fx of the right ankle Onset 05/11/22 Subjective Information Pt. reports that she broke her ankle in May. She states that she had surgery to fix the fracture. She reports having had complication with infection and underwent skin graft. She reports she was NWB for at least 2 months. She reports she was then placed into a boot for several months. She reports she currently without a boot, but has trouble putting a shoe on due to swelling. She reports that she has immediate pain with standing and has difficulty with putting weight on the right foot. She reports she can only stand for about 5-10 minutes due to pain. She reports she was active with yard work and performing house cleaning prior to her injury. She reports she cannot currently complete these tasks. She reports she has returned to driving. She reports that she requires use of a scooter with grocery shopping. She reports that her goal is to be able to go to the grocery store without having to use the electric cart. Reported Pain Level Pain Score 3: Self Report Assessment PT Clinical Summary Pt. is a 57 year old female who enters the clinic post right ankle fx with ORIF. She presents with impaired ROM, impaired strength, pain, hypersensitivity, impaired gait and functional decline. Continued skilled PT is indicated in order to improve these areas to allow the pt. to be able to complete all IADL's with improved comfort and efficiency. Plan of Care Interventions Electrical Stimulation,Gait Training,Hot Pack/Cold Pack,Intermittent Compression,Manual Therapy, Neuro Re-education,Patient/Caregiver Educati, Therapeutic Activities,Therapeutic Exercise PT Services Indicated Yes Treatment Frequency and 2x/week x 10 visits Duration These treatments will address the objective and functional deficits as defined above. The patient will be advanced safely and appropriately in order for the patient to progress towards his/her prior level of function. Additional exercises will be introduced and as well as a comprehensive home exercise program upon discharge, if needed, ?to ensure carryover of functional gains achieved in the clinic. This treatment plan has been reviewed and agreement upon by the patient.
--- NOTE | 2022-12-21 15:57 | OPREHPOC ---
Outpatient Therapy Plan of Care This is a Multidisciplinary Plan of Care that may contain components documented by all disciplines (PT, OT, and ST.) PT Problem 1 PT Problem #1 Knowledge Deficit PT Goal 1 Goal Pt. will be independent with a HEP addressing l.e. strength and mobility. Target Visit 2 PT Problem 2 PT Problem #2 Impaired Range of Motion PT Goal 1 Goal Pt. will achieve 55 degrees passive great toe extension, 15 degrees active ankle DF on right to improve gait mechanics. Target Visit 10 PT Problem 3 PT Problem #3 Impaired Gait PT Goal 1 Goal Pt. will ambulate with equal right and left stance time with less degree of toe out on right Target Visit 10 PT Problem 4 PT Problem #4 Impaired Functional Mobil PT Goal 1 Goal Pt. will report being able to walk through the grocery store without using the cart. Pt. will improve LEFS score by 30% or greater. Target Visit 10
--- NOTE | 2023-01-02 14:28 | PCPTNOTE ---
Patient called & cancelled scheduled appointment this date due to being sick.
--- NOTE | 2023-01-04 09:43 | PCPTNOTE ---
Pt. canceled 01/04/23 appointment noting that she was sick.
--- NOTE | 2023-01-09 09:14 | PCPTNOTE ---
pt did not show for today's appt; called and left voice message, with reminder of next appt 01-11-23;
--- NOTE | 2023-01-11 13:57 | PCPTNOTE ---
Pt. canceled 01/11/23 appointment stating that she was still sick.
--- NOTE | 2023-01-23 13:51 | PTOPDC ---
Assessment and note entered by Louis Rodgers, PT Evaluation Information Assessment Status Discharge - Pt Not Presen Diagnosis displaced trimalleolar fx of the right ankle Onset 05/11/22 Subjective Information Pt. reports that she broke her ankle in May. She states that she had surgery to fix the fracture. She reports having had complication with infection and underwent skin graft. She reports she was NWB for at least 2 months. She reports she was then placed into a boot for several months. She reports she currently without a boot, but has trouble putting a shoe on due to swelling. She reports that she has immediate pain with standing and has difficulty with putting weight on the right foot. She reports she can only stand for about 5-10 minutes due to pain. She reports she was active with yard work and performing house cleaning prior to her injury. She reports she cannot currently complete these tasks. She reports she has returned to driving. She reports that she requires use of a scooter with grocery shopping. She reports that her goal is to be able to go to the grocery store without having to use the electric cart. Assessment PT Clinical Summary Patient has failed to return to therapy and will be discharged at this time. Please refer to last treatment note for discharge status. Plan of Care PT Services Indicated Yes
--- NOTE | 2023-01-23 14:42 | PCPTNOTE ---
Pt. did not show for appointment again on 01/23/23 and PT was notified. Pt. will be discharged by PT.
== END 2023-01-24 08:39 | disposition home or self-care (01) ==
LOC: ANHPT 08:00
PROVIDERS: PCP Nurse Practitioner Family; Visit Provider Nurse Practitioner Family
DX: S82.851D Displaced trimalleolar fracture of right lower leg, subsequent encounter for closed fracture with routine healing (principal)
CPT/HCPCS: 97014; 97110; 97140; 97161; 97530; 99199; G0283

== ENCOUNTER 2023-10-22 18:22 | Emergency (ER) | payer OTHER, SELFPAY ==
--- NOTE | ~2023-10-22 | XR_ITS ---
EXAMINATION: XR ribs LT 2V w CXR 2V DATE: 10/22/2023 18:52 INDICATION: Chest pain. TECHNIQUE: Frontal and lateral views of the chest and 2 views on 3 radiographs of the left ribs were obtained. COMPARISON: Chest 2 views 10/12/2018 FINDINGS: CHEST TWO VIEWS: There is no pneumonia, pleural effusion, or pneumothorax. The heart size is normal. Surgical clips in the right upper quadrant are likely from cholecystectomy. There is mild chronic ant erior wedging of T12 vertebral body. LEFT RIBS: There is no left rib fracture. IMPRESSION: 1. No rib fracture. Reviewed, dictated and finalized at location E. IMPRESSION: 1. No rib fracture.
--- NOTE | ~2023-10-22 | CT_ITS ---
EXAMINATION: CT abdomen pelvis w con DATE: 10/22/2023 21:46 INDICATION: Abdominal pain. TECHNIQUE: Computed tomography (CT) of the abdomen and pelvis was performed with 100 mL Omnipaque 350 intravenous contrast. Automated exposure control and iterative reconstruction technique were employe d. The dose-length product was 1692.50 mGy-cm. COMPARISON: CT abdomen and pelvis 01/14/2020 FINDINGS: The lungs demonstrate mild atelectasis. No pleural effusion. The heart size is normal. No p ericardial effusion. The liver demonstrates surface nodularity, consistent with cirrhosis. There is a periumbilical portacaval shunt. There are changes of cholecystectomy. Paraesophageal varices are not ed. There is mild splenomegaly. The pancreas, adrenal glands, and kidneys are normal. There are no di lated loops of bowel. Again seen is a fistula between the terminal ileum and the ileocolic anastomosi s. There is chronic mild periportal lymphadenopathy, likely reactive. There is no free intraperitonea l fluid. There is a 10.0 x 6.3 cm heterogeneous mass in right ovary. There is a 4.7 cm mass in left o vary. There is moderate thoracic spondylosis and severe lower lumbar spondylosis. IMPRESSION: 1. New bilateral ovarian masses suspicious for metastatic disease. 2. Cirrhosis of the liver with portal venous hypertension. 3. 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 Reviewed, dictated and finalized at location E. IMPRESSION: 1. New bilateral ovarian masses suspicious for metastatic disease. 2. Cirrhosis of the liver with portal venous hypertension. 3. 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
[2023-10-22 18:23] VITALS: BP 145/80; PULSE 85; RESP 16; TEMP 36.4; O2SAT 99
[2023-10-22] MEDS: LIDOCAINE 5% PATCH 1 PATCH TRANSDERM (20:37)
[2023-10-22 21:35] LABS: Basophils Absolute Auto 0.1 K/mm3 (0.0-0.1); Basophils Percent Auto 0.7 % (0.2-1.2); Eosinophils Absolute Auto 0.6 K/mm3 (0-0.3); Eosinophils Percent Auto 5.9 % (0-4.4); Hematocrit 41.1 % (37.0-47.0); Hemoglobin 13.8 g/dL (12.0-15.0); Immature Granulocyte Absolute 0.05 K/mm3 (0.00-0.031); Immature Granulocyte Percent A 0.5 % (0-0.5); Lymphocytes Absolute Auto 1.88 K/mm3 (0.9-3.2); Mean Corpuscular HGB Conc 33.6 g/dl (32-36); Mean Corpuscular Hemoglobin 32.2 pg (26-34); Mean Platelet Volume 9.6 fl (7.4-10.4); Monocytes Absolute Auto 0.7 K/mm3 (0.1-0.6); Monocytes Percent Auto 6.9 % (2.6-8.5); Neutrophils Absolute Auto 6.7 K/mm3 (1.3-6.7); Platelet Count Result 260 k/mm3 (150-375); Red Blood Count 4.28 M/mm3 (4.2-5.4); Red Cell Distribution Width 14.7 % (11.5-14.5); White Blood Count 9.9 K/mm3 (4.5-10.0)
[2023-10-22 21:43] LABS: Estimated CRCL calculation 124 ml/min; Estimated Glomerular Filt Rate > 60
[2023-10-22 21:46] LABS: Anion Gap 9 mmol/L (4-12); Blood Urea Nitrogen 14 mg/dL (7-17); Calcium 8.3 mg/dL (8.4-10.2); Carbon Dioxide 27 mmol/L (22-30); Chloride 103 mmol/L (98-107); Estimated CRCL calculation 124 ml/min; Estimated Glomerular Filt Rate > 60; Glucose 107 mg/dL (65-110); Potassium 3.7 mmol/L (3.4-5.0); Sodium 139 mmol/L (137-145)
[2023-10-22 23:08] VITALS: BP 138/70; PULSE 89; RESP 16; O2SAT 97
--- NOTE | 2023-10-23 02:21 | ED.FALL ---
HPI - Fall General Chief Complaint: Fall Stated Complaint: fall on 10/17 L sided rib pain and L back Time Seen by Provider: 10/22/23 19:16 History of Present Illness HPI Narrative: Patient had a fall several days ago and has been having severe pain to her left abdomen, though she has bruises to both sides. Has been taking Tylenol and ibuprofen with only minimal improvement Related Data Home Medications Medication Instructions Recorded Confirmed risankizumab-rzaa 360 mg/2.4 mL mg subcut 06/21/23 (150 mg/mL) subcut wearable injector (Skyrizi) Allergies Allergy/AdvReac Type Severity Reaction Status Date / Time folic acid Allergy Mild BROKE OUT Verified 06/21/23 09:49 WITH RASH pyridoxine Allergy Mild Rash Verified 06/21/23 09:49 codeine Allergy Unknown Rash Verified 06/21/23 09:49 Penicillins Allergy Unknown Rash Verified 06/21/23 09:49 famotidine [From Pepcid] Allergy Itching Verified 06/21/23 09:49 pineapple AdvReac Severe THROAT Verified 06/21/23 09:49 CLOSED UP CALCIUM COMBINATION NO.1 Allergy Mild BROKE OUT Uncoded 06/21/23 09:49 WITH RASH Review of Systems Review of Systems: All systems reviewed & are unremarkable except as noted in HPI and below PMFSH Past Medical History Medical History (Updated 10/23/23 @ 00:01 by Ashkan Borjas) Anxiety Arthritis Bipolar 1 disorder (Unknown) Bronchitis Chronic low back pain with bilateral sciatica Crohn's disease (~2007) DDD (degenerative disc disease) Depression Diarrhea Encounter for postoperative care Encounter to establish care Fibromyalgia Morbid obesity Nausea & vomiting Normal colonoscopy Pancreatitis Right ankle pain Right ankle sprain Shingles Skin tag Sleep disorder Stomach pain Stomach ulcer Tobacco abuse Ulcer of ankle UTI (urinary tract infection) Weight gain Surgical History Surgical History H/O bilateral cataract extraction H/O colectomy H/O dilation and curettage H/O tubal ligation History of bowel resection History of right hip replacement (~2006) Hx of appendectomy Family History Family History Mother Depression Suicide Nerve disorder Family history of mental disorder Bipolar disorder Father Gastric artery aneurysm Hypertension Sibling Hypertension Social History Social History Social History: Patient currently lives with her boyfriend, daughter and grand kid at home. Patient states that she smokes a half a pack a day and has smoked since she has been 13 years old. She reports rarely using alcohol but when she does drink she drinks [place] and orange juice. She denies drug use. Smoking packs per day: 1 Smoking cigarettes per day: 20.0 Years smoked: 30 Smoking pack-years: 30.00 Smoking status: Current some day smoker Tobacco type: cigarettes Alcohol intake: never Drinks per week: 1 Substance use: never Substance use type: does not use Lack of Transportation: No Lack of Food: Never True Current Housing: I Have Housing Concerned About Future Housing: No Difficulty Paying Gas/Electric Bills: No Difficulty Paying for Meds: No Currently Unemployed: No Education: High School Diploma/GED Difficulty w/ Childcare or Family Care: No Living arrangements: with family Gender identity (if verbalized by the patient): Female Spiritual care concerns: No Exam Narrative: EXAMINATION OF ORGAN SYSTEMS/BODY AREAS: Constitutional: Vital signs per nursing GENERAL:[No acute distress, non-toxic appearing.] HEAD: Normal with no signs of head trauma. EYES: EOMI, conjunctiva normal ENT: Hearing grossly intact LUNGS: Nonlabored breathing. HEART: [Regular rate and rhythm] ABD: [Soft], [tender to palpation] bilateral upper abdomen EXT: Normal range of motion SKIN: Bruising to anterior abdomen NEURO:
== END 2023-10-22 23:09 | disposition home or self-care (01) ==
PROVIDERS: Emergency Provider Emergency Medicine; PCP Nurse Practitioner Family
DX: S20.213A Contusion of bilateral front wall of thorax, initial encounter (principal); K74.60 Unspecified cirrhosis of liver; N83.8 Other noninflammatory disorders of ovary, fallopian tube and broad ligament; E66.01 Morbid (severe) obesity due to excess calories; Z68.41 Body mass index [BMI] 40.0-44.9, adult; K50.90 Crohn's disease, unspecified, without complications; M19.90 Unspecified osteoarthritis, unspecified site; M79.7 Fibromyalgia; F17.210 Nicotine dependence, cigarettes, uncomplicated; Z96.641 Presence of right artificial hip joint; Z87.440 Personal history of urinary (tract) infections; Z98.42 Cataract extraction status, left eye; Z98.41 Cataract extraction status, right eye; Z90.49 Acquired absence of other specified parts of digestive tract; K76.6 Portal hypertension; W19.XXXA Unspecified fall, initial encounter
CPT/HCPCS: 36415; 71046; 71100; 74177; 80048; 85025; 99284; A9270; Q9967

== ENCOUNTER 2023-12-29 14:01 | Emergency (ER) | payer OTHER, SELFPAY ==
[2023-12-29 14:06] VITALS: BP 145/107; PULSE 80; RESP 20; TEMP 36.7; O2SAT 99
--- NOTE | 2023-12-29 15:17 | ED.EXTPRO ---
HPI - Extremity Problem General Chief complaint: Extremity Problem,Nontraumatic Stated complaint: swelling to extremities and pain Time Seen by Provider: 12/29/23 14:34 Source: patient and family (Daughter) Mode of arrival: ambulatory Limitations: no limitations History of Present Illness HPI Narrative: Patient presents complaint of swelling and extremity pain nearly everywhere except for her left thigh and knee. She denies any edema. This has been going on for approximately 2 months. She describes the pain as 10/10 severity. She has a history of Crohn's disease as well as fibromyalgia and arthritis. Denies any acute injury. Denies rash. She has been experiencing subjective fevers intermittently. Patient's home medication regimen include gabapentin, ibuprofen, paroxetine, tizanidine, cyclobenzaprine, and skyrizi. She is scheduled to have upcoming surgery due to an ovarian cyst and then follow up with her primary care physician after that. Related Data Home Medications Medication Instructions Recorded Confirmed risankizumab-rzaa 360 mg/2.4 mL mg subcut 06/21/23 12/21/23 (150 mg/mL) subcut wearable injector (Skyrizi) Allergies Allergy/AdvReac Type Severity Reaction Status Date / Time folic acid Allergy Mild BROKE OUT Verified 12/29/23 14:02 WITH RASH pyridoxine Allergy Mild Rash Verified 12/29/23 14:02 codeine Allergy Unknown Rash Verified 12/29/23 14:02 Penicillins Allergy Unknown Rash Verified 12/29/23 14:02 famotidine [From Pepcid] Allergy Itching Verified 12/29/23 14:02 pineapple AdvReac Severe THROAT Verified 12/29/23 14:02 CLOSED UP CALCIUM COMBINATION NO.1 Allergy Mild BROKE OUT Uncoded 12/29/23 14:02 WITH RASH PMFSH Past Medical History Medical History (Updated 12/31/23 @ 09:12 by Josie Marie MD) Abnormal CT of the abdomen Anxiety Arthritis Bilateral knee pain Bipolar 1 disorder (Unknown) Breast cancer screening Bronchitis Chronic low back pain with bilateral sciatica Crohn's disease (~2007) DDD (degenerative disc disease) Depression Diarrhea Fibromyalgia History of vaginal delivery Lung cancer screening declined by patient Morbid obesity Nausea & vomiting Normal colonoscopy Ovarian mass, left Ovarian mass, right Pancreatitis Rib pain on left side Right ankle pain Right ankle sprain Shingles Skin tag Sleep disorder Stomach pain Stomach ulcer Tobacco abuse Ulcer of ankle UTI (urinary tract infection) Weight gain Surgical History Surgical History H/O bilateral cataract extraction H/O colectomy H/O dilation and curettage H/O tubal ligation History of bowel resection History of right hip replacement (~2006) Hx of appendectomy Family History Family History Mother Depression Suicide Nerve disorder Family history of mental disorder Bipolar disorder Father Gastric artery aneurysm Hypertension Sibling Hypertension Social History Social History Social History: Patient currently lives with her boyfriend, daughter and grand kid at home. Patient states that she smokes a half a pack a day and has smoked since she has been 13 years old. She reports rarely using alcohol but when she does drink she drinks [place] and orange juice. She denies drug use. Smoking packs per day: 1 Smoking cigarettes per day: 20.0 Years smoked: 45 Smoking pack-years: 45.00 Smoking status: Current every day smoker Tobacco type: cigarettes Alcohol intake: never Drinks per week: 1 Substance use: never Substance use type: does not use Lack of Transportation: No Lack of Food: Never True Current Housing: I Have Housing Concerned About Future Housing: No Difficulty Paying Gas/Electric Bills: No Difficulty Paying for Meds: No Currently Unemployed: No Education: High School Diploma/GED
[2023-12-29 15:46] LABS: Basophils Absolute Auto 0.1 K/mm3 (0.0-0.1); Basophils Percent Auto 0.8 % (0.2-1.2); Eosinophils Absolute Auto 0.5 K/mm3 (0-0.3); Eosinophils Percent Auto 6.9 % (0-4.4); Hemoglobin 13.5 g/dL (12.0-15.0); Immature Granulocyte Absolute 0.02 K/mm3 (0.00-0.031); Immature Granulocyte Percent A 0.3 % (0-0.5); Lymphocytes Absolute Auto 1.29 K/mm3 (0.9-3.2); Lymphocytes Percent Auto 16.9 % (18.3-44.2); Mean Corpuscular HGB Conc 33.8 g/dl (32-36); Mean Corpuscular Hemoglobin 32.5 pg (26-34); Mean Corpuscular Volume 96.2 fl (80-100); Mean Platelet Volume 9.4 fl (7.4-10.4); Monocytes Absolute Auto 0.5 K/mm3 (0.1-0.6); Monocytes Percent Auto 6.6 % (2.6-8.5); Neutrophils Absolute Auto 5.2 K/mm3 (1.3-6.7); Neutrophils Percent Auto 68.5 % (45.5-73.1); Platelet Count Result 225 k/mm3 (150-375); Red Blood Count 4.16 M/mm3 (4.2-5.4); Red Cell Distribution Width 13.9 % (11.5-14.5); White Blood Count 7.6 K/mm3 (4.5-10.0)
[2023-12-29] MEDS: diazePAM (*CRX) 5 MG TABLET 2.5 MG PO (15:46)
[2023-12-29 16:02] LABS: Alanine Aminotransferase 15 U/L (6-35); Albumin Level 3.9 g/dL (3.5-5.1); Alkaline Phosphatase 65 U/L (38-126); Anion Gap 5 mmol/L (4-12); Aspartate Amino Transferase 25 U/L (14-36); Bilirubin,Total 0.4 mg/dL (0.2-1.3); Blood Urea Nitrogen 14 mg/dL (7-17); CRP 1.4 mg/dL (<1.0); Calcium 9.5 mg/dL (8.4-10.2); Carbon Dioxide 28 mmol/L (22-30); Chloride 106 mmol/L (98-107); Creatine Kinase 39 U/L (30-135); Estimated CRCL calculation 155 ml/min; Estimated Glomerular Filt Rate > 60; Glucose 92 mg/dL (65-110); Potassium 4.3 mmol/L (3.4-5.0); Sodium 139 mmol/L (137-145)
--- NOTE | 2023-12-29 16:54 | PC.NURSE ---
called lab and added on magnesium level.
[2023-12-29 16:56] LABS: Erythrocyte Sedimentation Rate 62 mm/hr (0-20)
[2023-12-29 17:03] LABS: Magnesium 1.9 mg/dL (1.6-2.3)
== END 2023-12-29 18:04 | disposition home or self-care (01) ==
PROVIDERS: Emergency Provider Student in an Organized Health Care Education/Training Program; PCP Nurse Practitioner Family
DX: M79.601 Pain in right arm (principal); M79.602 Pain in left arm; M79.604 Pain in right leg; R79.82 Elevated C-reactive protein (CRP); R70.0 Elevated erythrocyte sedimentation rate; K50.90 Crohn's disease, unspecified, without complications; M79.7 Fibromyalgia; E66.01 Morbid (severe) obesity due to excess calories; Z68.42 Body mass index [BMI] 45.0-49.9, adult; F41.9 Anxiety disorder, unspecified; F31.9 Bipolar disorder, unspecified; F17.210 Nicotine dependence, cigarettes, uncomplicated; Z96.641 Presence of right artificial hip joint; Z87.440 Personal history of urinary (tract) infections; Z98.42 Cataract extraction status, left eye; Z98.41 Cataract extraction status, right eye; Z90.49 Acquired absence of other specified parts of digestive tract; Z79.620 Long term (current) use of immunosuppressive biologic; Z79.899 Other long term (current) drug therapy
CPT/HCPCS: 36415; 80053; 82550; 83735; 85025; 85652; 86140; 99283; A9270

== ENCOUNTER 2024-02-28 15:39 | Outpatient (CLI) | payer OTHER, SELFPAY ==
[2024-02-28 16:29] LABS: Rheumatoid Factor 55.1 IU/ML (<12)
[2024-02-29 07:39] LABS: CRP, High Sensitivity 12.3 mg/L
[2024-03-01 04:14] LABS: ANA Cascade Screen NEGATIVE (NEGATIVE)
== END 2024-02-28 15:40 | disposition home or self-care (01) ==
LOC: ANHLAB 15:40
PROVIDERS: PCP Nurse Practitioner Family; Visit Provider Nurse Practitioner Family
DX: M25.50 Pain in unspecified joint (principal)
CPT/HCPCS: 36415; 86038; 86141; 86225; 86235; 86364; 86430

== ENCOUNTER 2025-01-31 09:12 | Outpatient (CLI) | payer OTHER, SELFPAY ==
--- NOTE | ~2025-01-31 | CT_ITS ---
EXAM/PROCEDURE: CT ankle RT wo con HISTORY: M25.571 - Pain in right ankle and joints of right foot COMPARISON: X-rays from January 15, 2025 TECHNIQUE: Noncontrast enhanced CT of the right ankle FINDINGS: Lateral distal fibular abutment plate with 8 cortical screws is intact with no gross hardware failure fracture loosening. A spiral/oblique fracture lucency through the distal fibula remains lucent with corticated margins. Medial malleolus fracture appears healed with 2 cancellus screws; the screws appear intact with no failure fracture lucency seen. No acute or aggressive bony or soft tissue process seen. IMPRESSION: Status post internal fixation for right ankle fracture; the distal fibular fracture lucency remains fully lucency with corticated margins. Medial malleolus fracture appears healed. The hardware appears intact with no gross loosening fracture or failure. Reviewed, dictated and finalized at location A. PLANT OPERATOR IMPRESSION: Status post internal fixation for right ankle fracture; the distal fibular frac ture lucency remains fully lucency with corticated margins. Medial malleolus fr acture appears healed. The hardware appears intact with no gross loosening frac ture or failure.
--- OUTSIDE RECORDS SUMMARY | 2025-01-31 09:17 | XMS_ITS | Patient Health Record ---
Author Organization [facility] Address [address] [place] [address] Care Team Providers Care Forensic Audit Expert Name Role Phone PadmaJames Primary Care Provider [phone] Allergies Allergen (clinical drug ingredient) Drug/Non Drug Allergy documented on EMR Reaction Allergy Type Onset Date Status heart burn medicatio n (uncoded) Unknown Allergy Active codeine Codeine Sulfate Unknown Drug Allergy A ctive penicillin G Penicillin G Sodium Unknown Drug Allergy Active ustekinumab Stelara Unknown Drug Allergy Activ e Reason For Referral No Information Medications Medication SIG (Take, Route, Frequency, Duration) Notes Start Date End Date Status LaMICtal 25 MG 2 tablets Orally Twi ce a day; Duration: 30 days Active SEROquel 100 MG 1 tablet Orally Once a day; Duration: 30 Active Sulfamethoxazole-TMP DS 800-160 MG 1 tablet Orally every 12 hours Active PROzac 10 MG 1 capsule Orally tricia ry morning; Duration: 30 Active Adams 7.5-325 MG 1 tablet as needed O rally every 6 hrs Active SEROquel 200 MG TWO TABLETS AT BEDTI ME ORALLY 30 DAYS; Duration: 30 Active Vistaril 50 MG 1 tablet Orally thre e times daily as needed; Duration: 30 days 11/03/2016 Active Social History Tobacco Use: Social History Observation Description Date Details (start date - stop date) Current Smoker NA - NA Dont use, Tobacco Use/Smoking Question Answer Notes Are you a current smoker How often do you smoke cigarettes? every day How many cigarettes a day do you smoke? 5 or les s How soon after you wake up d o you smoke your first cigarette? within 5 minutes Are you interested in quitting? Not ready to rohini t Additional Findings: Tobacco User Light cigarett e smoker ((1-9 cigs/day) Problems Problem Type SNOMED Code ICD Code Onset Dates Problem Status W/U Status Risk Notes Problem Recurrent major depression (56188085) Episode of recurrent major depressive disorder, unspecified depression episode severity (F33.9) Active confirmed Problem Bipolar disorder (86140541) Bipolar affective disorder, remission status unspecified (F31.9) Active confirmed Plan Of Treatment Future Test Test Name Order Date Drug Analysis, Unknown, Qual 11/03/2016 Insurance Providers Payer Name Payer Address Payer Phone Subscriber Number Group Number Insured Name Patient Relationship to Insured Coverage Start Date Coverage End Date [facility] Att Claims Department [address] [place] [address] [phone] [id number] Melania Laboy Self - patient is the insured 7 Medical (General) History Medical History History ICD Code Crohn's disease fibromyalgia Surgical History Surgery Date(Month/Year) intestine removal 2012 tubal ligation 1992 Hospitalization History Reason Date(Month/Year) 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
--- OUTSIDE RECORDS SUMMARY | 2025-01-31 09:17 | XMS_ITS | Clinical Summary ---
Author Organization [facility] Address [address] [place] [id number] Care Team Providers Care Electronic Installer Name Role Phone Unavailable Primary Care Provider Unavailabl e Social History Tobacco Use Types Packs/Day Years Used Date Smoking Tobacco: Never Assessed Comments Unknown Sex and Gender Information Value Date Recorded Sex Assigned at Not on file Legal Sex Female 9:08 PM CDT Gender Identity Not on file Sexual Orientation Not on file Plan of Treatment Health Maintenance Due Date Last Done Comments Cervical Cancer Screening Pa p Smear (Age 30 to 64) Every 3 Years 1963 Colorectal Cancer Screening Colonoscopy (10 Years) 1963 Annual Physical 1966 Hepatitis C 1981 DTaP, Tdap and Td Vaccines ( 1 - Tdap) 1982 Cervical Cancer Screening Pa p with HPV Testing (Age 30 to 64) Every 5 Years 1993 Cervical Cancer Screening with HPV 1993 Mammogram Screening 2003 Pneumococcal Vaccine: 50+ Ye ars (1 of 1 - PCV) 2013 Zoster Vaccines (1 of 2) 2013 COVID-19 Vaccine ( - 2024-2 6 season) 2024 Influenza Adult (#1) 2024 RSV Immunization or 60+ Years (1 - 1-dose 75+ series) 2038 Hepatitis A Vaccines Aged Out No long er eligible based on patient's age to complete this topic Meningococcal B Vaccine Aged Out No l onger eligible based on patient's age to complete this topic Meningococcal Vaccine Aged Out No bahman rhianna eligible based on patient's age to complete this topic RSV Immunizations Under 20 Months Aged Out No longer eligible based on patient's age to complete this topic Additional Health Concerns Infection Onset Date Last Indicated C. difficile 04/02/2018 04/02/2018
--- OUTSIDE RECORDS SUMMARY | 2025-01-31 09:17 | XMS_ITS | Encounter Summary ---
Author Organization [facility] Address [address] [facility] [address] [place] [address] Care Team Providers Care Steel Tier Name Role Phone Ashlie Swann RN Unavailable Unavailable Melissa Connell MD Primary Care Provider + [phone] Melissa Connell MD Primary Care Provider + [phone] Melissa Connell MD Primary Care Provider + [phone] Tahir Shah MD Primary Care Provider [phone] Melissa Connell MD Primary Care Provider + [phone] Naa Link MD Primary Care Provider [phone] Sharon Arthur MD Unavailable Sonya Mortensen MD Unavailable [phone] Romie Ryan MD Unavailable [phone] Sharon Arthur MD Unavailable Merline Coon SIGN LANGUAGE INTERPRETER-TRANSIT SURVEY WORKER Primary Care Provider Rema Pena DO Unavailable [phone] Sharon Arthur MD Primary Care Provider [phone] Alf Donato MD Unavailable [phone] Merline Coon SIGN LANGUAGE INTERPRETER-TRANSIT SURVEY WORKER Primary Care Provider Reason for Visit * Reason Onset Date Comments Appointment 06/10/2021 Encounter Details Date Type Department Care Team (Late st Contact Info) Description 06/10/2021 Telephone [facility] [address] [place] [address] Jammie Collins MD [address] [place] [address] Appointment Social History Tobacco Use Types Packs/Day Years Used Date Smoking Tobacco: Every Day Cigarettes Smokeless Tobacco: Never Alcohol Use Standard Drinks/Week Comments No 0 (1 standard drink = 0.6 oz pur e alcohol) Hunger Vital Sign Answer Date Recorded Within the past 12 months, y ou worried that your food would run out before you got the money to buy more. Patient declined Within the past 12 months, t he food you bought just didn't last and you didn't have money to get more. Patient declined 01/2020 Comments No Sex and Gender Information Value Date Recorded Sex Assigned at Not on file Legal Sex Female 8:12 AM CDT Gender Identity Not on file Sexual Orientation Not on file documented as of this encounter Functional Status * Is person deaf or have serious hearing difficulty? Answer Date of Assessment Author No 01/22/2020 6:42 PM Kelly Julian RN * Is person blind or have serious difficulty seeing? Answer Date of Assessment Author No 01/22/2020 6:42 PM Kelly Julian RN * Does person have serious difficulty walking/climbing stairs? Answer Date of Assessment Author No 01/22/2020 6:42 PM Kelly Julian RN * Does person have difficulty dressing/bathing? Answer Date of Assessment Author No 01/22/2020 6:42 PM Kelly Julian RN * Does person have difficulty doing errands alone? Answer Date of Assessment Author No 01/22/2020 6:42 PM Kelly Julian RN documented as of this encounter Mental Status * Does person have difficulty concentrating/remembering/making decisions? Answer Entry Date Author No 01/22/2020 6:42 PM Kelly Julian RN documented in this encounter Miscellaneous Notes * Telephone Encounter - Rupal Callaway RN - 06/11/2021 1:06 PM CDT Patient had an US and office visit with Dr Collins yesterday that was a no show. Will call patient next week to reschedule * Telephone Encounter - Bindu Dia - 06/10/2021 11:03 AM CDT Pt is needing to reschedule her TVUS and Appointment with Dr. Collins and next available was too far out for her. CB# [phone] documented in this encounter Plan of Treatment Upcoming Encounters Date Type Department Care Team (Late st Contact Info) Description 03/26/2025 11:00 AM DOLL REPAIRER Office Visit [facility] - Rheumatology [address] [place] [address] [place] [address] Yanni Villaseñor MD [address] [place] [address] [place] [phone] 07/28/2025 8:30 AM CDT Office Visit [facility] - GI [address] [place] [address] [place] [phone] Jyoti Gillis MD [address] [place] [phone] documented as of this encounter Goals Goal Patient Goal Type Associated Problems Recent Progress Patient-Stated? Author Medication Management General On track( 025 3:14 PM DOLL REPAIRER) No Tori Nick, RN Note: Expected end date: Ongoing Interventions: Take all medications as prescribed Let your doctor know right away about any changes in your medications Make sure to request a refill of your medication at least one week prior to your last dose Mobility General On track( 025 8:44 AM CDT) No Tanika Waterman, RN Note: Expected end date: 12/11/2019 The goal is to maintain or improve your mobility at the optimum level for you. 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 Source: [facility] - [facility]. 01/12/12; 04/02/18 04/02/2018 CDIFF Under Investigation 12/28/2021 12/30/2021 10:22 PM CDT CDIFF Under Investigation 01/10/2023 01/10/2023 3:49 PM CDT CDIFF Under Investigation 04/15/2024 04/15/2024 11:27 PM DOLL REPAIRER documented as of this encounter Care Teams Steel Tier Relationship Specialty Start Date End Date Melissa Connell MD [address] [place] [phone] PCP - General 04/21/21 08/30/21 Melissa Connell MD [address] [place] [phone] PCP - General 08/31/21 12/27/21 Melissa Connell MD [address] [place] [phone] PCP - General 12/28/21 12/29/21 Tahir Shah MD [address] [place] [address] PCP - General 12/30/21 01/02/22 Melissa Connell MD [address] [place] [phone] PCP - General 01/03/22 07/05/22 Naa Link MD [address] [facility] [address] DIV OF [facility] [place] [phone] PCP - General 07/06/22 10/26/22 Merline Coon, SIGN LANGUAGE INTERPRETER-TRANSIT SURVEY WORKER [address] [place] [phone] PCP - General Nurse Practitioner 02/13/23 05/02/23 Rema Pena DO [facility] [facility] [address] DIV OF [facility] [place] [address] PCP - [facility] Medicaid [employer] 01/11/23 Sharon Arthur MD [facility] [place] [address] PCP - General Internal Medicine 05/03/23 10/08/23 Merline Coon, SIGN LANGUAGE INTERPRETER-TRANSIT SURVEY WORKER [address] [place] [phone] PCP - General Nurse Practitioner 10/09/23 Ashlie Swann, FARAZ Registered Nurse Gastroenterology 09/21/17 Sharon Arthur MD [address] [place] [address] Resident - PCP Internal Medicine 10/19/22 10/08/23 Sonya Mortensen MD [address] [facility] [address] [place] [address] Computer Systems Analyst Gastroenterology 10/19/22 Romie Ryan MD [address] [place] [phone] Orthopedic Surgery 10/19/22 Sharon Arthur MD [address] [place] [address] Resident Internal Medicine 10/27/22 10/08/23 Alf Donato MD [address] [facility] [address]L [place] [address] Dermatology 05/10/23 Sharon Arthur Primary Care Provider 10/27/22 10/27/22 documented as of this encounter
--- OUTSIDE RECORDS SUMMARY | 2025-01-31 09:17 | XMS_ITS | Clinical Summary ---
Author Organization [facility] Address [address] [place] [address] Care Team Providers Care Ichthyology Teacher Name Role Phone Ashlie Swann RN Unavailable Unavailable Sonya Mortensen MD Unavailable Romie Ryan MD Unavailable [phone] Rema Pena DO Unavailable [phone] Alf Donato MD Unavailable [phone] Merline Coon CANOE INSPECTOR-TANKAGE GRINDER OPERATOR Primary Care Provider Source Comments [facility],non-owned Affiliates and Associated Physician Practices is amultiple site organization consisting of ambulatory clinics and hospital sitesin [place], [place], [place] and [place]. This disclosure is being madepursuant to the Care Everywhere program and may not contain all information available regarding this patient. Last updated 17.[facility] Allergies Active Allergy Reactions Criticality Noted Date Comments Calcium Rash Medium 12/29/2023 Codeine Urticaria High 01/13/2016 Lip swelling Esomeprazole Rash High 01/13/2016 Famotidine Itching Medium 12/29/2023 Folic Acid Rash Medium 12/29/2023 Omeprazole Rash High 01/13/2016 Penicillin G Rash,Dizziness High 01/12/2022 Penicillins Urticaria High 01/13/2016 Pineapple Anaphylaxis High 01/13/2016 Pyridoxine Rash Medium 12/29/2023 Ranitidine Rash High 01/13/2016 Ultimate Fat Burner Unknown Medium 08/08/2024 Ustekinumab Unknown High 08/08/2024 Medications * This document contains information received from the source organization and may not represent a complete record from that organization. * Be aware that medications may not be up to date on this document. Alwaysverify current medications with the patient. melatonin 10 MG capsule Take 1 (one) capsule by mouth at bedtime Active vitamin D3 (Cholecalcifero l) 25 MCG (1000 UNITS) tablet Take 1 (one) tablet by mouth once daily Active ammonium lactate (Lac-Hydrin) 12 % lotion Apply to affected area twice daily--dry areas. 30 DS 400 g 11 024 Active ibuprofen (Motrin) 800 MG tablet Take 1 (one) tablet by mouth 3 times daily as needed For pain. 024 Active acetaminophen (Tylenol) 325 MG tablet TAKE 2 TABLETS BY MOUTH EVERY 8 HOURS NEEDED FOR PAIN 024 Active folic acid (Folvite) 1 MG tablet Take 1 (one) tablet by mouth once daily 90 tablet 4 025 Active ondansetron, disintegrating, (Zofran ODT) 4 MG tabletIndicatio ns:Epigastric pain,Crohn's disease of both small and large intestine without complication (HCC) Take 1 (one) tablet by mouth every 8 hours as needed for Nausea/Vomiting 30 tablet 2 025 Active methotrexate 2.5 MG tablet Take 10 (ten) tablets by mouth every 7 days (once a week) 128 tablet 1 025 Active azelastine (Optivar) 0.05 % ophthalmic solution Instill 1 (one) drop into both eyes 2 times daily 025 Active ondansetron (Zofran) 4 MG tablet Take 1 (one) tablet by mouth every 8 hours 025 Active fluticasone propionate (Flonase) 50 MCG/ACT nasal spray [place] 2 (two) sprays into each nostril 2 times daily 025 Active traZODone (Desyrel) 50 MG tablet Take 1 (one) tablet by mouth at bedtime 025 Active risankizumab-rz aa (Skyrizi) 360 MG/2.4ML SOCTIndications :Crohn's Disease Inject 2.4 mL subcutaneously every 28 days Reasons: Crohn's Disease 2.4 mL 3 025 Active budesonide (Entocort EC) [address] capsuleIndicati ons:Crohn's Disease Take 3 (three) capsules by mouth once daily Reasons: Crohn's Disease 84 capsule 025 2024 Active risankizumab-rz aa (Skyrizi) 360 MG/2.4ML SOCTIndications :Crohn's disease of small intestine with complication (HCC) Inject 2.4 mL subcutaneously Every 8 Weeks 2.4 mL 3 025 2024 Discontinued sucralfate (Carafate) 1 GM/10ML suspensionIndic ations:Epigastr ic pain Take 10 mL by mouth 4 times daily as needed 414 mL 1 025 2024 Discontinued(T x Complete) bisacodyl EC (Dulcolax) 5 MG tabletIndicatio ns:Constipation Take 2 (two) tablets by mouth once for 1 dose Reasons: Constipation 2 tablet 025 2024 Active Problems Problem Noted Date Diagnosed Date Bilateral ovarian cysts 05/10/2023 Inflamed seborrheic keratosis 04/09/2023 Seborrheic keratoses 04/09/2023 Melanocytic nevi of trunk 04/09/2023 Neoplasm of uncertain behavior of skin Solar lentiginosis 04/09/2023 Crohn's disease with other c omplication, unspecified gastrointestinal tract location 01/10/2023 Abnormal cardiovascular stress test 03/09/2022 01/30/2023 Bipolar disorder 01/12/2022 01/30/2023 Chest pain 01/12/2022 01/30/2023 Tobacco dependence syndrome 01/12/202201/12 Obesity 01/12/2022 01/30/2023 Pain of right heel 09/01/2020 Dry skin 08/31/2020 Biliary pain 01/22/2020 Abdominal pain, epigastric 06/18/2019 Crohn's disease with complication 04/12/2019 Abdominal pain, generalized 06/08/2018 Lumbar radiculopathy 06/21/2017 Polyneuropathy 04/26/2017 Dizziness 04/26/2017 Pain in joint 08/18/2016 Crohn's disease of both smal l and large intestine with fistula 03/13/2016 Resolved Problems Problem Noted Date Diagnosed Date Resolved Date Elevated troponin 01/11/2023 05/10/2023 Nausea and vomiting 08/28/2019 05/10/19 24 Vitamin B12 deficiency 04/26/201705/10 Non-intractable vomiting Encounters Date Type Department Care Team Description 01/27/2025 3:30 PM FITTING SUPERVISOR Office Visit [facility] - GI [address] [place] [phone] Jyoti Gillis MD Crohn's disease of small intestine with complication (HCC) (Primary Dx) 01/27/2025 Travel 12/27/2024 8:00 AM CDT - 12/27/2024 11:59 PM CDT Hospital Encounter [facility] [address] [place] [phone] Jyoti Gillis MD Discharge Disposition: Home or Self Care 12/16/2024 Orders Only [facility] [address] [place] [address] [phone] Jyoti Gillis MD Crohn's disease of both small and large intestine without complication (HCC) 12/12/2024 Telephone [facility] - Nephrology [address] [place] [phone] Moira Watson RN Pain Abdominal 12/11/2024 6:20 PM CDT - 12/12/2024 1:00 AM CDT Emergency [facility] [address] [place] [phone] Discharge Disposition: Left Against Medical Advice/Discontinued Care 12/11/2024 Travel 12/11/2024 Telephone [facility] [address] [place] [phone] Rebeka Brown RN General 12/02/2024 Telephone [facility] [address] [place] [address] [phone] Christina Huitron, RN Appointment (Sooner appointment per Dr. Rosario Sabillon.) 12/02/2024 Telephone [facility] - Nephrology [address] [place] [phone] Estelle Fabian, RN Concerns 11/13/2024 11:20 AM CDT Office Visit [facility] - Rheumatology [address] [place] [phone] Yanni Villaseñor MD Seropositive rheumatoid arthritis (HCC) (Primary Dx); Immunosuppression due to drug therapy (HCC); Crohn's disease of both small and large intestine with fistula (HCC); Therapeutic drug monitoring 11/13/2024 Travel 11/12/2024 Telephone [facility] [address] [place] [phone] Jyoti Gillis MD Medication Prior Auth Request 11/07/2024 Orders Only [facility] [address] [place] [phone] Rosario Sabillon MD Epigastric pain; Crohn's disease of both small and large intestine without complication (HCC) 11/07/2024 Telephone [facility] [address] [place] [phone] Jyoti Gillis MD Medication Prior Auth Request 11/04/2024 8:30 AM CDT [facility] Visit [facility] - [facility] [address] [place] [phone] Jyoti Gillis MD Epigastric pain (Primary Dx); Internal hemorrhoids; Bile salt-induced diarrhea (HCC); Crohn's disease of both small and large intestine without complication (HCC) 11/04/2024 Travel from Last 3 Months Immunizations Immunization Administration Dates Next Due Kormeli primary monoval ent 12+ yr 0.3mL Purple cap 06/24/2020,06/03/2020 INFLUENZA VACCINE 12/26/2019 INFLUENZA VACCINE, QUADR. (A FLURIA, FLUZONE QUADRIVALENT; 6MO+) (IIV4) 01/12/2017 INFLUENZA VACCINE, QUADR. (F LUZONE; FLULAVAL; FLUARIX; AFLURIA QUADRIVALENT; 6MO+), 0.5 ML (IIV4) 12/30/2020,12/26/2019,12/31/2018,2017 PNEUMOCOCCAL PCV20 CONJ VAC IM 10/19/2022 TDAP, HISTORIC VACCINE 10/12/2015 iNFLUENZA VACCINE, RECOM-GOULD, QUADR. (FLUBLOCK QUADRIVALENT; 18Y+) (RIV4) 02/28/2022 Family History Medical History Relation Name Comments Heart Failure Daughter Aneurysm, Aortic Father Other Father stomach aneurys m; Status: ADD/ADHD Mother Relation Name Status Comments Daughter Father Mother Social History Tobacco Use Types Packs/Day Years Used Date Smoking Tobacco: Every Day Cigarettes 0.5 Last attempted to quit: 11/2021 Smokeless Tobacco: Never Tobacco Cessation:Ready to Q uit: Not Asked; Counseling Given: Not Answered Comments:1-2 cigarettes daily Alcohol Use Standard Drinks/Week Comments Not Currently 0 (1 standard drink = 0.6 oz pur e alcohol) AUDIT-C Answer Date Recorded Q1: How often do you have a drink containing alc ohol? Never 01/11/2023 Q2: How many drinks containi ng alcohol do you have on a typical day when you are drinking? 1 or 2 01/11/2023 Q3: How often do you have six or more drinks on one occasion? Never 01/11/2023 Overall Financial Resource Strain (CARDIA) Answe r Date Recorded How hard is it for you to pa y for the very basics like food, housing, medical care, and heating? Not very hard 01/12/2023 PHQ-2 Answer Date Recorded Patient Health Questionnaire-2 Score 0 08/08/2024 [facility] Occupat ional [facility] - Occupational Stress Questionnaire Answer Date Recorded Do you feel stress - tense, restless, nervous, or anxious, or unable to sleep at night because your mind is troubled all the time - these days? Not at all 01/12/2023 Hunger Vital Sign Answer Date Recorded Within the past 12 months, y ou worried that your food would run out before you got the money to buy more. Patient declined Within the past 12 months, t he food you bought just didn't last and you didn't have money to get more. Never true 04/2022 PRAPARE - Transportation Answer Date Re corded In the past 12 months, has l ack of transportation kept you from medical appointments or from getting medications? No 04/2022 In the past 12 months, has l ack of transportation kept you from meetings, work, or from getting things needed for daily living? No 01/12/2023 Housing Stability Vital Sign Answer Raymundo e Recorded In the last 12 months, was t here a time when you were not able to pay the mortgage or rent on time? No 01/12/2023 In the last 12 months, how many places have you lived? 1 01/12/2023 In the last 12 months, was t here a time when you did not have a steady place to sleep or slept in a halfway (including now)? No 01/12/2023 Comments No Sex and Gender Information Value Date Recorded Sex Assigned at Not on file Legal Sex Female 8:12 AM CDT Gender Identity Not on file Sexual Orientation Not on file Last Filed Vital Signs Vital Sign Reading Time Taken Comments Blood Pressure 111/74 01/27/2025 3:24 PM FITTING SUPERVISOR Pulse 74 01/27/2025 3:24 PM FITTING SUPERVISOR Temperature 36.3 C (97.4 F) 12/11/2024 6:23 PM CDT Respiratory Rate 16 12/11/2024 6:23 PM CDT Oxygen Saturation 100% 01/27/2025 3:24 PM FITTING SUPERVISOR Inhaled Oxygen Concentration 40% 01/27/2020 1 :40 PM FITTING SUPERVISOR Weight 103 kg (227 lb) 01/27/2025 3:24 PM FITTING SUPERVISOR Height 162.6 cm (5' 4) 01/27/2025 3:24 PM FITTING SUPERVISOR Body Mass Index 38.96 01/27/2025 3:24 PM FITTING SUPERVISOR Plan of Treatment Upcoming Encounters Date Type Department Care Team (Late st Contact Info) Description 03/26/2025 11:00 AM FITTING SUPERVISOR Office Visit [facility] - Rheumatology [address] [place] [address], [place] [phone] Yanni Villaseñor MD [address] [place] [address] [place] [phone] 07/28/2025 8:30 AM CDT Office Visit [facility] - [facility] [address] [facility] [place] [phone] Jyoti Gillis MD [address] [place] [phone] Health Maintenance Due Date Last Done Comments COLOGUARD (AGES 45-75) - COLON CA SCREENING 1963 CT COLONOGRAPHY - COLON CA SCREENING 1965 FIT - COLON CA SCREENING 1965 FLEX SIG - COLON CA SCREENING 1965 MAMMOGRAM 1963 ZOSTER VACCINE (1 of 2) 1982 Respiratory Syncytial Virus (RSV) Vaccine Pt: or over 60 yrs (1 - Risk 50-74 years 1-dose series) 2013 PAP SMEAR 05/04/2024 05/04/2021 COVID-19 VACCINE ( season) 2024 06/24/2020, 06/03/2020, 05/12/2020 INFLUENZA VACCINE (#1) 2024 2, 12/30/2020, 12/26/2019, Additional history exists DTAP/TDAP/TD VACCINES (2 - Td or Tdap) 10/11/2025 10/12/2015 Cervical Cancer Screening 05/04/2026 PAP with HPV 05/04/2026 05/04/2021 SCREENING FOR DIABETES 09/20/2027 , 04/15/2024, 01/05/2024, Additional history exists LIPID TESTING 02/14/2028 02/13/2023, 03/21/2022 COLON MONITORING 10/10/2033 10/11/2023, , 01/18/2023, Additional history exists COLONOSCOPY - COLON CA SCREENING 10/10/2033 10/11/2023, 10/11/2023, 01/18/2023, Additional history exists Colorectal Cancer Screening 10/10/2033 HIV SCREENING Completed 11/28/2018 PNEUMOCOCCAL VACCINE 50+ Completed 10/19/2022 HEPATITIS C SCREENING Completed 09/19/2024 , 06/06/2024, 08/19/2016 HEPATITIS B VACCINE Aged Out No longe r eligible based on patient's age to complete this topic HIB VACCINE Aged Out No longer eligi ble based on patient's age to complete this topic HPV VACCINE Aged Out No longer eligi ble based on patient's age to complete this topic MENINGOCOCCAL (Group B) VACCINE SHARED DECISION-MAKING Aged Out No longer eligible based on patient's age to complete this topic MENINGOCOCCAL GROUPS A/C/Y/W VACCINE Aged Out No longer eligible based on patient's age to complete this topic Goals Goal Patient Goal Type Associated Problems Recent Progress Patient-Stated? Author Medication Management General On track( 3:14 PM FITTING SUPERVISOR) No Tori Nick, RN Note: Expected end date: Ongoing Interventions: Take all medications as prescribed Let your doctor know right away about any changes in your medications Make sure to request a refill of your medication at least one week prior to your last dose Mobility General On track( 8:44 AM CDT) No Tanika Waterman, RN Note: Expected end date: 12/11/2019 The goal is to maintain or improve your mobility at the optimum level for you. Interventions: Safety General On track( 3:14 PM FITTING SUPERVISOR) No Melanie Randhawa RN Note: Expected end date: ongoing Interventions: Keep personal items within easy reach Use some light at night in your room Keep walking paths clutter free and clear Procedures Procedure Name Priority Date/Time Associated Diagnosis Comments CT ENTEROGRAPHY Routine 12/27/2024 9:03 AM CDT Crohn's disease of both small and large intestine without complication (HCC) ISTAT CREATININE Routine 12/27/2024 8:34 AM CDT HEPATITIS C AB W/RFLX TO HCV RNA QN PCR 09/19/2024 1:38 PM CDT COMPREHENSIVE METABOLIC PANEL Routine 09/19/2024 1:31 PM CDT Crohn's disease of both small and large intestine without complication (HCC) ENDOSCOPY, COLON, DIAGNOSTIC Routine 10/11/2023 1:15 PM CDT LIPID PROFILE Routine 02/13/2023 11:05 AM FITTING SUPERVISOR Encounter for screening for cardiovascular disorders PAP IMAGE-GUIDED W HPV Routine 05/04/2021 1:53 PM FITTING SUPERVISOR Bilateral ovarian cysts HPV DETECTION HIGH RISK FEDERICO Routine 05/04/2021 1:53 PM FITTING SUPERVISOR Bilateral ovarian cysts HIV-1 HIV-2 ANTIGEN/ANTIBODY STAT 11/28/2018 11:59 AM CDT from Last 3 Months or Most Recently Relevant to Health Maintenance Results * CT Enterography (12/27/2024 9:03 AM CDT) Anatomical Region Laterality Modality Abdomen, Pelvis Computed Tomogra phy 12/27/2024 9:40 AM CDT Impressions 12/27/2024 11:08 AM CDT Impression: 1.Ileocolic anastomosis is reidentified. There is is symmetric mucosal enhancement of the terminal ileum without significant mural thickening could suggest residual inflammatory changes, compared to previous CT examination the enhancement is slightly less in the current study. No associated soft tissue stranding, congested vessels or lymph node enlargement to suggest active inflammation. 2.Diffuse colonic mucosal thickening and enhancement is noted predominantly in the distal descending colon and sigmoid associated with mildly congested adjacent vascular structures could suggest inflammatory changes. These findings are suggesting colitis and it is slightly more prominent compared to previous study. 3.No definite fistula or sinus tracts are identified in the relation to the bowel loops. No suggestion of perianal fistulas. 4.Diffuse steatosis of the liver. There is suggestion of underlying cirrhotic changes. No focal lesions in the liver. No biliary dilation seen. 5.A few enlarged peripancreatic and logan hepatis lymph nodes are reidentified. > Dictated by Winchman/Crane Operator I, Vanessa Saenz MD have personally reviewed and interpreted this examination/study. > Interpreting Provider: Vanessa Saenz MD on 12/27/2024 11:08 AM Narrative 12/27/2024 11:08 AM CDT PROCEDURE: CT ENTEROGRAPHY, DATE/TIME OF EXAM: 12/27/2024 9:05 AM, LOCATION [facility] INDICATION: K50.80: Crohn's disease of both small and large intestine without complication (HCC) ADDITIONAL CLINICAL INFORMATION: Ordering Provider Reason For Exam: Crohn's assessment Technologist Note: Additional: COMPARISON: Prior CT enterography on 05/10/2024 TECHNIQUE: CT of the abdomen and pelvis was performed following the uneventful administration of 100 mL of Isovue 370 intravenous contrast according to an enterography protocol. Findings: Lower Chest: Relatively unchanged sub 0.4cm pulmonary nodule in the right lower lobe. Liver: Diffusely hypoattenuation of the liver suggesting hepatic steatosis. There is suggestion of mildly nodular outline, hypertrophy of the caudate lobe and widening of the hepatic fissure indicating underlying cirrhotic changes. No focal hepatic parenchymal lesions are identified. Gallbladder and Bile Ducts: The gallbladder is absent, with postsurgical changes of cholecystectomy. Spleen: Normal. Pancreas: Normal. Adrenals: 1 cm left adrenal nodule, appear stable in size since prior. Kidneys: Normal. Gastrointestinal: Distention of the proximal, mid, and distal small bowel is adequate. Stomach: The stomach is normal. Small Bowel: Previously suspected small bowel to small bowel fistula is not well appreciated on today's study. Vickie-Terminal Ileum: Decompressed, asymmetric mucosal enhancement noted without significant mural thickening (image 42 series 4). No luminal narrowing or proximal bowel dilation seen. Strictures/Fistulas: No fistulous or sinus tracts seen. No loculated fluid collection or abscess. Colon: Changes of ileocecal resection with anastomosis. There is increased diffuse large bowel thickening extending from the region of the rectum, now all the way to the region of the ileocecal resection with anastomosis. Changes are predominantly seen in the distal descending colon and sigmoid. There is also notable increased vascular prominence beginning at the level of the ascending colon to the region of the ileocecal resection with anastomosis, likely secondary to inflammation. Appendix: Not visualized. Mesentery/Peritoneum/Retroperitoneum: Multiple peripancreatic and logan hepatis lymph nodes, not changed from previous study. GI Vasculature: Vasa Recta: No significant engorgement. Celiac, SMA, ADRIENNE: Patent with no evidence of stenosis. Bladder: Normal. Reproductive Organs: Normal Vasculature: The aorta and its branching vessels appear normal. Bones: Bone windows demonstrate no suspicious lytic or blastic lesions. The visible osseous structures are intact. Degenerative changes are seen in the spine. Soft tissues: The soft tissues of the body wall appear normal. Procedure Note Vanessa Saenz MD - 12/27/2024 PROCEDURE: CT ENTEROGRAPHY, DATE/TIME OF EXAM: 12/27/2024 9:05 AM, LOCATION [facility] INDICATION: K50.80: Crohn's disease of both small and large intestine without complication (HCC) ADDITIONAL CLINICAL INFORMATION: Ordering Provider Reason For Exam: Crohn's assessment Technologist Note: Additional: COMPARISON: Prior CT enterography on 05/10/2024 TECHNIQUE: CT of the abdomen and pelvis was performed following the uneventful administration of 100 mL of Isovue 370 intravenous contrast according to an enterography protocol. Findings: Lower Chest: Relatively unchanged sub 0.4cm pulmonary nodule in the right lower lobe. Liver: Diffusely hypoattenuation of the liver suggesting hepatic steatosis.There is suggestion of mildly nodular outline, hypertrophy of the caudate lobe and widening of the hepatic fissure indicating underlying cirrhotic changes. No focal hepatic parenchymal lesions are identified. Gallbladder and Bile Ducts: The gallbladder is absent, with postsurgical changes of cholecystectomy. Spleen: Normal. Pancreas: Normal. Adrenals: 1 cm left adrenal nodule, appear stable in size since prior. Kidneys: Normal. Gastrointestinal: Distention of the proximal, mid, and distal small bowel is adequate. Stomach: The stomach is normal. Small Bowel: Previously suspected small bowel to small bowel fistula isnot well appreciated on today's study. Vickie-Terminal Ileum: Decompressed, asymmetric mucosal enhancement noted without significant mural thickening (image 42 series 4). No luminal narrowing or proximal bowel dilation seen. Strictures/Fistulas: No fistulous or sinus tracts seen. No loculatedfluid collection or abscess. Colon: Changes of ileocecal resection with anastomosis. There isincreased diffuse large bowel thickening extending from the region of the rectum,now all the way to the region of the ileocecal resection with anastomosis. Changes are predominantly seen in the distal descending colon andsigmoid. There is also notable increased vascular prominence beginning at thelevel of the ascending colon to the region of the ileocecal resection with anastomosis, likely secondary to inflammation. Appendix: Not visualized. Mesentery/Peritoneum/Retroperitoneum: Multiple peripancreatic and logan hepatis lymph nodes, not changed from previous study. GI Vasculature: Vasa Recta: No significant engorgement. Celiac, SMA, ADRIENNE: Patent with no evidence of stenosis. Bladder: Normal. Reproductive Organs: Normal Vasculature: The aorta and its branching vessels appear normal. Bones: Bone windows demonstrate no suspicious lytic or blastic lesions. The visible osseous structures are intact. Degenerative changes are seen inthe spine. Soft tissues: The soft tissues of the body wall appear normal. Impression: 1.Ileocolic anastomosis is reidentified. There is is symmetric mucosal enhancement of the terminal ileum without significant mural thickening could suggest residual inflammatory changes, compared to previous CT examination the enhancement is slightly less in the current study. No associated soft tissue stranding, congested vessels or lymph node enlargement to suggest active inflammation. 2.Diffuse colonic mucosal thickening and enhancement is notedpredominantly in the distal descending colon and sigmoid associated with mildlycongested adjacent vascular structures could suggest inflammatory changes. These findings are suggesting colitis and it is slightly more prominentcompared to previous study. 3.No definite fistula or sinus tracts are identified in the relation tothe bowel loops. No suggestion of perianal fistulas. 4.Diffuse steatosis of the liver. There is suggestion of underlying cirrhotic changes. No focal lesions in the liver. No biliary dilationseen. 5.A few enlarged peripancreatic and logan hepatis lymph nodes are reidentified. > Dictated by Winchman/Crane Operator I, Vanessa Saenz MD have personally reviewed and interpreted this examination/study. > Interpreting Provider: Vanessa Saenz MD on 511:08 AM us Jyoti Gillis MD CT ORDERABLES Final Result * ISTAT CREATININE (12/27/2024 8:34 AM CDT) Creatinine POCT 0.60 0.60 - 1.30 mg/dL 12/27/2024 8:36 AM CDT [facility] eGFR by CKD-EPI >90 >90 mL/min/1.7 3 m2 12/27/2024 8:36 AM CDT [facility] Sample iSTAT ARTHUR 12/27/2024 8:36 AM CDT [facility] Blood BLOOD SPECIMEN / Unknown 12/27/2024 8:34 AM CDT 12/27/2024 8:35 AM CDT Jyoti Gillis MD LAB - POINT OF CARE ORDERABLES Final Result Performing Organization Address City/[facility]/ZIP Co de Phone Number [facility] [address] [place] [address], [facility] [phone] * HEPATITIS C AB W/RFLX TO HCV RNA QN PCR (09/19/2024 1:38 PM CDT) Pathologist [facility] Hepatitis C Antibody NON-REACTI VE NON-REACT REMIGIO PAAY Comment: HCV antibody was non-reactive. There is no laboratory evidence of HCV infection. In most cases, no further action is required. However, if recent HCV exposure is suspected, a test for HCV RNA (test code 28564) is suggested. For additional information please refer to http://education.[employer]/faq/RQY65n7 (This link is being provided for informational/ educational purposes only.) Test Performed at: [facility] [address] [place] [address] AUNG CADET MD 09/19/2024 1:38 PM CDT 09/19/2024 1:40 PM CDT us Yanni Villaseñor MD LAB - CHEMISTRY ORDERABLES Fi nal Result [facility] [address] [place] [address] * (ABNORMAL) COMPREHENSIVE METABOLIC PANEL (09/19/2024 1:31 PM CDT) Glucose 122(H) 65 - 99 mg/dL [facility] Comment: Fasting reference interval For someone without known diabetes, a glucose value between 100 and 125 mg/dL is consistent with prediabetes and should be confirmed with a follow-up test. BUN 11 7 - 25 mg/dL [facility] Creatinine 0.50 0.50 - 1.05 mg/dL [facility] eGFR by Cystatin C 107 > OR = 60 mL/min/1. 73m2 [facility] BUN/Creatinine Ratio SEE NOTE: 6 - 22 (calc) [facility] Comment: Not Reported: BUN and Creatinine are within reference range. Sodium 140 135 - 146 mmol/L [facility] Potassium 3.7 3.5 - 5.3 mmol/L [facility] Chloride 107 98 - 110 mmol/L [facility] CO2 25 20 - 32 mmol/L [facility] Calcium 8.5(L) 8.6 - 10.4 mg/dL [facility] Protein Total 6.8 6.1 - 8.1 g/dL [facility] Albumin 3.5(L) 3.6 - 5.1 g/dL [facility] Globulin Total 3.3 1.9 - 3.7 g/dL (calc) [facility] Albumin/Globulin Ratio 1.1 1.0 - 2.5 (calc) [facility] Bilirubin Total 0.7 0.2 - 1.2 mg/dL [facility] Alkaline Phosphatase 60 37 - 153 U/L [facility] AST 19 10 - 35 U/L [facility] ALT 10 6 - 29 U/L [facility] Comment: Test Performed at: [facility] [address] [place] [address] AUNG CADET MD Blood BLOOD SPECIMEN / Unknown 09/19/2024 1:31 PM CDT 09/19/2024 1:35 PM CDT Jyoti Gillis MD LAB - CHEMISTRY ORDERABLES Fin al Result Performing Organization Address City/State/[facility] Co de Phone Number [facility] [address] [place] [address] * ENDOSCOPY, COLON, DIAGNOSTIC (10/11/2023 1:15 PM CDT) Report Endoscopy POC Endoscopy Department Report _ Patient Name: Melania Laboy Procedure Date: 10/11/2023 1:15 PM Date of : 1965 Classification: Outpatient Gender: Female Ethnicity: or Race: White _ Providers: Jyoti Gillis MD, Guillermo Mc (Fellow) Referring MD: Procedure: Colonoscopy Indications: Follow-up of Crohn's disease of the small bowel and colon on Rizankizumab every 8 weeks Medications: Monitored Anesthesia Care Patient Profile: This is a 58 year old female. 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 The patient's tolerance of previous anesthesia was also reviewed. The risks and benefits of the procedure and the sedation options and risks were discussed with the patient. All questions were answered, and informed consent was obtained. Prior Anticoagulants: The patient has taken no anticoagulant or antiplatelet agents. ASA Grade Assessment: III - A patient with severe systemic disease. After reviewing the risks and benefits, the patient was deemed in satisfactory condition to undergo the procedure. After I obtained informed consent, the scope was passed under direct vision. Throughout the procedure, the patient's blood pressure, pulse, and oxygen saturations were monitored continuously. The Colonoscope was introduced through the anus and advanced to the terminal ileum. The colonoscopy was performed with difficulty due to poor bowel prep. The patient tolerated the procedure well. The quality of the bowel preparation was evaluated using the BBPS (Blue Eye Bowel Preparation Scale) with scores of: Right Colon = 2 (minor amount of residual staining, small fragments of stool and/or opaque liquid, but mucosa seen well), Transverse Colon = 2 (minor amount of residual staining, small fragments of stool and/or opaque liquid, but mucosa seen well) and Left Colon = 1 (portion of mucosa seen, but other areas not well seen due to staining, residual stool and/or opaque liquid). The total BBPS score equals 5. The terminal ileum, ileocecal valve, appendiceal orifice, and rectum were photographed. Findings: Skin tags were found on perianal exam. Semi-liquid semi-solid stool was found in the entire colon. Lavage of the area was performed using copious amounts, resulting in clearance with fair visualization except left colon where visualization was poor. Inflammation characterized by erythema and few erosions was found in the vickie terminal ileum. The inflammation was graded as Rutgeerts Score i2b .Biopsies were taken with a cold forceps for histology. Scope could not be advanced deep due to significant looping, but the visualized portion appeared normal. There is no endoscopic evidence of inflammation, stricture or ulcerations in the entire colon within the extent and limitations of the endoscopic exam due to prep. External hemorrhoids were found during retroflexion. Estimated Blood Loss: Estimated blood loss was minimal. Complications: No immediate complications. Impression: - Perianal skin tags found on perianal exam. - Stool in the entire examined colon. - Ileitis. Inflammation was found. This was graded as Rutgeerts Score i2b. Biopsied. - There is no endoscopic evidence of inflammation, stricture or ulcerations in the entire colon within the extent and limitations of the endoscopic exam due to prep - External hemorrhoids. Recommendation: - Discharge patient to home. - Low fiber diet - Continue Skyrizi every 8 weeks - Await pathology results. - Repeat colonoscopy in 2 years for surveillance with two day prep. - Return to referring physician as previously scheduled. Attending Participation: I was present and participated during the entire procedure, including non-rai portions. Procedure Code(s): --- Professional --- 38572, Colonoscopy, flexible; with biopsy, single or multiple Diagnosis Code(s): --- Professional --- K64.4, Residual hemorrhoidal skin tags K52.9, Noninfective gastroenteritis and colitis, unspecified K50.80, Crohn's disease of both small and large intestine without complications CPT copyright 2021 [employer]. All rights reserved. The codes documented in this report are preliminary and upon remote inpatient coder review may be revised to meet current compliance requirements. Jyoti Gillis MD 10/11/2023 2:00:46 PM Note Initiated On: 10/11/2023 1:15 PM Number of Addenda: 0 [employer] [address] [address] [facility] 10/11/2023 1:15 PM CDT us Jyoti Gillis MD GI PROCEDURE ORDERABLES Edited Result - Final Performing Organization Address City/[facility]/ZIP Co de Phone Number [facility] * (ABNORMAL) LIPID PROFILE (02/13/2023 11:05 AM FITTING SUPERVISOR) Cholesterol Total 153 <200 mg/dL 02/13/2023 1:27 PM [facility] HDL 39(L) >40 mg/dL 02/13/2023 1:27 PM [facility] Comment: ATP III Classification of HDL Cholesterol: <40 mg/dL: Considered a major risk factor. >60 mg/dL: Considered a negative risk factor. LDL Calculated 98 <100 mg/dL 02/13/2023 1:27 PM [facility] Comment: ATP III Classification of LDL Cholesterol: <100 mg/dL: Optimal 100 - 129 mg/dL: Near Optimal/Above Optimal 130 - 159 mg/dL: Borderline High 160 - 189 mg/dL: High >190 mg/dL: Very High Triglycerides 78 <150 mg/dL 02/13/2023 1:27 PM [facility] Comment: ATP III Classification of Triglycerides: <150 mg/dL: Normal 150 - 199 mg/dL: Borderline High 200 - 400 mg/dL: High >500 mg/dL: Very High Blood BLOOD SPECIMEN / Unknown Lab Venipuncture / Unknown 02/13/2023 11:05 AM FITTING SUPERVISOR 02/13/2023 11:28 AM FITTING SUPERVISOR us Merline Coon CANOE INSPECTOR-TANKAGE GRINDER OPERATOR LAB - CHEMISTRY ORDERAB LES Final Result Performing Organization Address [facility]/State/ZIP Co de Phone Number [address] [address], [facility] [phone] * HPV DETECTION HIGH RISK FEDERICO (05/04/2021 1:53 PM FITTING SUPERVISOR) High Risk Human Papilloma Result Not detected Not detected 05/05/2021 4:02 PM FITTING SUPERVISOR [facility] High Risk Human Papilloma Interp 05/05/2021 4:02 PM FITTING SUPERVISOR [facility] Comment:High Risk Human Hosea lloma Virus was Not Detected. Pathology/Cytolo gy ENTIRE ENDOCERVIX / Unknown 05/04/2021 1:53 PM FITTING SUPERVISOR 05/05/2021 11:40 AM FITTING SUPERVISOR Narrative [facility] - 05/05/2021 4:02 PM FITTING SUPERVISOR Nucleic acid isolated from the specimen was analyzed with a nucleic acid amplification test (FDA approved Gen-Probe HPV Assay) to detect high risk human papilloma virus (Types: 16, 18, 31, 33, 35, 39, 45, 51, 52, 56, 58, 59, 66, and 68). The reference range is Not Detected. Comment: These test results should not be used as the sole basis for clinical assessment and treatment of patients. These results should always be correlated with other available data (cytology, histology, and clinical information). Jammie Collins MD LAB - MICROBIOLOGY ORDERAB LES Final Result [facility] [address] [phone] * PAP IMAGE-GUIDED W HPV (05/04/2021 1:53 PM FITTING SUPERVISOR) Case Report Gynecologic Cytology Report Case: [id number] Authorizing Provider: Jammie Collins MD Collected: 05/04/2021 01:53 PM Ordering Location: [facility] Obstetrics Received: 05/05/2021 11:40 AM [facility] First Screen: Yevgeniy Smalls Specimen: THINPREP - IMAGE GUIDED, Endocervix 05/06/2021 12:07 PM FITTING SUPERVISOR [facility] LMP [id number]/06/2021 12:07 PM FITTING SUPERVISOR [facility] Menstrual Status 05/06/19 12:07 PM FITTING SUPERVISOR [facility] Specimen Adequacy Unsatisfactory due to scant cellularity. Obscuring foreign material present. 05/06/2021 12:07 PM FITTING SUPERVISOR [facility] Categorization Unable to render interpretation. 05/06/2021 12:07 PM FITTING SUPERVISOR [facility] Interpretation TEACHER COUNSELOR Unsatisfactory for interpretation. 05/06/2021 12:07 PM [facility] LAB at [address]7 FITTING SUPERVISOR Note(s) Specimen processed and examined but unsatisfactory for evaluation of epithelial abnormality because of scant squamous component. 05/06/2021 12:07 PM [facility] Pap Footnote The Pap Smear is a screening test. False positive and false negative results occur. Negative results do not preclude abnormalities, thus clinical correlation is required. This specimen was evaluated by the [employer] System along with an additional manual rescreening by a imaging tech and/or pathologist. 05/06/2021 12:07 PM [facility] Embedded Images 12:07 PM [facility] Pathology/Cytolo gy ENTIRE ENDOCERVIX / Unknown 05/04/2021 1:53 PM FITTING SUPERVISOR 05/05/2021 11:40 AM FITTING SUPERVISOR Jammie Collins MD LAB - PATHOLOGY/CYTOLOGY O RDERABLES Final Result Performing Organization Address City/[facility]/ZIP Co de Phone Number [facility] [address] [phone] * HIV-1 HIV-2 ANTIGEN/ANTIBODY (11/28/2018 11:59 AM CDT) HIV Antigen/Antibod y 1 & 2 Non-reacti ve Non-react remigio 11/28/2018 12:56 PM CDT [facility] Comment: Neither HIV-1 p24 Antigen nor HIV-1/HIV-2 Antibodies are detected. 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 Source: [facility]. 01/12/12; 04/02/18 04/02/2018 [facility] Advance Directives Documents on File Type Date Recorded Patient Finishing Range Feeder Expl anation Adv Directive/Living Will/POA 04/09/2019 7:29 AM [facility] * Full Code (Latest Code Status on File) Date Activated Date Inactivated Comments 01/10/2023 11:43 PM 01/13/2023 4:12 PM * Full Code Date Activated Date Inactivated Comments 01/22/2020 5:53 PM 01/27/2020 6:41 PM * Full Code Date Activated Date Inactivated Comments 08/28/2019 4:24 PM 09/02/2019 5:59 PM * Full Code Date Activated Date Inactivated Comments 06/18/2019 6:23 PM 06/20/2019 12:39 PM * Full Code Date Activated Date Inactivated Comments 12/19/2018 9:40 PM 12/21/2018 2:33 PM Care Teams Ichthyology Teacher Relationship Specialty Start Date End Date Rema Pena DO [address] DIV OF [facility] [place] [place] [phone] PCP - Attributed-[place] Medicaid [place] 01/11/23 Merline Coon, CANOE INSPECTOR-TANKAGE GRINDER OPERATOR [address] [phone] PCP - General Nurse Practitioner 10/09/23 Ashlie Swann, RN Registered Nurse Gastroenterology 09/21/17 Sonya Mortensen MD [address] [place] [address] Presentation Designer Gastroenterology 10/19/22 Romie Ryan MD [address] [place] [address] Orthopedic Surgery 10/19/22 Alf Donato MD [address] [place] [address] Dermatology 05/10/23
--- OUTSIDE RECORDS SUMMARY | 2025-01-31 09:17 | XMS_ITS | Encounter Summary ---
Author Organization [facility] Address [address] [place] [address] Care Team Providers Care Water Purifier Operator Name Role Phone Ashlie Swann RN Unavailable Unavailable Melissa Connell MD Primary Care Provider + [phone] Melissa Connell MD Primary Care Provider + [phone] Melissa Connell MD Primary Care Provider + [phone] Tahir Shah MD Primary Care Provider [phone] Melissa Connell MD Primary Care Provider + [phone] Naa Link MD Primary Care Provider [phone] Sharon Arthur MD Unavailable Sonya Mortensen MD Unavailable [phone] Romie Ryan MD Unavailable [phone] Sharon Arthur MD Unavailable Merline Coon WATER TRAINER-TRAVELING ACCOUNTANT Primary Care Provider Rema Pena DO Unavailable [phone] Sharon Arthur MD Primary Care Provider [phone] Alf Donato MD Unavailable [phone] Merline Coon WATER TRAINER-TRAVELING ACCOUNTANT Primary Care Provider Encounter Details Date Type Department Care Team (Late st Contact Info) Description 06/09/2021 Patient Outreach [facility] ENDOSCOPY [address] [place] [address] Claudine Wells, RN Social History Tobacco Use Types Packs/Day Years [...] Kelly Julian RN documented in this encounter Plan of Treatment Upcoming Encounters Date Type Department Care Team (Late st Contact Info) Description 03/26/2025 11:00 AM ASSISTANT FEDERAL PUBLIC DEFENDER Office Visit [facility] - Rheumatology [address] [place] [address], [place] [address] Yanni Villaseñor MD [address] [place] [address] [place] [address] 07/28/2025 8:30 AM CDT Office Visit [facility] - GI [address] [facility], [place] [address] Jyoti Gillis MD [address] [place] [phone] documented as of this encounter Goals Goal Patient Goal Type Associated Problems Recent Progress Patient-Stated? Author Medication Management General On track( 3:14 PM ASSISTANT FEDERAL PUBLIC DEFENDER) No Tori Nick, RN Note: Expected end date: Ongoing Interventions: Take all medications as prescribed Let your doctor know right away about any changes in your medications Make sure to request a refill of your medication at least one week prior to your last dose Mobility General On track( 8:44 AM CDT) No Tanika Waterman, FARAZ Note: Expected end date: 12/11/2019 The goal is to maintain or improve your mobility at the optimum level for you. 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 Source: [facility]. 01/12/12; 04/02/18 04/02/2018 CDIFF Under Investigation 12/28/2021 12/30/2021 10:22 PM CDT CDIFF Under Investigation 01/10/2023 01/10/2023 3:49 PM CDT CDIFF Under Investigation 04/15/2024 04/15/2024 11:27 PM ASSISTANT FEDERAL PUBLIC DEFENDER documented as of this encounter Care Teams Water Purifier Operator Relationship Specialty Start Date End Date Melissa Connell MD [address] [place] [phone] PCP - General 04/21/21 08/30/21 Melissa Connell MD [address] [place] [phone] PCP - General 08/31/21 12/27/21 Melissa Connell MD [address] [place] [phone] PCP - General 12/28/21 12/29/21 Tahir Shah MD [address] [facility] [address] DIV OF [facility] [place] [address] PCP - General 12/30/21 01/02/22 Melissa Connell MD [address] [place] [phone] PCP - General 01/03/22 07/05/22 Naa Link MD [address] [facility] [address] [place] [phone] PCP - General 07/06/22 10/26/22 Merline Coon, WATER TRAINER-TRAVELING ACCOUNTANT [address] [phone] PCP - General Nurse Practitioner 02/13/23 05/02/23 Rema Pena DO [address] [facility] [address] [place] [phone] PCP - Attributed-[place] Medicaid [place] 01/11/23 Sharon Arthur MD [address] [place] [address] PCP - General Internal Medicine 05/03/23 10/08/23 Merline Coon, WATER TRAINER-TRAVELING ACCOUNTANT [address] [place] [phone] PCP - General Nurse Practitioner 10/09/23 Ashlie Swann, FARAZ Registered Nurse Gastroenterology 09/21/17 Sharon Arthur MD [address] [place] [address] Resident - PCP Internal Medicine 10/19/22 10/08/23 Sonya Mortensen MD [address] [facility] [address] [place] [address] Spring Floor Service Worker Gastroenterology 10/19/22 Romie Ryan MD [address] [place] [address] Orthopedic Surgery 10/19/22 Sharon Arthur MD [address] [place] [address] Resident Internal Medicine 10/27/22 10/08/23 Alf Donato MD [address] [facility] [address] [place] [address] Dermatology 05/10/23 Sharon Arthur Primary Care Provider 10/27/22 10/27/22 documented as of this encounter
== END 2025-01-31 09:13 | disposition home or self-care (01) ==
PROVIDERS: PCP Nurse Practitioner Family; Visit Provider Orthopaedic Surgery
DX: S82.891D Other fracture of right lower leg, subsequent encounter for closed fracture with routine healing (principal); X58.XXXD Exposure to other specified factors, subsequent encounter; Z47.89 Encounter for other orthopedic aftercare; M25.571 Pain in right ankle and joints of right foot
CPT/HCPCS: 73700